=== PATIENT | female | born 1970 | race Caucasian/White ===

== ENCOUNTER 2017-10-13 09:02 | Outpatient (CLI) | payer BC ==
[2017-10-13] MEDS ORDERED: Iopamidol 370 76% 100 ML VIAL ONE (16:46)
== END 2017-10-13 09:03 | disposition home or self-care (01) ==
LOC: BICCT 09:02
PROVIDERS: ATTEND Internal Medicine Hematology & Oncology
DX: C78.7 Secondary malignant neoplasm of liver and intrahepatic bile duct (principal); C56.1 Malignant neoplasm of right ovary; K76.89 Other specified diseases of liver
CPT/HCPCS: 74177

== ENCOUNTER 2018-01-19 07:37 | Outpatient (CLI) | payer BC ==
[2018-01-19] MEDS ORDERED: ISOVUE-370 76%-LOCM 1 ML ONE (12:35)
== END 2018-01-19 07:38 | disposition home or self-care (01) ==
LOC: BICCT 07:37
PROVIDERS: ATTEND Internal Medicine Hematology & Oncology
DX: C56.1 Malignant neoplasm of right ovary (principal); C78.7 Secondary malignant neoplasm of liver and intrahepatic bile duct; K76.89 Other specified diseases of liver; K43.9 Ventral hernia without obstruction or gangrene; R19.00 Intra-abdominal and pelvic swelling, mass and lump, unspecified site
CPT/HCPCS: 74177

== ENCOUNTER 2018-04-20 09:03 | Outpatient (CLI) | payer BC ==
[2018-04-20] MEDS ORDERED: ISOVUE-370 76%-LOCM 1 ML ONE (12:21)
--- NOTE | 2018-04-20 13:12 | CT ---
CT ABDOMEN WITH CONTRAST CT PELVIS WITH CONTRAST: COMPARISON: 01/19/18 and 10/13/17. HISTORY: Malignant neoplasm of the ovary. 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 The patient is currently on chemotherapy. FINDINGS: ABDOMEN CT: No masses or consolidation of the lung bases. Heart size is normal. No pericardial effusion. The d escending thoracic aorta and abdominal aorta have a normal caliber. No periaortic fat stranding. No gastrohepatic, retrocrural, or periportal lymphadenopathy. Intra- and extrahepatic portal vein is patent. Unremarkable gallbladder. Spleen, pancreas, and adrenal glands have appropriate enhancement. There is an ill-defined hypodense lesion in the posterior segment of the right hepatic lobe measuring 2.1 x 1.1 cm. Intrahepatic metastases is favored. Additional hepatic masses are not appreciated. Previously, this mass measured approximately 1.9 x 0.7 cm. No mesenteric mass, lymphadenopathy, free air, or free fluid. Redemonstration of ventral abdominal hernia containing a segment of transverse colon through the defe ct. No associated obstruction. Stable surgical clips in the left abdominal mesentery. Stable nodularity. Gastroc mucosa, duodenum, and multiple normal-caliber small bowel loops are noted. Ileocecal junctio n is normal. Unremarkable colon. Symmetric enhancement of the kidneys. No obstructive uropathy. PELVIC CT: Decompressed urinary bladder. Surgically absent uterus. No pelvic mass, lymphadenopathy, free air, or free fluid. No lytic or blastic lesions in the osseous structures. IMPRESSION: 1. Redemonstration of an indeterminate lesion in the right hepatic lobe. When compared to prior exa ms, no significant appreciable change. In September of 2017, this lesion measured 2.0 x 1.8 cm. 2. Stable nodularity in the left abdominal mesentery. 3. Redemonstration of ventral abdominal wall hernia containing transverse colon without associated b owel obstruction. POS: [facility]
== END 2018-04-20 09:04 | disposition home or self-care (01) ==
LOC: BICCT 09:03
PROVIDERS: ATTEND Internal Medicine Hematology & Oncology
DX: C56.1 Malignant neoplasm of right ovary (principal); C78.7 Secondary malignant neoplasm of liver and intrahepatic bile duct; K76.9 Liver disease, unspecified; K43.9 Ventral hernia without obstruction or gangrene; K66.8 Other specified disorders of peritoneum
CPT/HCPCS: 74177

== ENCOUNTER 2018-06-11 09:10 | Outpatient (CLI) | payer BC | END 2018-06-11 09:11 | disposition home or self-care (01) | LOC: BICMAMMO 09:10 | PROVIDERS: ATTEND Internal Medicine Hematology & Oncology | DX: Z12.31 Encounter for screening mammogram for malignant neoplasm of breast (principal); Z80.3 Family history of malignant neoplasm of breast | CPT/HCPCS: 77063; 77067 ==

== ENCOUNTER 2018-07-23 08:27 | Outpatient (CLI) | payer BC ==
--- NOTE | 2018-07-23 11:07 | CT ---
CT CHEST AND ABDOMEN AND PELVIS WITH IV CONTRAST: DATE: 07/23/2018. PROVIDED CLINICAL HISTORY: History of ovarian cancer. FINDINGS: Comparison is made with the examination noted 04/20/2018. The heart, pericardium, and great vessels demonstrate a normal CT appearance. The airway appears pat ent and of normal caliber. No evidence for thoracic lymph node enlargement. The lungs are free of s ignificant opacity. No pleural fluid or pleural thickening is evident. Peritoneal-based soft tissue nodularity appears not significantly changed with respect to the prior s tudy. Interval decrease in size in right hepatic lobe hypodensity now measuring about 1.4 cm in grea test transverse dimension as compared to 2.1 cm on the prior study. The solid abdominal organs demon strate an otherwise stable CT appearance. There is no bowel dilatation, inflammatory fat stranding, free fluid, or lymph node enlargement appar ent. Colon containing ventral abdominal hernia is again demonstrated, with the amount of colon herni ated appearing increased with respect to the prior study. There are several new small bowel-containi ng ventral abdominal hernias involving the more inferior aspects of the anterior abdominal wall. The regional major vascular structures appear unremarkable. The osseous structures demonstrate no co ncerning lytic or blastic lesions. IMPRESSION: 1. Unremarkable CT of the chest. 2. Interval decrease in size of right hepatic lobe hypodensity. 3. Stable peritoneal-based soft tissue nodularity. 4. Ventral abdominal hernias as above. POS: [facility]
== END 2018-07-23 08:28 | disposition home or self-care (01) ==
LOC: BICCT 08:27
PROVIDERS: ATTEND Internal Medicine Hematology & Oncology
DX: C78.7 Secondary malignant neoplasm of liver and intrahepatic bile duct (principal); C56.1 Malignant neoplasm of right ovary; K43.9 Ventral hernia without obstruction or gangrene
CPT/HCPCS: 71260; 74177

== ENCOUNTER 2018-10-23 08:00 | Outpatient (CLI) | payer BC ==
--- NOTE | 2018-10-23 09:24 | CT ---
CT ABDOMEN AND PELVIS WITH ORAL AND IV CONTRAST: Date: 10/23/18 HISTORY: Ovarian cancer. Malignant neoplasm of right ovary, secondary malignant neoplasm of liver and intrahep atic bile duct. Patient is on chemotherapy. COMPARISON: 07/23/18 and 04/20/18. FINDINGS: Lung bases are clear. Soft tissue nodularity in the peritoneum/omentum is stable. No free air, free f luid, or lymphadenopathy is noted in the abdomen or pelvis. The heterogeneous lesion in the right lobe of the liver noted on the previous exam currently measures 18.0 mm (previously 14.0 mm). No new liver lesions are seen. The spleen, pancreas, adrenal glands, a nd kidneys are normal. The small bowel loops are not abnormally dilated. There is a stable colon containing ventral abdomina l hernia. Multiple small ventral hernias containing unobstructed loops of small bowel are stable. The patient is post hysterectomy. No calcified gallstones are seen. There is no evidence of aneurysma l dilatation of the abdominal aorta. There are degenerative changes of the spine. No osteolytic or os teoblastic lesions are seen. IMPRESSION: 1. Mild interval increase in size of the right liver lobe lesion since 07/23/18. 2. Stable peritoneal based soft tissue nodularity. 3. Stable ventral abdominal hernias. POS: [facility]
[2018-10-23] MEDS ORDERED: ISOVUE-370 76%-LOCM 1 ML ONE (15:24)
== END 2018-10-23 08:01 | disposition home or self-care (01) ==
LOC: BICCT 08:00
PROVIDERS: ATTEND Internal Medicine Hematology & Oncology
DX: C56.1 Malignant neoplasm of right ovary (principal); C78.7 Secondary malignant neoplasm of liver and intrahepatic bile duct; D70.8 Other neutropenia; K43.9 Ventral hernia without obstruction or gangrene; K76.9 Liver disease, unspecified
CPT/HCPCS: 74177; Q9966

== ENCOUNTER 2019-03-26 07:29 | Outpatient (CLI) | payer BC ==
--- NOTE | 2019-03-26 08:49 | CT ---
CT OF CHEST AND ABDOMEN AND PELVIS: DATE: 03/26/2019. COMPARISON: CT of abdomen and pelvis 10/23/2018, CT of the chest, abdomen, and pelvis 07/23/2018, and CT of the ab domen and pelvis 04/20/2018. HISTORY: Right ovarian malignancy, hepatic metastatic disease, rising CA-125 levels. TECHNIQUE: Axial CT imaging at 5 mm intervals from the thoracic inlet through the pubic symphysis with intraveno us and oral contrast. Coronal reformatted imaging obtained. FINDINGS: No lymphadenopathy is noted within the axillary, hilar, or mediastinal regions. No pleural, pericardi al, or mediastinal fluid. Vascular structures of the chest appear patent. No pneumothorax noted. No discrete pulmonary parenchymal mass lesion or nodule noted on either side. No endobronchial lesion is seen on either side. Review of the osseous structures of the chest demonstrate no acute findings. No free intraperitoneal air or fluid. Soft tissue nodularity involving the peritoneum on the surface of the right lobe of the liver within the anterior right upper quadrant is stable when compared to multiple prior examinations. There is a lesion within the right lobe of the liver measuring approximately 2.1 x 1.5 cm, slightly increased in size when compared to 10/23/2018 at which time the lesion measured 1.3 x 1.8 cm. This lesion measured 1.3 x 1.4 cm on 07/23/2018 and measured 2.1 x 1.2 cm on 04/20/2018. No additional liver lesio n is seen. Gallbladder and spleen appear unremarkable. Pancreas, adrenal glands, and kidneys demonstrate no acute findings. Uterus is surgically absent. There is an area of soft tissue nodularity in the right hemipelvis adjacent to the sigmoid colon on i mage 106 measuring 1 cm in AP dimension. This has increased from the most recent prior study at which time it measured 6-7 mm. This may represent a small metastatic focus. In addition, on image 108 , within the left hemipelvis there is a soft tissue nodule adjacent to the colon measuring 1.4 cm, increased from 7 mm on the most recent prior exam. There is a ventral hernia containing nonobstructed bowel. Defect in anterior abdominal wall measures 4.4 cm in transverse dimension and hernia sac measures at least 7-8 cm in transverse dimension. Just below this there is a second small hernia containing a nonobstructed loop of small bowel. There is no evidence for bowel obstruction. The appendix is abnormal on this examination. The appendix is dilated, measuring 1.1 cm in transverse dimension. There is also mucosal thickening and enhancement of the appendix. This may represent acute appendicitis in the proper clinical setting. There are subtle areas of soft tissue nodularity involving the mesenteric fat in the left upper quadr ant, which includes a soft tissue nodule measuring up to 1.1 cm in craniocaudal dimension on coronal image 21,, slightly enlarged when compared to the 10/23/2018 examination at which time this no dule measured 9-10 mm. Angulated soft tissue nodularity noted in the mid right abdomen anterior to the ascending colon, joana lar when compared to multiple prior exams. No lymphadenopathy is appreciated within the abdomen or pelvis. Review of the osseous structures of the abdomen/pelvis demonstrate no worrisome lytic or blastic lesi ons. There is multilevel lower lumbar spine facet hypertrophy. IMPRESSION: 1. Mild interval enlargement in metastatic lesion within the right lobe of the liver. 2. Subtle increased conspicuity of soft tissue nodularity within the left upper quadrant and pelvis, which may signify early slight progression of metastatic disease 3. New abnormal appearance of the appendix. This may signify acute appendicitis. Results were called to Dr. Das at 9:00 AM 03/26/2019. CODE CR Transcribed Date/Time: 03/26/2019 9:23 AM
[2019-03-26] MEDS ORDERED: ISOVUE-370 76%-LOCM 1 ML ONE (12:31)
== END 2019-03-26 07:30 | disposition home or self-care (01) ==
LOC: BICCT 07:29
PROVIDERS: ATTEND Internal Medicine Hematology & Oncology
DX: C78.7 Secondary malignant neoplasm of liver and intrahepatic bile duct (principal); C56.1 Malignant neoplasm of right ovary; R16.0 Hepatomegaly, not elsewhere classified
CPT/HCPCS: 71260; 74177

== ENCOUNTER 2019-03-31 15:23 | Outpatient (CLI) | payer BC ==
[2019-03-31 16:30] LABS: #Eosinphils 0.1 thou/uL (0.0-0.7); #Lymphocytes 2.6 thou/uL (1.20-3.40); #Monocytes 0.8 thou/uL (0.11-0.59); %Basophils 0.5 % (0.0-1.0); %Eosinophils 1.5 % (0.0-10.0); %Lymphocytes 26.8 % (21.0-51.0); %Neutrophils 63.2 % (42.0-75.0); Hemoglobin 15.9 g/dL (12.0-16.0); Mean Corpuscular HGB CONC 34.1 g/dL (32.0-36.0); Mean Corpuscular Hemoglobin 33.5 pg (27.0-31.0); Mean Corpuscular Volume 98.3 fL (78.0-98.0); Mean Platelet Volume 7.2 fL (7.4-10.4); Platelet Count 264 thou/uL (130-400); RBC Distribution Width 14.4 % (11.5-14.5); Red Blood Cell (RBC) Count 4.76 mill/uL (4.20-5.40); White Blood Cell (WBC) Count 9.5 thou/uL (4.8-10.8)
[2019-03-31 16:55] LABS: ALT (SGPT) 14 U/L (8-55); AST (SGOT) 17 U/L (5-34); Albumin 3.8 g/dL (3.5-5.0); Alkaline Phosphatase 96 U/L (40-150); Anion Gap 15 mmol/L (10-20); BUN (Urea Nitrogen) 8 mg/dL (7.0-18.7); Bilirubin, Total 0.7 mg/dL (0.2-1.2); Calc. Creatinine Clearance 0 mL/min (70-130); Calcium 9.8 mg/dL (7.8-10.44); Carbon Dioxide 28 mmol/L (22-29); Chloride 99 mmol/L (98-107); Estimated GFR-MDRD 88; Globulin 2.9 g/dL (2.4-3.5); Glucose 93 mg/dL (70-105); Potassium 3.9 mmol/L (3.5-5.1); Protein, Total 6.7 g/dL (6.0-8.3); Sodium 138 mmol/L (136-145)
== END 2019-03-31 15:24 | disposition home or self-care (01) ==
LOC: LABBT 15:23
PROVIDERS: ATTEND Surgery
DX: K36 Other appendicitis (principal)
CPT/HCPCS: 80053; 85025

== ENCOUNTER 2019-04-05 05:47 | Day surgery (SDC) | payer BC ==
[2019-03-31 15:43] VITALS: BMI 34.3
[2019-04-05] MEDS ORDERED: cefOXitin 2 GM VIAL ONE (06:13)
[2019-04-05] MEDS ORDERED: Sodium Chloride 0.9% 100 ML ONE (06:13)
[2019-04-05] MEDS ORDERED: Bupivacaine/Epinephrine 0.25% 30 ML VIAL ONE (06:45)
[2019-04-05] MEDS ORDERED: Midazolam HCl 2 mg/2 ml Vial ONE (07:06)
[2019-04-05] MEDS ORDERED: Fentanyl 250 MCG/5 ML VIAL ONE (07:08)
[2019-04-05] MEDS ORDERED: SUGAMMADEX SODIUM 200 MG/2 ML VIAL ONE (08:28)
[2019-04-05] MEDS ORDERED: Promethazine HCl 25 MG/ML VIAL ONE (08:38)
[2019-04-05] MEDS ORDERED: Fentanyl 100 MCG/2 ML VIAL ONE (09:00)
--- NOTE | 2019-04-05 10:53 | OP ---
DATE OF PROCEDURE: 04/05/2019 PREOPERATIVE DIAGNOSIS: Chronic appendicitis with history of ovarian cancer. PROCEDURES PERFORMED: Laparoscopic appendectomy and excision of peritoneal nodule. INDICATIONS: This is a 48-year-old female, who is undergoing chemotherapy for disseminated ovarian cancer, who on followup CT was found to have an enlarged dilated appendiceal tip that was suspicious. She had some mild right lower quadrant tenderness. FINDINGS: There was some peritoneal nodules, but they were scattered and rare. The appendix did not appear to be inflamed, but did have a dilated tip in a narrow base. DESCRIPTION OF PROCEDURE: After informed consent was obtained, the patient was taken to the operating room and given general endotracheal anesthesia, placed in the supine position. Abdomen was prepped and draped in usual fashion. Local anesthesia was infiltrated subcutaneously and deep. A 5-mm incision was performed in the right upper quadrant to avoid adhesions. A Veress needle was inserted. Drop test performed. Pneumoperitoneum was created to a volume of 2 L of carbon dioxide. Utilizing a bladeless 5-mm trocar and 0-degree laparoscope, direct visual entry into the abdominal cavity was performed. Pneumoperitoneum was created to a pressure of 15 mmHg. Then, a 12-mm port was placed subumbilical and another 5-mm port placed suprapubic. The appendix was found. The mesoappendix divided, utilizing the LigaSure. The base of the appendix was divided with a linear 45 mm white load stapler. A peritoneal nodule was found and this was excised utilizing the LigaSure and placed in the endosac with the appendix, then retrieved and sent separately. Hemostasis was assured. Trocars and retractors were removed after the fascia was closed with 0 Vicryl suture and the GraNee needle in the midline. Then, the skin closed with interrupted 4-0 Rapide. Dermabond applied. The patient tolerated the procedure well, transferred to Recovery in good condition. Sponge and needle count verified correct x2. Job ID: [id number]
[2019-04-05] MEDS ORDERED: Glycopyrrolate 0.2 MG/ML 5 ML SYRINGE ONE (14:46)
[2019-04-05] MEDS ORDERED: Dexamethasone 20 MG/5 ML VIAL ONE (14:46)
[2019-04-05] MEDS ORDERED: Ondansetron PF 4 MG/2 ML Vial ONE (14:46)
[2019-04-05] MEDS ORDERED: PROPOFOL 200 MG/20 ML VIAL ONE (14:46)
[2019-04-05] MEDS ORDERED: Rocuronium Bromide 10 MG/ML (10ML VIAL) ONE (14:46)
== END 2019-04-05 10:38 | disposition home or self-care (01) ==
LOC: SDC 05:47
PROVIDERS: ATTEND Surgery
PROC: 0DTJ4ZZ Resection of Appendix, Percutaneous Endoscopic Approach (ICD-10-PCS; principal; 2019-04-05)
DX: C78.5 Secondary malignant neoplasm of large intestine and rectum (principal); C56.9 Malignant neoplasm of unspecified ovary; K66.8 Other specified disorders of peritoneum; F17.210 Nicotine dependence, cigarettes, uncomplicated; E66.01 Morbid (severe) obesity due to excess calories; K21.9 Gastro-esophageal reflux disease without esophagitis; J45.909 Unspecified asthma, uncomplicated; Z68.34 Body mass index [BMI] 34.0-34.9, adult; Z79.899 Other long term (current) drug therapy; Z88.1 Allergy status to other antibiotic agents
CPT/HCPCS: 88304; 88305; 88341; 88342; J0694; J1100; J2250; J2405; J2550; J2704; J3010; J3490

== ENCOUNTER 2019-08-05 08:17 | Outpatient (CLI) | payer MEDICARE ==
--- NOTE | 2019-08-05 09:42 | CT ---
CT OF THE CHEST, ABDOMEN AND PELVIS WITH IV CONTRAST INDICATION: History of ovarian malignancy with secondary malignancy of the liver and intrahepatic abida e ducts COMPARISON: CT of the chest, abdomen and pelvis dated March 26, 2019, CTA of the abdomen and pelvis dated October 23, 2018, CTA of the chest, abdomen and pelvis dated July 23, [address] the abdomen and pelvis dated April 20, 2018. FINDINGS: CHEST: Lungs: There are areas of subsegmental volume loss involving the lingula and right lower lobe. No simon picious pulmonary nodule is identified. Pleural space: No effusion. Mediastinum: No pathologically enlarged lymph nodes are evident. Axilla: No pathologically enlarged lymph nodes. ABDOMEN: Lung bases: Clear Liver: The hypodense lesion involving segment 6 of the right hepatic lobe on image 61 of series 2 is relatively stable measuring 1.9 x 2.1 cm were previously the lesion measured 2.0 x 1.9 cm. Gallbladder: Contracted Pancreas: Normal. Adrenal glands: Normal. Spleen: Normal. Kidneys and ureters: Normal. No hydronephrosis. Vasculature: Normal. Lymph nodes:No lymphadenopathy. Free fluid in abdomen:No free fluid is evident. PELVIS: Small and large bowel: There is stable anterior abdominal wall incisional hernias containing loops of small bowel and colon. Appendix:Surgically absent Bladder: Normal. Rectal and perirectal soft tissues:Normal. Reproductive structures: Surgically absent Free fluid in pelvis: The soft tissue nodularity involving the right aspect uterine resection site is increased in prominence. There is a curvilinear soft tissue mass now present right of midline measuring approximately 6.1 x 1.9 cm on image 105 of series 2 and image 32 of series 5. There is a cu rvilinear enlarging soft tissue nodularity, left of midline, seen on image 108 of series 2 measuring 3.6 cm that has increased in size from the prior exam. There is worsening mesenteric nodula rity seen involving the right and left upper quadrants of the abdomen. There is caking underlying the undersurface of both hemidiaphragms is increased in prominence. Index peritoneal mesenteric nodul e within the left upper quadrant of the abdomen now measures 2.1 cm were previously it measured approximately 1.1 cm. There is accentuated mesenteric nodule within the right upper quadrant of the a bdomen on image 66 of series 2 measuring 3.3 cm were previously it measured approximately 2.5 cm. There is worsening nodularity seen within the right paracolonic gutter. Lymphadenopathy pelvis: No lymphadenopathy is evident. Osseous structures: No acute osseous abnormality. No destructive osteolytic or osteoblastic lesion i s identified. There is scattered degenerative and osteoarthritic changes. Soft tissues:Normal. IMPRESSION: 1. Worsening peritoneal carcinomatosis involving the abdomen and pelvis. 2. Stable hypodense lesion involving the right hepatic lobe. 3. Interval appendectomy. 4. Stable anterior abdominal incisional hernia contains loops of small bowel and colon.
[2019-08-05] MEDS ORDERED: Iopamidol-370 76% 500 ML 1 ML ONE (13:32)
== END 2019-08-05 08:18 | disposition home or self-care (01) ==
LOC: BICCT 08:17
PROVIDERS: ATTEND Internal Medicine Hematology & Oncology
DX: C56.1 Malignant neoplasm of right ovary (principal); C78.7 Secondary malignant neoplasm of liver and intrahepatic bile duct; C78.6 Secondary malignant neoplasm of retroperitoneum and peritoneum; K76.9 Liver disease, unspecified; K43.2 Incisional hernia without obstruction or gangrene; D70.8 Other neutropenia; Z90.49 Acquired absence of other specified parts of digestive tract
CPT/HCPCS: 36415; 71260; 74177; 80053; 82248; 83615; 84100; 84550; 85025; 86304; Q9967

== ENCOUNTER → 2019-08-19 | Day surgery (SDC) | payer MEDICARE ==
[~2019-08-19] MED LIST: Iopamidol 300 61% 50 ML VIAL FS ONE
--- NOTE | 2019-08-19 10:27 | RAD ---
Fluoroscopic vascular port check HISTORY: Left subclavian Mediport nonfunctioning. FINDINGS: Sterile access obtained by nursing personnel to the left subclavian Mediport. Isovue-300 co ntrast material carefully injected. With significant pressure required, a small amount of contrast was seen to extend through the catheter tip and immediately adjacent to the catheter tip along its le ngth, including the extrathoracic portion. Injected contrast flow was never brisk enough to confirm venous flow away from the catheter. Review of CT images from 08/05/2019 shows a faint hyperdense fibrous sheath encasing the distal portion of the vascular catheter, extending extrathoracic to the left infraclavicular level. Catheter was flushed with small amount of sterile saline. Needle removed. Patient tolerated the proce dure well and was dismissed in good condition. IMPRESSION: Large fibrous sheath encasing most or all of the left subclavian Mediport catheter. Minim al contrast was able to be injected, and brisk venous flow from the injected contrast was not seen.
== END ==
LOC: SPEC 08:20
PROVIDERS: ATTEND Internal Medicine Hematology & Oncology
PROC: B3121ZZ Fluoroscopy of Left Subclavian Artery using Low Osmolar Contrast (ICD-10-PCS; principal; 2019-08-19)
DX: T82.598A Other mechanical complication of other cardiac and vascular devices and implants, initial encounter (principal); C56.1 Malignant neoplasm of right ovary; C78.7 Secondary malignant neoplasm of liver and intrahepatic bile duct; D70.8 Other neutropenia; Z88.1 Allergy status to other antibiotic agents
CPT/HCPCS: 36598; J1642; Q9967

== ENCOUNTER 2019-09-06 08:21 | Inpatient (IN) | payer MEDICARE ==
[2019-09-06 09:09] LABS: ALT (SGPT) 23 U/L (8-55); AST (SGOT) 20 U/L (5-34); Albumin 3.8 g/dL (3.5-5.0); Alkaline Phosphatase 98 U/L (40-110); Anion Gap 16 mmol/L (10-20); BUN (Urea Nitrogen) 13 mg/dL (7.0-18.7); Bilirubin, Total 0.7 mg/dL (0.2-1.2); Calc. Creatinine Clearance 0 mL/min (70-130); Calcium 9.5 mg/dL (7.8-10.44); Carbon Dioxide 24 mmol/L (22-29); Chloride 99 mmol/L (98-107); Estimated GFR-MDRD 87; Globulin 2.9 g/dL (2.4-3.5); Glucose 128 mg/dL (70-105); Lipase 5 U/L (8-78); Protein, Total 6.7 g/dL (6.0-8.3); Sodium 135 mmol/L (136-145)
[2019-09-06] MEDS ORDERED: Ondansetron PF 4 MG/2 ML Vial ONE (09:09)
[2019-09-06] MEDS ORDERED: Morphine 4 MG/ML VIAL ONE (09:09)
[2019-09-06 09:19] LABS: #Basophils 0.1 thou/uL (0.0-0.2); #Eosinphils 0.1 thou/uL (0.0-0.7); #Lymphocytes 2.2 thou/uL (1.20-3.40); #Monocytes 1.9 thou/uL (0.11-0.59); #Neutrophils 10.8 thou/uL (1.40-6.50); %Basophils 0.4 % (0.0-1.0); %Eosinophils 0.8 % (0.0-10.0); %Lymphocytes 14.5 % (21.0-51.0); %Monocytes 12.6 % (0.0-10.0); %Neutrophils 71.8 % (42.0-75.0); Hemoglobin 15.9 g/dL (12.0-16.0); Mean Corpuscular Hemoglobin 33.7 pg (27.0-31.0); Mean Platelet Volume 7.7 fL (7.4-10.4); Platelet Count 519 thou/uL (130-400); RBC Distribution Width 14.7 % (11.5-14.5); Red Blood Cell (RBC) Count 4.72 mill/uL (4.20-5.40); White Blood Cell (WBC) Count 15.1 thou/uL (4.8-10.8)
[2019-09-06 09:38] LABS: Bilirubin Negative (Negative); Blood, Urine Negative (Negative); Clarity Clear (Clear); Glucose, Urine (Dipstick) Normal (Negative); Leukocyte Negative Leu/uL (Negative); Nitrite Negative (Negative); Protein, Urine (Dipstick) 50 mg/dL (Neg-Trace); RBC/HPF 0-3 HPF (0-3); Squamous Epithelial 0-3 HPF (0-3); WBC/HPF 0-3 HPF (0-3)
[2019-09-06 09:48] LABS: Bacteria/HPF 1+ HPF (None Seen)
--- NOTE | 2019-09-06 10:49 | CT ---
CT Abdomen Pelvis W Con HISTORY: Nausea, vomiting, diarrhea and abdominal pain bleeding cancer with liver metastases COMPARISON: 08/05/2019 FINDINGS: There are mild dependent changes at the right lung base. No calcified gallstones are seen. 2 cm hypodense lesion in segment 6 of the right hepatic lobe is stable. The spleen, pancreas, adrenal glands and kidneys are normal. There is a small amount of free fluid in the abdomen and pelvis which is new since the last exam. Per itoneal nodules are slightly smaller compared to the previous study measuring about 15 mm in the left upper quadrant and the right pelvis. Ventral hernias containing bowel are again seen.. There is a wall thickening, enhancement and mild dilatation of the distal small bowel loops, new since the last exam. There are degenerative changes in the spine no osteolytic or osteoblastic lesions are seen . IMPRESSION: Findings are suggestive of enteritis and partial small bowel obstruction.
[2019-09-06] MEDS ORDERED: Acetaminophen 325 MG TAB PO PRN (12:12)
--- NOTE | 2019-09-06 12:25 | PDOC.HHP ---
Hospitalist HPI - History of Present Illness vomiting History of Present Illness: Ms. Mosley is a 49-year-old lady with past medical history of ovarian cancer on chemotherapy, hypertension, hypothyroidism who presents to the emergency room with nausea, vomiting, loose stools since Friday. She states prior to this she was fine. She ate some leftover sausage and sauerkraut on Friday night and went to bed. When she awoke on Friday she started to feel queasy and started vomiting around noon time. The vomitus is described as clear, nonbilious, nonbloody. She states that since Friday she has had multiple episodes and is unable to quantify the number of time she has vomited. This is accompanied by a crampy abdominal pain, which radiates across the umbilicus, the severity was about a 7 out of 10, intermittent. Additionally today and last night started having some greenish loose stools without any mucus or blood noted. She denies any fever or chills since symptom onset. She was scheduled to undergo chemotherapy this week, but felt quite weak today and decided to come to the emergency room. Hospitalist ROS - Review of Systems Constitutional: denies: fever, chills, sweats, weakness, malaise, other Eyes: denies: pain, vision change, conjunctivae inflammation, eyelid inflammation, redness, other ENT: denies: ear pain, ear discharge, nose pain, nose discharge, nose congestion , mouth pain, mouth swelling, throat pain, throat swelling, other Respiratory: denies: cough, dry, shortness of breath, hemoptysis, SOB with excertion, pleuritic pain, sputum, wheezing, other Cardiovascular: denies: chest pain, palpitations, orthopnea, paroxysmal noc. dyspnea, edema, light headedness, other Gastrointestinal: reports: nausea, abdominal pain, diarrhea Genitourinary: denies: dysuria, frequency, incontinence, hematuria, retention, other Musculoskeletal: denies: neck pain, shoulder pain, arm pain, back pain, hand pain, leg pain, foot pain, other Skin: denies: rash, lesions, lilian, bruising, other Neurological: denies: weakness, numbness, incoordination, change in speech, confusion, seizures, other - Medication Medications: lisinopril FriSep 06, 2019 09:26 RomeroSIS giraldo Jessica TABLET : Strength - 10 mg : ORAL Patient Dose: 1 tab(s) Oral once a day. [place] FriSep 06, 2019 09:26 SIS Jasso Jessica TABLET : Strength - 7.5 mg-325 mg : ORAL Patient Dose: 1 tab(s) Oral. Zofran ODT FriSep 06, 2019 09:26 SIS Jasso Jessica TABLET,DISINTEGRATING : Strength - 4 mg : ORAL Patient Dose: 1 tab(s) Oral As Needed. pregabalin (bulk) FriSep 06, 2019 09:26 SIS Jasso Jessica powder : Strength - 100 % : MISCELLANEOUS Patient Dose: 75 mg Oral once a day. prochlorperazine FriSep 06, 2019 09:27 SIS Jasso Jessica suppository : Strength - 5 mg : RECTAL Patient Dose: 10 mg Oral As Needed. valACYclovir FriSep 06, 2019 09:27 SIS Jasso Jessica tablet : Strength - 1,000 mg : ORAL Patient Dose: 1 g Oral once a day. dicyclomine oral FriSep 06, 2019 09:27 SIS Jasso Jessica capsule : Strength - 10 mg : ORAL Patient Dose: 10 mg Oral 2 times a day. ALPRAZolam FriSep 06, 2019 09:27 SIS Jasso Jessica tablet : Strength - 0.5 mg : ORAL Patient Dose: Unknown. dexamethasone FriSep 06, 2019 09:28 SIS Jasso Jessica tablet : Strength - 4 mg : ORAL Patient Dose: Unknown.PRIOR TO CHEMO. hydrOXYzine HCl oral FriSep 06, 2019 09:28 SIS Jasso Jessica tablet : Strength - 25 mg : ORAL Patient Dose: As Needed. benzonatate FriSep 06, 2019 09:29 SIS Jasso Jessica capsule : Strength - 100 mg : ORAL Patient Dose: As Needed. rosuvastatin FriSep 06, 2019 09:29 SIS Jasso Jessica tablet : Strength - 5 mg : ORAL Patient Dose: 5 mg Oral once a day. [place] Thyroid FriSep 06, 2019 09:29 SIS Jasso Jessica tablet : Strength - 30 mg : ORAL Patient Dose: 45 mg Oral once a day. DULoxetine FriSep 06, 2019 09:30 SIS Jasso, Taty capsule,delayed release(/EC) : Strength - 60 mg : ORAL Patient Dose: 60 mg Oral once a day. Hospitalist History - Past Medical History Source: patient Cardiac: reports: HTN Pulmonary: reports: no pertinent history AUT[employer] DAMAGE [employer]: reports: no pertinent history Gastrointestinal: reports: no pertinent history Heme/Onc: reports: Cancer (ovarian) Hepatobiliary: reports: no pertinent history Psych: reports: no pertinent history Musculoskeletal: reports: no pertinent history Rheumatologic: reports: no pertinent history Infectious Disease: reports: no pertinent history ENT: reports: no pertinent history Renal/: reports: no pertinent history Endocrine: reports: Hypothyroidism - Past Surgical History Past Surgical History: reports: Hysterectomy, Tonsillectomy - Family History Family History: reports: cancer (breast in mother) - Social History Smoking Status: Current some day smoker Alcohol: reports: Occassional Drugs: reports: none Living Situation: With Family Activity level: independent ambulation - Exam General Appearance: NAD, awake alert Eye: PERRL, anicteric sclera ENT: normocephalic atraumatic, no oropharyngeal lesions, moist mucosa Neck: supple, symmetric, no JVD, no thyromegaly, no lymphadenopathy, no carotid bruit Heart: RRR, no murmur, no gallops, no rubs, normal peripheral pulses Respiratory: CTAB, no wheezes, no rales, no ronchi, normal chest expansion, no tachypnea, normal percussion Gastrointestinal: soft, non-tender, non-distended, normal bowel sounds, no palpable masses, no hepatomegaly, no splenomegaly, no bruit Extremities: no cyanosis, no clubbing, no edema Skin: normal turgor, no lesions, no rashes Neurological: cranial nerve grossly intact, normal sensation to touch, no weakness, no focal deficits, no new deficit Musculoskeletal: normal tone, normal strength, no muscle wasting Psychiatric: normal affect, normal behavior, A&O x 3 Hospitalist Results - Labs Result Diagrams: 09/06/19 08:39 09/06/19 08:39 Lab results: WBC 15.1 thou/uL (4.8-10.8) H 09/06/19 08:39 Hgb 15.9 g/dL (12.0-16.0) 09/06/19 08:39 Hct 46.7 % (36.0-47.0) 09/06/19 08:39 MCV 99.0 fL (78.0-98.0) H 09/06/19 08:39 Plt Count 519 thou/uL (130-400) H 09/06/19 08:39 Neutrophils % 71.8 % (42.0-75.0) 09/06/19 08:39 Sodium 135 mmol/L (136-145) L 09/06/19 08:39 Potassium 4.0 mmol/L (3.5-5.1) 09/06/19 08:39 Chloride 99 mmol/L (98-107) 09/06/19 08:39 Carbon Dioxide 24 mmol/L (22-29) 09/06/19 08:39 BUN 13 mg/dL (7.0-18.7) 09/06/19 08:39 Creatinine 0.71 mg/dL (0.6-1.1) 09/06/19 08:39 Glucose 128 mg/dL (70-105) H 09/06/19 08:39 Calcium 9.5 mg/dL (7.8-10.44) 09/06/19 08:39 Total Bilirubin 0.7 mg/dL (0.2-1.2) 09/06/19 08:39 AST 20 U/L (5-34) 09/06/19 08:39 ALT 23 U/L (8-55) 09/06/19 08:39 Alkaline Phosphatase 98 U/L (40-110) 09/06/19 08:39 Serum Total Protein 6.7 g/dL (6.0-8.3) 09/06/19 08:39 Albumin 3.8 g/dL (3.5-5.0) 09/06/19 08:39 Lipase 5 U/L (8-78) L 09/06/19 08:39 Urine Ketones Negative mg/dL (Negative) 09/06/19 09:21 Urine Blood Negative (Negative) 09/06/19 09:21 Urine Nitrite Negative (Negative) 09/06/19 09:21 Ur Leukocyte Esterase Negative Matt/uL (Negative) 09/06/19 09:21 Urine RBC 0-3 HPF (0-3) 09/06/19 09:21 Urine WBC 0-3 HPF (0-3) 09/06/19 09:21 Ur Squamous Epith Cells 0-3 HPF (0-3) 09/06/19 09:21 Urine Bacteria 1+ HPF (None Seen) A 09/06/19 09:21 VITAL SIGNS [facility] Sep 06, 2019 08:22 SIS Lockett Lacee BP: 147/107, Pulse: 93, Resp: 20, Temp: 98.7 (Oral), Pain: 8, O2 sat: 97 on ( Room Air), Time: 09/06/2019 08:22. - EKG Interpretation EK lead EKG shows normal sinus rhythm, Rate (beats per minute): 70, Conduction normal, ST segments normal, T waves normal, [place] normal. - Radiology Interpretation CT scan - abdomen Status: report reviewed by ne Hospitalist H&P A/P - Problem (1) Enteritis Code(s): K52.9 - NONINFECTIVE GASTROENTERITIS AND COLITIS, UNSPECIFIED Status : Acute (2) Partial small bowel obstruction Status: Acute (3) Ovarian cancer Status: Acute (4) HTN (hypertension) Code(s): I10 - ESSENTIAL (PRIMARY) HYPERTENSION Status: Acute (5) Leukocytosis Code(s): D72.829 - ELEVATED WHITE BLOOD CELL COUNT, UNSPECIFIED Status: Acute (6) Hypothyroidism Code(s): E03.9 - HYPOTHYROIDISM, UNSPECIFIED Status: Acute (7) Liver lesion, right lobe Code(s): K76.9 - LIVER DISEASE, UNSPECIFIED Status: Chronic Assessment and Plan: Chronic, stable, pt aware, has had for [address] Das is her heme onc - Plan Plan: For observation in medical unit. Leukocytosis likely reactive to enteritis, partial SBO as viewed on CT, will continue to monitor Clear liquid diet, Zofran IV as needed, morphine IV as needed NS at 125 mL/h Conservative approach for now, no obvious sign of bacterial infection, hold off antibiotics Continue med from home once reconciled for chronic conditions DVT prophylaxis: SCDs CODE STATUS: Full code ACP: Surrogate decision maker is the father Disposition: Continue to treat gastroenteritis.
[2019-09-06 13:21] VITALS: BMI 34.2
[2019-09-06] MEDS: Morphine 2 MG/ML SYRINGE SLOW IVP PRN ×3 (13:38→23:25)
[2019-09-06] MEDS: Calcium Carbonate 500 MG ChewTAB PO PRN ×2 (13:39→19:18)
[2019-09-06] MEDS: Sodium Chloride 0.9% 1,000 ML IV SCH ×2 (13:43→21:34)
[2019-09-06] MEDS ORDERED: Iopamidol 370 76% 100 ML VIAL ONE ×2 (15:47→15:48)
[2019-09-06] MEDS ORDERED: Pantoprazole 40 MG VIAL IVP SCH (17:00)
[2019-09-06] MEDS: Ondansetron PF 4 MG/2 ML Vial IVP PRN (21:33)
[2019-09-07] MEDS: Morphine 2 MG/ML SYRINGE SLOW IVP PRN ×5 (04:01→23:36)
[2019-09-07] MEDS: Sodium Chloride 0.9% 1,000 ML IV SCH ×3 (05:40→20:33)
[2019-09-07 05:46] LABS: #Basophils 0.1 thou/uL (0.0-0.2); #Eosinphils 0.2 thou/uL (0.0-0.7); #Lymphocytes 2.1 thou/uL (1.20-3.40); #Monocytes 1.6 thou/uL (0.11-0.59); #Neutrophils 7.7 thou/uL (1.40-6.50); %Basophils 0.6 % (0.0-1.0); %Eosinophils 1.7 % (0.0-10.0); %Lymphocytes 18.3 % (21.0-51.0); %Monocytes 13.3 % (0.0-10.0); %Neutrophils 66.1 % (42.0-75.0); Hemoglobin 14.6 g/dL (12.0-16.0); Mean Corpuscular HGB CONC 34.1 g/dL (32.0-36.0); Mean Corpuscular Hemoglobin 34.6 pg (27.0-31.0); Mean Platelet Volume 7.6 fL (7.4-10.4); Platelet Count 431 thou/uL (130-400); RBC Distribution Width 14.7 % (11.5-14.5); Red Blood Cell (RBC) Count 4.21 mill/uL (4.20-5.40); White Blood Cell (WBC) Count 11.7 thou/uL (4.8-10.8)
[2019-09-07 05:48] LABS: Anion Gap 12 mmol/L (10-20); BUN (Urea Nitrogen) 11 mg/dL (7.0-18.7); Calc. Creatinine Clearance 167 mL/min (70-130); Calcium 8.1 mg/dL (7.8-10.44); Carbon Dioxide 24 mmol/L (22-29); Chloride 102 mmol/L (98-107); Estimated GFR-MDRD Greater than 90; Glucose 103 mg/dL (70-105); Potassium 3.4 mmol/L (3.5-5.1); Sodium 135 mmol/L (136-145)
[2019-09-07] MEDS ORDERED: ALPRAZolam 0.25 MG TAB PO PRN (07:29)
[2019-09-07] MEDS ORDERED: Ibuprofen 200 MG TAB PO PRN (07:29)
[2019-09-07] MEDS ORDERED: Non-Formulary Item 1 EACH (Albuterol Sulfate Hfa (Or) 1 PUFF) FS PRN (07:29)
--- NOTE | 2019-09-07 07:34 | PDOC.HOSPP ---
- Subjective Encounter Date: 09/07/19 Encounter Time: 10:00 Subjective: Patient still with significant abdominal pain, bloating, nausea. Hasn't vomited again this AM. About 5-6 diarrheal bowel movement this AM. Abd pain worsening, not well controlled by the Morphine anymore. - Objective Vital Signs & Weight: Vital Signs (12 hours) Temp Pulse Resp BP BP Pulse Ox 09/07/19 04:01 98.3 F 87 20 137/76 94 L 09/06/19 23:53 98.4 F 80 18 140/77 99 09/06/19 19:51 98.1 F 78 16 141/76 H 98 Weight Weight 219 lb I&O: 09/06/19 09/07/19 09/08/19 06:59 06:59 06:59 Intake Total 2445 Output Total 280 Balance 2165 Result Diagrams: 09/07/19 04:34 09/07/19 04:34 Hospitalist ROS - Review of Systems Constitutional: denies: fever, chills Respiratory: denies: cough, shortness of breath Cardiovascular: denies: chest pain, palpitations Gastrointestinal: reports: nausea, vomiting, abdominal pain, diarrhea - Medication Medications: Active Medications Generic Name Dose Route Start Last Admin Trade Name Freq PRN Reason Stop Dose Admin Calcium Carbonate 1,000 mg 09/06/19 12:12 09/06/19 19:18 Tums PO 1,000 mg Q4H PRN Administration Heartburn or Indigestion Sodium Chloride 1,000 mls @ 125 mls/hr 09/06/19 12:15 09/07/19 05:40 Normal Saline 0.9% IV 1,000 mls .Q8H ARIADNE Administration Morphine Sulfate 2 mg 09/06/19 12:12 09/07/19 04:01 Morphine SLOW IVP 2 mg Q4H PRN Administration Moderate to Severe Pain (6-10) Ondansetron HCl 4 mg 09/06/19 12:12 09/06/19 21:33 Zofran IVP 4 mg Q6H PRN Administration Nausea/Vomiting - Exam General Appearance: NAD, awake alert ENT: moist mucosa Heart: RRR, no murmur, no gallops, no rubs Respiratory: CTAB, no wheezes, no rales, no ronchi Gastrointestinal: soft, distended Gastrointestinal - other findings: decreased bowel sounds, diffusely tender but without guarding Psychiatric: normal affect, normal behavior, A&O x 3 Hosp A/P (1) Enteritis Code(s): K52.9 - NONINFECTIVE GASTROENTERITIS AND COLITIS, UNSPECIFIED Status : Acute (2) Partial small bowel obstruction Status: Acute (3) Leukocytosis Code(s): D72.829 - ELEVATED WHITE BLOOD CELL COUNT, UNSPECIFIED Status: Acute Plan: improving (4) Ovarian cancer Status: Chronic (5) Liver lesion, right lobe Code(s): K76.9 - LIVER DISEASE, UNSPECIFIED Status: Chronic (6) HTN (hypertension) Code(s): I10 - ESSENTIAL (PRIMARY) HYPERTENSION Status: Acute (7) Hypothyroidism Code(s): E03.9 - HYPOTHYROIDISM, UNSPECIFIED Status: Acute - Plan Giving IV fluids, oral fluids worsening abdominal pain so will put on bowel rest. NG tube if pain not improving. Will consult GI- Dr. Arias. Heme/Onc holding on chemo until next week after this resolves.
--- NOTE | 2019-09-07 07:46 | CON ---
DATE OF CONSULTATION: REASON FOR CONSULTATION: Ovarian cancer. HISTORY OF PRESENT ILLNESS: Ms. Mosley is a pleasant 49-year-old female with adenocarcinoma, likely ovarian primary, who started 4th line treatment with Alimta on 08/18. She had mild intermittent nausea after chemo, but it resolved. This weekend, she began to have intractable nausea and vomiting with abdominal pain. She presented to the ER this morning for evaluation. She underwent a CT scan of her abdomen and pelvis. Findings were suggestive of enteritis and a partial small- bowel obstruction. She denies any fever or chills or foul-smelling diarrhea. She was admitted for partial small-bowel obstruction. She is getting IV fluids and is on a clear liquid diet. She was seen at bedside and her pain is controlled with morphine. She does have a burning and full sensation in her stomach. She does take Prilosec daily and has not taken it for several days secondary to nausea. PAST MEDICAL HISTORY: 1. Stage IV ovarian adenocarcinoma. 2. Liver lesion, consistent with hemangioma. 3. Hemorrhoids. 4. Hypothyroidism. 5. Asthma. 6. Hypertension. PAST SURGICAL HISTORY: 1. Appendectomy. 2. Tonsillectomy. 3. Laparoscopic biopsy. ALLERGIES: TO CIPRO AND DOXYCYCLINE. HOME MEDICATIONS: 1. Albuterol. 2. Alprazolam. 3. [place] Thyroid 30 mg daily. 4. Breo Ellipta. 5. Crestor. 6. Duloxetine. 7. Flonase. 8. Hydrocodone 7.5. 9. Lisinopril 10. 10. Lyrica 75. 11. Zofran p.r.n. FAMILY HISTORY: Mother has breast cancer. SOCIAL HISTORY: Single, one child, lives with her parents. No alcohol, tobacco , or illicit drug use. REVIEW OF SYSTEMS: Ten-point review of systems is negative except for noted in HPI. PHYSICAL EXAMINATION: VITAL SIGNS: Temperature is 98.3, pulse is 79, respiratory rate 20, BP is 129/ 73, and she is 98% on room air. GENERAL: A well-developed, well-nourished female, in no acute distress. HEENT: Normocephalic and atraumatic. Pupils are equal and reactive to light. NECK: Supple. CV: Regular rate and rhythm. LUNGS: Clear. ABDOMEN: Mildly tender in the epigastric area. EXTREMITIES: No clubbing or cyanosis. SKIN: No rash. HEMATOLOGIC: No petechiae or purpura. NEUROLOGIC: Nonfocal. PERTINENT LABORATORY DATA AND X-RAYS: WBCs are 15.1, hemoglobin 15.9, hematocrit 46.7, and platelet count 515,000. She has 72% neutrophils and 15% lymphocytes. Sodium is 135, potassium 4.0, chloride 99, CO2 is 24, BUN is 13, creatinine 0.71 , and calcium 9.5. Bilirubin 0.7, AST is 20, ALT is 23, alkaline phosphatase is 98, serum total protein 6.7, albumin 3.8, globulin 2.5, and lipase is 5. Urine shows 1+ bacteria, but negative nitrites and leukocyte esterase. Radiology per HPI. ASSESSMENT: 1. Ovarian cancer, on Alimta chemotherapy. 2. Acute nausea, vomiting, and abdominal pain, possible enteritis and/or partial small bowel obstruction. DISCUSSION: The patient's pain has been controlled with morphine. She has significant heartburn and takes Prilosec daily. Will add Protonix to her medication list today. She is due for chemo tomorrow. We will postpone for the next week. Hopefully, she will feel better in 24 hours and be able to go home. Thank you for the consult. Job ID: [id number] [facility] CENTERKaur
[2019-09-07] MEDS ORDERED: PROVENTIL INHALER 6.7 G (200 INHALATIONS) INH PRN (07:47)
[2019-09-07] MEDS: Dicyclomine 10 MG CAP PO SCH ×2 (08:10→20:33)
[2019-09-07] MEDS: Lisinopril 10 MG TAB PO SCH (08:10)
[2019-09-07] MEDS: Pregabalin 75 MG CAP PO SCH (08:10)
[2019-09-07] MEDS: DULoxetine 60 MG CAP PO SCH (08:11)
[2019-09-07] MEDS: Pantoprazole 40 MG VIAL IVP SCH (08:13)
[2019-09-07] MEDS ORDERED: DOCUSATE PO SCH (09:00)
[2019-09-07] MEDS ORDERED: IRON FUM PO SCH (09:00)
[2019-09-07] MEDS ORDERED: Thyroid 30 MG TAB PO SCH (09:00)
[2019-09-07] MEDS ORDERED: FOLIC PO SCH (09:00)
[2019-09-07] MEDS ORDERED: Non-Formulary Item 1 EACH (Folic Acid [Folic Acid] 0.4 MG) PO SCH (09:00)
[2019-09-07] MEDS ORDERED: VALACYCLOVIR HCL PO SCH (09:00)
[2019-09-07] MEDS ORDERED: [UNRECOGNIZED DRUG - OTHER] PO SCH (09:00)
[2019-09-07] MEDS: Folic Acid 1 MG TAB PO SCH (09:30)
[2019-09-07] MEDS: Prenatal Vitamin 1 TAB PO SCH (09:30)
[2019-09-07] MEDS: Rosuvastatin 5 MG TAB PO SCH (09:30)
[2019-09-07] MEDS: valACYclovir 500 MG TAB PO SCH (10:11)
[2019-09-07] MEDS: Thyroid 30 MG TAB PO SCH (10:12)
[2019-09-07] MEDS: Ondansetron PF 4 MG/2 ML Vial IVP PRN (10:12)
--- NOTE | 2019-09-07 15:36 | PDOC.MOPN ---
Interval History: slightly better today. No nausea but increased abd pain. 4 liquid stools. - Vital Signs Vital Signs: Vital Signs (12 hours) Temp Pulse Resp BP BP Pulse Ox 09/07/19 11:50 97.6 F 79 16 143/80 H 97 09/07/19 08:00 98 F 88 16 177/96 H 97 09/07/19 04:01 98.3 F 87 20 137/76 94 L Weight Weight 219 lb - Physical Exam General: Alert, Oriented x3, No acute distress HEENT: Atraumatic, PERRLA, EOMI, Mucous membr. moist/pink Lungs: Clear to auscultation, Normal air movement Cardiovascular: Regular rate, Normal S1, Normal S2, No murmurs, Gallops, Rubs Abdomen: Other (tender lower) Extremities: No clubbing, No cyanosis, No edema, Normal pulses, No tenderness/ swelling Skin: No rashes, No breakdown, No significant lesion Neurological: Normal gait, Normal speech, Strength at 5/5 X4 ext, Normal tone, Sensation intact, Cranial nerves 3-12 NL, Reflexes 2+ Psych/Mental Status: Mental status NL, Mood NL - Labs Result Diagrams: 09/07/19 04:34 09/07/19 04:34 Lab results: Laboratory Results - last 24 hr 09/07/19 04:34: WBC 11.7 H, RBC 4.21, Hgb 14.6, Hct 42.7, MCV 101.0 H, MCH 34.6 H, MCHC 34.1, RDW 14.7 H, Plt Count 431 H, MPV 7.6, Neutrophils % 66.1, Lymphocytes % 18.3 L, Monocytes % 13.3 H, Eosinophils % 1.7, Basophils % 0.6, Neutrophils # 7.7 H, Lymphocytes # 2.1, Monocytes # 1.6 H, Eosinophils # 0.2, Basophils # 0.1 09/07/19 04:34: Sodium 135 L, Potassium 3.4 L, Chloride 102, Carbon Dioxide 24, Anion Gap 12, BUN 11, Creatinine 0.64, Estimated GFR (MDRD) Greater than 90, Glucose 103, Calcium 8.1 Status: lab reviewed by me A/P - Problem (1) Enteritis Current Visit: Yes Code(s): K52.9 - NONINFECTIVE GASTROENTERITIS AND COLITIS, UNSPECIFIED Status: Acute (2) Partial small bowel obstruction Current Visit: Yes Status: Acute (3) Ovarian cancer Current Visit: Yes Status: Chronic - Plan Plan: Slightly better today GI has been consulted If surgery needed, please call our office first.
[2019-09-08] MEDS: Sodium Chloride 0.9% 1,000 ML IV SCH ×3 (04:36→20:31)
[2019-09-08 05:44] LABS: #Eosinphils 0.2 thou/uL (0.0-0.7); #Lymphocytes 1.9 thou/uL (1.20-3.40); #Monocytes 1.4 thou/uL (0.11-0.59); #Neutrophils 5.9 thou/uL (1.40-6.50); %Basophils 0.5 % (0.0-1.0); %Eosinophils 1.9 % (0.0-10.0); %Lymphocytes 20.4 % (21.0-51.0); %Monocytes 14.8 % (0.0-10.0); %Neutrophils 62.5 % (42.0-75.0); Hemoglobin 12.5 g/dL (12.0-16.0); Mean Corpuscular HGB CONC 34.1 g/dL (32.0-36.0); Mean Corpuscular Hemoglobin 34.3 pg (27.0-31.0); Mean Platelet Volume 7.4 fL (7.4-10.4); Platelet Count 346 thou/uL (130-400); RBC Distribution Width 14.5 % (11.5-14.5); Red Blood Cell (RBC) Count 3.65 mill/uL (4.20-5.40); White Blood Cell (WBC) Count 9.4 thou/uL (4.8-10.8)
[2019-09-08 06:04] LABS: Anion Gap 10 mmol/L (10-20); BUN (Urea Nitrogen) 6 mg/dL (7.0-18.7); Calc. Creatinine Clearance 184 mL/min (70-130); Carbon Dioxide 26 mmol/L (22-29); Chloride 105 mmol/L (98-107); Estimated GFR-MDRD Greater than 90; Glucose 90 mg/dL (70-105); Magnesium 1.2 mg/dL (1.6-2.6); Phosphorus 3.2 mg/dL (2.3-4.7); Potassium 4.1 mmol/L (3.5-5.1); Sodium 137 mmol/L (136-145)
--- NOTE | 2019-09-08 07:37 | CON ---
DATE OF CONSULTATION: REASON FOR CONSULT: "Gastroenteritis and partial-bowel obstruction." HISTORY OF PRESENT ILLNESS: Ms. Msoley is a 49-year-old female who has ovarian carcinoma, metastatic, stage IV, diagnosed in 2017. She was initially treated with carboplatin and Taxol and then had a debulking surgery. She was going to get an experimental treatment, had advancing disease, and then was put on Doxil and Avastin for 17 months. She stopped treatment, was going to take a break for a short period of time, that ended up being about seven months, then when she was reevaluated in July of this year, had advancing disease with worsening carcinomatosis. She has had one treatment with Alimta at the end of July. She was going to have another treatment today, but over the weekend, she began to have flu-like symptoms with nausea, vomiting, and diarrhea and severe mid abdominal pain. As she was not improving, she came to the hospital yesterday. Here, she had a CT scan with thickening of the small bowel loops prior to going to the area of multiple hernias in the abdominal wall. Said that she had enteritis and a partial small-bowel obstruction on radiology. She denies any overt fever. She denies any sick contacts at home. She denies any recent antibiotics. Here, she is no longer having vomiting, but she is still having some diarrhea. Apparently, no stool studies have been performed or ordered. She had a white count of 15,000 yesterday, has dropped to 11,000 today. Platelets were 519,000 yesterday, 431 today. Her last CA-125 was 972 on August 05, it had been 342 in 03/2019. The patient does not feel that her hernias are nonreducible, but this is where the most of her pain is. She is feeling a little bit better than when she initially presented. PAST MEDICAL HISTORY: Ovarian cancer with carcinomatosis, hypothyroidism, and hypertension. PAST SURGICAL HISTORY: Hysterectomy, debulking for ovarian cancer, appendectomy, at which time her ovarian cancer was identified, previous oophorectomy. ALLERGIES: CIPRO AND DOXYCYCLINE. MEDICATIONS: At home: 1. Lisinopril. 2. [place]. 3. Zofran. 4. Pregabalin. 5. Prochlorperazine. 6. Valacyclovir. 7. Dicyclomine. 8. Alprazolam. 9. Dexamethasone. 10. Hydroxyzine. 11. Benzonatate. 12. Rosuvastatin. 13. Duloxetine. 14. Chemotherapy. PRESENT MEDICATIONS: 1. Proventil p.r.n. 2. Xanax p.r.n. 3. Tums p.r.n. 4. Cymbalta. 5. Folvite. 6. Motrin. 7. Morphine p.r.n. 8. Protonix p.r.n. 9. Lyrica p.r.n. 10. p.r.n. 11. Rosuvastatin p.r.n. 12. Normal saline at 125 an hour. 13. Valtrex p.r.n. 14. Synthroid p.r.n. PHYSICAL EXAMINATION: VITAL SIGNS: Temperature today 98.5, pulse 80, respirations 16, and blood pressure 115/69. GENERAL: She is resting in bed. HEENT: Oropharynx, no lesions or ulcers. Conjunctivae and sclerae clear. NECK: Supple without adenopathy. LUNGS: Clear. HEART: Regular rate and rhythm without clicks or murmurs. ABDOMEN: Soft. There are hernias noted. These are tender. There seems to be two of these. I can reduce both, I think. There is no acute guarding or rebound. The rest of the abdomen is mildly tender but not as tender as the hernia sites. Bowel sounds are quiescent. EXTREMITIES: No clubbing, cyanosis, or edema. LABORATORY DATA: Sodium 135, potassium 3.4, BUN and creatinine 11 and 0.6. Yesterday, her sodium was 135, BUN and creatinine were 13 and 0.7, glucose was 128. Liver function tests are normal. Lipase was 5. Urine on admission showed some urine protein of 50, no ketones. White count 15 yesterday, 11.7 today; platelet count 431; and hemoglobin 14.6. ASSESSMENT: Acute nausea, vomiting, and diarrhea. It is unclear if this is related to her carcinomatosis and cancer, her chemotherapy, or a viral infection. Viral infection is possible for this patient, but she has a lot of other things that can cause the same symptoms. She does not appear to be having incarcerated hernias, but she is most tender over those areas. RECOMMENDATIONS: 1. Recheck labs in the morning. 2. Would check stool studies for viral and bacterial infection. 3. We would consider involving Surgery in her case to evaluate her for the hernias and the possibility of obstruction related to these. We will follow along with you. Job ID: [id number]
[2019-09-08] MEDS: Pantoprazole 40 MG VIAL IVP SCH (09:33)
[2019-09-08] MEDS: Morphine 2 MG/ML SYRINGE SLOW IVP PRN ×2 (09:35→13:48)
[2019-09-08] MEDS: Pregabalin 75 MG CAP PO SCH ×2 (09:42→11:47)
[2019-09-08] MEDS: Prenatal Vitamin 1 TAB PO SCH ×2 (09:42→11:49)
[2019-09-08] MEDS: valACYclovir 500 MG TAB PO SCH ×2 (09:44→11:48)
[2019-09-08] MEDS: Thyroid 30 MG TAB PO SCH ×2 (09:44→11:45)
[2019-09-08] MEDS: Ondansetron PF 4 MG/2 ML Vial IVP PRN (09:46)
--- NOTE | 2019-09-08 10:03 | PDOC.MOPN ---
Interval History: tearful, having abdominal pain and nausea - Vital Signs Vital Signs: Vital Signs (12 hours) Temp Pulse Resp BP Pulse Ox 09/08/19 07:35 98.0 F 76 16 138/86 97 09/08/19 04:00 97.7 F 86 16 125/77 16 L 09/08/19 00:00 97.9 F 78 137/86 97 Weight Admit Weight 219 lb Weight 219 lb - Physical Exam General: Alert, Oriented x3, Moderate distress HEENT: Atraumatic, PERRLA, EOMI, Mucous membr. moist/pink Lungs: Clear to auscultation, Normal air movement Cardiovascular: Regular rate, Normal S1, Normal S2, No murmurs, Gallops, Rubs Abdomen: Other Extremities: No clubbing, No cyanosis, No edema, Normal pulses, No tenderness/ swelling Skin: No rashes, No breakdown, No significant lesion Neurological: Normal gait, Normal speech, Strength at 5/5 X4 ext, Normal tone, Sensation intact, Cranial nerves 3-12 NL, Reflexes 2+ - Labs Result Diagrams: 09/08/19 05:22 09/08/19 05:22 Lab results: Laboratory Results - last 24 hr 09/08/19 05:22: WBC 9.4, RBC 3.65 L, Hgb 12.5, Hct 36.8, MCV 101.0 H, MCH 34.3 H , MCHC 34.1, RDW 14.5, Plt Count 346, MPV 7.4, Neutrophils % 62.5, Lymphocytes % 20.4 L, Monocytes % 14.8 H, Eosinophils % 1.9, Basophils % 0.5, Neutrophils # 5.9, Lymphocytes # 1.9, Monocytes # 1.4 H, Eosinophils # 0.2, Basophils # 0.0 09/08/19 05:22: Sodium 137, Potassium 4.1, Chloride 105, Carbon Dioxide 26, Anion Gap 10, BUN 6 L, Creatinine 0.58 L, Estimated GFR (MDRD) Greater than 90 , Glucose 90, Calcium 8.0, Phosphorus 3.2, Magnesium 1.2 L Status: lab reviewed by me A/P - Problem (1) Enteritis Current Visit: Yes Code(s): K52.9 - NONINFECTIVE GASTROENTERITIS AND COLITIS, UNSPECIFIED Status: Acute (2) Partial small bowel obstruction Current Visit: Yes Status: Acute (3) Ovarian cancer Current Visit: Yes Status: Chronic - Plan Plan: Dr. Camarena consulted Morphine and Zofran for symptoms
--- NOTE | 2019-09-08 10:03 | PDOC.HOSPP ---
- Subjective Encounter Date: 09/08/19 Encounter Time: 16:00 Subjective: Patient had severe worsening of pain and nausea this AM. Surgery consulted. The symptoms have eased off a little this afternoon and she has been tolerating a little bit of oral fluids. No vomiting. Some liquid bowel movements. - Objective Vital Signs & Weight: Vital Signs (12 hours) Temp Pulse Resp BP Pulse Ox 09/08/19 07:35 98.0 F 76 16 138/86 97 09/08/19 04:00 97.7 F 86 16 125/77 16 L 09/08/19 00:00 97.9 F 78 137/86 97 Weight Admit Weight 219 lb Weight 219 lb I&O: 09/07/19 09/08/19 09/09/19 06:59 06:59 06:59 Intake Total 2445 1385 Output Total 280 Balance 2165 1385 Result Diagrams: 09/08/19 05:22 09/08/19 05:22 Hospitalist ROS - Review of Systems Constitutional: denies: fever, chills Respiratory: denies: cough, shortness of breath Cardiovascular: denies: chest pain, palpitations Gastrointestinal: reports: nausea, abdominal pain, diarrhea. denies: vomiting Genitourinary: denies: dysuria, hematuria - Medication Medications: Active Medications Generic Name Dose Route Start Last Admin Trade Name Freq PRN Reason Stop Dose Admin Calcium Carbonate 1,000 mg 09/06/19 12:12 09/06/19 19:18 Tums PO 1,000 mg Q4H PRN Administration Heartburn or Indigestion Dicyclomine HCl 10 mg 09/07/19 09:00 09/07/19 20:33 Bentyl PO 10 mg BID ARIADNE Administration Duloxetine HCl 60 mg 09/07/19 09:00 09/07/19 08:11 Cymbalta PO 60 mg DAILY ARIADNE Administration Folic Acid 0.5 mg 09/07/19 09:00 09/07/19 09:30 Folvite PO 0.5 mg DAILY ARIADNE Administration Sodium Chloride 1,000 mls @ 125 mls/hr 09/06/19 12:15 09/08/19 04:36 Normal Saline 0.9% IV 1,000 mls .Q8H ARIADNE Administration Lisinopril 10 mg 09/07/19 09:00 09/07/19 08:10 Zestril PO 10 mg DAILY ARIANDE Administration Morphine Sulfate 2 mg 09/06/19 12:12 09/08/19 09:35 Morphine SLOW IVP 2 mg Q4H PRN Administration Moderate to Severe Pain (6-10) Ondansetron HCl 4 mg 09/06/19 12:12 09/08/19 09:46 Zofran IVP 4 mg Q6H PRN Administration Nausea/Vomiting Pantoprazole Sodium 40 mg 09/07/19 09:00 09/08/19 09:33 Protonix IVP 40 mg DAILY ARIADNE Administration Pregabalin 75 mg 09/07/19 09:00 09/08/19 09:42 Lyrica PO Not Given DAILY [facility] Multivit/Folic Acid/Iron 1 tab 09/07/19 09:00 09/08/19 09:42 Vitamin PO Not Given DAILY [facility] Rosuvastatin Calcium 5 mg 09/07/19 09:00 09/07/19 09:30 Crestor PO 5 mg DAILY ARIADNE Administration Sodium Chloride 10 ml 09/07/19 09:00 09/08/19 09:44 Flush - Normal Saline IVF 10 ml Q12HR ARIADNE Administration Thyroid 45 mg 09/07/19 09:00 09/08/19 09:44 [place] Thyroid PO Not Given DAILY [facility] Valacyclovir HCl 1,000 mg 09/07/19 09:00 09/08/19 09:44 Valtrex PO Not Given DAILY [facility] - Exam General Appearance: NAD, awake alert ENT: moist mucosa Heart: RRR, no murmur, no gallops, no rubs Respiratory: CTAB, no wheezes, no rales, no ronchi Gastrointestinal: soft, non-distended, normal bowel sounds, no guarding, no rigidity, tender to palpation Psychiatric: normal affect, normal behavior, A&O x 3 Hosp A/P (1) Enteritis Code(s): K52.9 - NONINFECTIVE GASTROENTERITIS AND COLITIS, UNSPECIFIED Status : Acute (2) Partial small bowel obstruction Status: Acute (3) Leukocytosis Code(s): D72.829 - ELEVATED WHITE BLOOD CELL COUNT, UNSPECIFIED Status: Acute (4) Ovarian cancer Status: Chronic (5) Liver lesion, right lobe Code(s): K76.9 - LIVER DISEASE, UNSPECIFIED Status: Chronic (6) HTN (hypertension) Code(s): I10 - ESSENTIAL (PRIMARY) HYPERTENSION Status: Acute (7) Hypothyroidism Code(s): E03.9 - HYPOTHYROIDISM, UNSPECIFIED Status: Acute - Plan Continued abdominal pain, nausea, vomiting. Appreciate Dr. Hugo rodríguez. General Surgery consulted. Discussing case with GI and Heme/Onc. Patient may need evaluation by a specialist if she requires surgery. Hopefully this is due to an infectious GE that will calm down over the next few days. Heme/Onc holding on chemo until next week after this resolves.
[2019-09-08] MEDS: Rosuvastatin 5 MG TAB PO SCH (11:42)
[2019-09-08] MEDS: Dicyclomine 10 MG CAP PO SCH ×2 (11:42→20:31)
[2019-09-08] MEDS: Folic Acid 1 MG TAB PO SCH (11:42)
[2019-09-08] MEDS: DULoxetine 60 MG CAP PO SCH (11:47)
[2019-09-08] MEDS: Lisinopril 10 MG TAB PO SCH (11:48)
--- NOTE | 2019-09-08 15:38 | PRG ---
DATE OF SERVICE: 09/08/2019 SUBJECTIVE: Ms. Mosley feels about the same. Still some cramping pain around the mid abdominal hernia, though she has had no vomiting. She is tolerating a little water. She had diarrhea several times, watery. MEDICATIONS: 1. Tylenol. 2. Proventil. 3. Xanax. 4. Tums. 5. Bentyl. 6. Cymbalta. 7. Folvite. 8. Zestril. 9. Morphine. 10. Zofran. 11. vitamin. 12. . OBJECTIVE: VITAL SIGNS: Temperature is 98.7, afebrile, pulse 75, and blood pressure is 155/92. ABDOMEN: Soft. There is an umbilical hernia and lower abdominal hernia. There is a little bit of tenderness to palpation. Most of this, I can reduce. Bowel sounds are present, but quiet. There is no rebound. There is no guarding. LABORATORY DATA: White count is 9.4, down from 15.1 on the 10th, hemoglobin 12.5, platelet count 346. Sodium 137, potassium 4.1, BUN and creatinine are 6 and 0.5, calcium is 8, phosphorus 3.2, magnesium is 1.2. Stool ova and parasite rapid screen negative. Culture pending. Campylobacter negative. ASSESSMENT: 1. Acute onset of nausea, vomiting, diarrhea. It is unclear if this is infectious gastritis or if this is somewhat related to her malignancy. She has known carcinomatosis. 2. Abdominal hernias. There are definitely hernias present. I agree with Dr. Camarena. I have discussed the case with, but there is some thickening of the bowel loops. Both loops proximal to and distal to the loops of bowel that are in the hernias. There does not seem to be any overt necrosis or ischemia, and for the most part, the bowels will be able to be reduced from the hernia. Also, there has been notation that there was thickening of these loops in the ileum area when the patient had surgery for appendicitis, which really at that time should be metastatic ovarian malignancy. Above changes likely have been chronic and are probably related to carcinomatosis. RECOMMENDATIONS: 1. Dr. Das is going to talk with the patient's RN RADIATION-ONC surgeon in the [facility]. 2. If the patient improves, this may have just been routine gastritis or drug effect from her chemo when she can go back on the chemo. If the patient does not improve or worsens, she may have to have a surgery with that happens here or with her gynecologic oncologist is being determined by her oncologist and surgeon at this time. Job ID: [id number]
--- NOTE | 2019-09-08 21:18 | CON ---
DATE OF CONSULTATION: 09/08/2019 REASON FOR CONSULTATION: Partial small bowel obstruction, nausea, vomiting, abdominal pain, and need for MediPort. HISTORY OF PRESENT ILLNESS: Ms. Mosley is a 49-year-old woman with stage IV ovarian cancer, who is on 4th line chemotherapy. She presented to the emergency room with a history of abdominal pain since Friday with vomiting since Friday. She has had loose stools throughout the course of her illness and crampy abdominal pain, which is diffuse. She has no fevers or chills and does not report any unusual ingestions or ill contacts. She has not had any blood in her stool or in her emesis. Her symptoms are somewhat better since going on bowel rest in the hospital, but have not resolved. She was feeling better this morning, but then when the pain started to come back, there was a delay in obtaining her pain medication and when I saw her around lunchtime she was quite uncomfortable. She states that she has had not been nauseated at all until the pain got bad, but when I saw her, she was a little nauseated. She states that she has had 4 liquid bowel movements today and has been passing gas, but does not feel that she evacuates completely. PAST MEDICAL HISTORY: Metastatic ovarian cancer, hypertension, and hypothyroidism. PAST SURGICAL HISTORY: REGINE/BSO and debulking operation for her ovarian cancer. She has also undergone MediPort placement and had an appendectomy back in March for an abnormal appearing appendix, which on pathology returned as metastatic carcinoma. Her Medi-Port is no longer functioning. FAMILY HISTORY: Triple-negative breast cancer in her mother. SOCIAL HISTORY: The patient does smoke. Does not drink to excess or use any drugs. She lives with her mother who is also on palliative chemotherapy. REVIEW OF SYSTEMS: Ten system review of systems is negative except per HPI. OUTPATIENT MEDICATIONS: Include: 1. Omeprazole. 2. Albuterol inhaler. 3. Alprazolam. 4. Calcium carbonate. 5. Bentyl. 6. Duloxetine. 7. Folate. 8. Ibuprofen. 9. Lisinopril. 10. Ondansetron. 11. vitamin. 12. Lyrica. 13. Crestor. 14. [place] Thyroid. 15. Valacyclovir. INPATIENT MEDICATIONS: Include her home medications as well as p.r.n. morphine and Zofran. She is now on IV Protonix. ALLERGIES: SHE REPORTS ALLERGIES TO CIPROFLOXACIN AND DOXYCYCLINE. PHYSICAL EXAMINATION: VITAL SIGNS: The patient is afebrile. Heart rate in the 70s, blood pressure normal to moderately elevated and normal room air sats. GENERAL: Reveals a pleasant woman, in no acute distress, who is uncomfortable with the abdominal exam only. She is not flushed or toxic, jaundiced or icteric. HEENT: Unremarkable. NECK: Supple without adenopathy or thyroid nodules. HEART: Regular in its rate and rhythm without murmurs, rubs, or gallops. LUNGS: Clear to auscultation anteriorly, although she has some scattered crackles in the bases. ABDOMEN: Soft and diffusely tender to palpation. She has palpable hernias. It is difficult to determine whether these are reducible due to her pain with examination and her abdominal obesity, but there are no hard incarcerated hernias palpated. She does not exhibit rigidity, rebound or guarding. EXTREMITIES: Warm, well perfused without edema. NEUROLOGIC: No focal deficits. PSYCHIATRIC: Alert, oriented and appropriate. IMAGING: CT images from this admission are reviewed and I agree with the written report. The patient does have a caliber change between the small bowel entering the lower hernia and the bowel exiting it. However, the bowel wall is thickened both proximal and distal to this hernia. On review of the old CT images, this hernia has been present and has contained a loop of small intestine since last year at least and has never been obstructing before. However, she had some imaging in July , which showed abnormal thickening of the small bowel distal to this hernia and at that point, the bowel proximal to the hernia was starting to dilate, although there was no thickening of the bowel at that time. The patient actually has 2 abdominal wall hernias. The upper one contains colon and the lower one contains a loop of small intestine. LABORATORY DATA: White count was initially slightly elevated, but has come down to normal. Hematocrit is 36 and platelets are 346. Electrolytes are unremarkable. LFTs are unremarkable. Urine is clear. ASSESSMENT: I was able to discuss the patient's case with Dr. Das at Cancer conference. I expressed concern that she had abnormal bowel thickening back in July and that this seems to have extended proximally and is involving more of the bowel now. This to me does not seem to be consistent with an infectious process and I am concerned that it is related to her malignancy. I questioned whether this could be a response to chemotherapy, but Dr. Das explained that the patient had been off chemotherapy for about 4 months and only got her first dose a little over a week ago, having not received any since about the time of her appendectomy. On further discussion with Dr. Das, I discussed my concern that this could be metastatic involvement of the bowel and she shares my concern. Certainly the hernia could be causing more of a partial obstruction since the bowel wall has become thickened, but the patient is not completely obstructed and I don't know how much the symptoms would improve with reduction of this and repair of the hernia at this time. I am also concerned about using mesh in the setting of carcinomatosis since mesh is designed for tissue ingrowth and this could create a protected environment for disease. I am hesitant to proceed with hernia repair in this setting since I am not sure how much it will help the patient. Certainly at a tertiary center, we would involve Gynecologic Oncology at least to examine the patient intraoperatively and it would be very reasonable to transfer her to a tertiary care center where that option is available. If this is metastatic involvement of the small intestine, it seems to be extending proximally along the bowel and the patient's prognosis is extremely poor unless she has a fairly rapid response to chemotherapy. Dr. Dsa is going to discuss the patient's case with her Gynecologic Oncologist who last saw the patient in April and consider transfer to a tertiary care facility. If the patient does not improve, then repair of the hernia for palliation could be considered, but I am not sure how much benefit the patient would receive from this. If she does go to the operating room for hernia repair then certainly another MediPort could be placed under the same anesthesia. Unfortunately, the patient's prognosis is very poor and palliation may be difficult with progression of disease in the small intestine. Job ID: [id number] [facility]
[2019-09-08] MEDS: Polyethylene Glycol OPTH DROP 15 ML BOT EA EYE PRN (23:26)
[2019-09-09] MEDS: Sodium Chloride 0.9% 1,000 ML IV SCH ×3 (04:31→20:35)
[2019-09-09] MEDS: Prenatal Vitamin 1 TAB PO SCH (08:35)
[2019-09-09] MEDS: valACYclovir 500 MG TAB PO SCH (08:36)
[2019-09-09] MEDS: Rosuvastatin 5 MG TAB PO SCH (08:36)
[2019-09-09] MEDS: Thyroid 30 MG TAB PO SCH (08:36)
[2019-09-09] MEDS: Pantoprazole 40 MG VIAL IVP SCH (08:36)
[2019-09-09] MEDS: Pregabalin 75 MG CAP PO SCH (08:37)
[2019-09-09] MEDS: Dicyclomine 10 MG CAP PO SCH ×2 (08:37→20:35)
[2019-09-09] MEDS: DULoxetine 60 MG CAP PO SCH (08:37)
[2019-09-09] MEDS: Folic Acid 1 MG TAB PO SCH (08:38)
[2019-09-09] MEDS: Lisinopril 10 MG TAB PO SCH (08:38)
[2019-09-09] MEDS: Polyethylene Glycol OPTH DROP 15 ML BOT EA EYE PRN ×2 (08:41→20:36)
[2019-09-09] MEDS: Ondansetron PF 4 MG/2 ML Vial IVP PRN (08:43)
--- NOTE | 2019-09-09 08:49 | PDOC.HOSPP ---
- Subjective Encounter Date: 09/09/19 Encounter Time: 13:00 Subjective: Patient a little better today. Tolerating some liquids by mouth without nausea or vomiting. Pain in abdomen improved and she is trying to avoid further morphine injections. Did have a couple more watery stools this AM. Transfer on hold for now due to clinical improvement. - Objective Vital Signs & Weight: Vital Signs (12 hours) Temp Pulse Resp BP BP Pulse Ox 09/09/19 08:38 142/89 H 09/09/19 07:40 98.6 F 83 16 142/89 H 97 09/09/19 00:00 98.4 F 83 16 120/80 95 Weight Admit Weight 219 lb Weight 219 lb I&O: 09/08/19 09/09/19 09/10/19 06:59 06:59 06:59 Intake Total 1385 3305 Balance 1385 3305 Result Diagrams: 09/08/19 05:22 09/08/19 05:22 Hospitalist ROS - Review of Systems Constitutional: denies: fever, chills Respiratory: denies: cough, shortness of breath Cardiovascular: denies: chest pain, palpitations, orthopnea Gastrointestinal: reports: abdominal pain, diarrhea. denies: nausea, vomiting Genitourinary: denies: dysuria, hematuria - Medication Medications: Active Medications Generic Name Dose Route Start Last Admin Trade Name Freq PRN Reason Stop Dose Admin Calcium Carbonate 1,000 mg 09/06/19 12:12 09/06/19 19:18 Tums PO 1,000 mg Q4H PRN Administration Heartburn or Indigestion Dicyclomine HCl 10 mg 09/07/19 09:00 09/09/19 08:37 Bentyl PO 10 mg BID ARIADNE Administration Duloxetine HCl 60 mg 09/07/19 09:00 09/09/19 08:37 Cymbalta PO 60 mg DAILY ARIADNE Administration Folic Acid 0.5 mg 09/07/19 09:00 09/09/19 08:38 Folvite PO 0.5 mg DAILY ARIADNE Administration Sodium Chloride 1,000 mls @ 125 mls/hr 09/06/19 12:15 09/09/19 04:31 Normal Saline 0.9% IV 1,000 mls .Q8H ARIADNE Administration Lisinopril 10 mg 09/07/19 09:00 09/09/19 08:38 Zestril PO 10 mg DAILY ARIADNE Administration Morphine Sulfate 2 mg 09/06/19 12:12 09/08/19 13:48 Morphine SLOW IVP 2 mg Q4H PRN Administration Moderate to Severe Pain (6-10) Ondansetron HCl 4 mg 09/06/19 12:12 09/09/19 08:43 Zofran IVP 4 mg Q6H PRN Administration Nausea/Vomiting Pantoprazole Sodium 40 mg 09/07/19 09:00 09/09/19 08:36 Protonix IVP 40 mg DAILY ARIADNE Administration Pregabalin 75 mg 09/07/19 09:00 09/09/19 08:37 Lyrica PO 75 mg DAILY ARIADNE Administration Multivit/Folic Acid/Iron 1 tab 09/07/19 09:00 09/09/19 08:35 Vitamin PO 1 tab DAILY ARIADNE Administration Propylene Glycol 2 drop 09/08/19 00:31 09/09/19 08:41 Systane Opth Drop 15ml Bot EA EYE 2 drop Q4H PRN Administration Dry Eyes Rosuvastatin Calcium 5 mg 09/07/19 09:00 09/09/19 08:36 Crestor PO 5 mg DAILY ARIADNE Administration Sodium Chloride 10 ml 09/07/19 09:00 09/09/19 08:39 Flush - Normal Saline IVF 10 ml Q12HR ARIADNE Administration Thyroid 45 mg 09/07/19 09:00 09/09/19 08:36 [place] Thyroid PO 45 mg DAILY ARIADNE Administration Valacyclovir HCl 1,000 mg 09/07/19 09:00 09/09/19 08:36 Valtrex PO 1,000 mg DAILY ARIADNE Administration - Exam General Appearance: NAD, awake alert ENT: moist mucosa Heart: RRR, no murmur, no gallops, no rubs Respiratory: CTAB, no wheezes, no rales, no ronchi Gastrointestinal: soft, non-distended, normal bowel sounds, no guarding, no rigidity Gastrointestinal - other findings: mild TTP Psychiatric: normal affect, normal behavior, A&O x 3 Hosp A/P (1) Enteritis Code(s): K52.9 - NONINFECTIVE GASTROENTERITIS AND COLITIS, UNSPECIFIED Status : Acute (2) Partial small bowel obstruction Status: Acute (3) Leukocytosis Code(s): D72.829 - ELEVATED WHITE BLOOD CELL COUNT, UNSPECIFIED Status: Resolved (4) Ovarian cancer Status: Chronic (5) Liver lesion, right lobe Code(s): K76.9 - LIVER DISEASE, UNSPECIFIED Status: Chronic (6) HTN (hypertension) Code(s): I10 - ESSENTIAL (PRIMARY) HYPERTENSION Status: Acute (7) Hypothyroidism Code(s): E03.9 - HYPOTHYROIDISM, UNSPECIFIED Status: Acute - Plan Spoke with Dr. Das. She is hoping that this will resolve by itself and not require surgery. If surgery is required she asks that we please notify her immediately and that she would recommend transfer to patient's [employer] Tutor/Onc surgeon instead of surgery here. Transfer was set up but is on hold due to clinical improvement. If continues to improve can likely go home tomorrow.
--- NOTE | 2019-09-09 09:07 | PDOC.MOPN ---
Interval History: pain better, more diarrhea today - Vital Signs Vital Signs: Vital Signs (12 hours) Temp Pulse Resp BP BP Pulse Ox 09/09/19 08:38 142/89 H 09/09/19 07:40 98.6 F 83 16 142/89 H 97 09/09/19 00:00 98.4 F 83 16 120/80 95 Weight Admit Weight 219 lb Weight 219 lb - Physical Exam General: Alert, Oriented x3, No acute distress HEENT: Atraumatic, PERRLA, EOMI, Mucous membr. moist/pink Lungs: Clear to auscultation, Normal air movement Cardiovascular: Regular rate, Normal S1, Normal S2, No murmurs, Gallops, Rubs Abdomen: Other (tender) Extremities: No clubbing, No cyanosis, No edema, Normal pulses, No tenderness/ swelling Skin: No rashes, No breakdown, No significant lesion Neurological: Normal gait, Normal speech, Strength at 5/5 X4 ext, Normal tone, Sensation intact, Cranial nerves 3-12 NL, Reflexes 2+ Psych/Mental Status: Mental status NL, Mood NL - Labs Result Diagrams: 09/08/19 05:22 09/08/19 05:22 Status: lab reviewed by me A/P - Problem (1) Enteritis Current Visit: Yes Code(s): K52.9 - NONINFECTIVE GASTROENTERITIS AND COLITIS, UNSPECIFIED Status: Acute (2) Partial small bowel obstruction Current Visit: Yes Status: Acute (3) Ovarian cancer Current Visit: Yes Status: Chronic - Plan Plan: discussed with Migue Mccoy and Hugo will attempt to transfer patient to Dr. Camacho, [employer] Onc Surgeon at [facility] in [facility] Continue pain medication and supportive care.
--- NOTE | 2019-09-09 11:36 | PDOC.GSPN ---
Surgery Progress Note: Subj - Subjective Narrative: Patient is actually feeling a little better today. Her pain is better although she is still having a lot of diarrhea. She is tolerating clear liquids without nausea or vomiting. I had a long discussion with her about the findings on her old CAT scans and her concerns and the patient is in agreement with transfer to a tertiary care facility. I have asked the nurse to get all of her old CTs copied onto a CD for her to take with her. I will continue to follow her while she is in our facility. Surgery Progress Note: Obj - Vital signs Vital signs: Vital Signs - Most Recent Temp Pulse Resp BP Pulse Ox 98.6 F 83 16 142/89 H 97 09/09/19 07:40 09/09/19 07:40 09/09/19 07:40 09/09/19 08:38 09/09/19 07:40 Surgery Progress Note: Results - Labs Result Diagrams: 09/08/19 05:22 09/08/19 05:22
--- NOTE | 2019-09-09 19:02 | PRG ---
DATE OF SERVICE: 09/09/2019 SUBJECTIVE: Ms. Mosley still has some abdominal discomfort. She is tolerating full liquids. She wonders if she can have a little bit more to eat. She is still having a lot of diarrhea. Her pain is better. OBJECTIVE: VITAL SIGNS: Temperature is 98, pulse 92, blood pressure 142/89. ABDOMEN: Soft. There are some hernias. These are noted on previous exams. They are somewhat reducible. They are tender. EXTREMITIES: Reveals no clubbing, cyanosis, or edema. LABORATORY DATA: Labs: None today. Microbiology: Stool culture, negative. Campylobacter, negative. Ova and parasite, negative. ASSESSMENT AND PLAN: 1. Diarrhea persists. We will check a Clostridium difficile toxin as this has not been checked. I will advance her to a low-residue lactose-free diet. 2. It seems that Oncology decided not to transfer her today. We will advance her diet and see if she does better. I think ultimately, her diarrhea may improve and that may have all been a gastroenteritis; however, I suspect that the CT scan changes are related to progression of her malignancy and carcinomatosis. Job ID: [id number]
[2019-09-10] MEDS ORDERED: Vancomycin HCl 25 MG/ML Oral PO SCH (00:45)
[2019-09-10] MEDS: Sodium Chloride 0.9% 1,000 ML IV SCH ×3 (05:21→22:26)
[2019-09-10] MEDS: Vancomycin HCl 25 MG/ML Oral PO SCH ×3 (06:02→17:56)
[2019-09-10 06:13] LABS: ALT (SGPT) 12 U/L (8-55); AST (SGOT) 13 U/L (5-34); Albumin 2.8 g/dL (3.5-5.0); Alkaline Phosphatase 71 U/L (40-110); Anion Gap 10 mmol/L (10-20); BUN (Urea Nitrogen) Less than 4 mg/dL (7.0-18.7); Bilirubin, Total 0.8 mg/dL (0.2-1.2); Calc. Creatinine Clearance 191 mL/min (70-130); Calcium 8.1 mg/dL (7.8-10.44); Carbon Dioxide 29 mmol/L (22-29); Chloride 106 mmol/L (98-107); Estimated GFR-MDRD Greater than 90; Globulin 2.3 g/dL (2.4-3.5); Glucose 105 mg/dL (70-105); Magnesium 1.2 mg/dL (1.6-2.6); Phosphorus 3.2 mg/dL (2.3-4.7); Protein, Total 5.1 g/dL (6.0-8.3); Sodium 141 mmol/L (136-145)
[2019-09-10] MEDS: Dicyclomine 10 MG CAP PO SCH ×2 (08:19→22:26)
[2019-09-10] MEDS: Lisinopril 10 MG TAB PO SCH (08:19)
[2019-09-10] MEDS: Prenatal Vitamin 1 TAB PO SCH (08:19)
[2019-09-10] MEDS: Rosuvastatin 5 MG TAB PO SCH (08:19)
[2019-09-10] MEDS: DULoxetine 60 MG CAP PO SCH (08:19)
[2019-09-10] MEDS: Folic Acid 1 MG TAB PO SCH (08:19)
[2019-09-10] MEDS: valACYclovir 500 MG TAB PO SCH (08:19)
[2019-09-10] MEDS: Thyroid 30 MG TAB PO SCH (08:20)
[2019-09-10] MEDS: Pregabalin 75 MG CAP PO SCH (08:20)
--- NOTE | 2019-09-10 08:21 | PDOC.MOPN ---
Interval History: no nausea. Frequent diarrhea. Abdominal soreness but no pain. - Vital Signs Vital Signs: Vital Signs (12 hours) Temp Pulse Resp BP Pulse Ox 09/10/19 08:00 98.5 F 81 18 128/79 97 Weight Admit Weight 219 lb Weight 219 lb - Physical Exam General: Alert, Oriented x3, No acute distress HEENT: Atraumatic, PERRLA, EOMI, Mucous membr. moist/pink Lungs: Clear to auscultation, Normal air movement Cardiovascular: Regular rate, Normal S1, Normal S2, No murmurs, Gallops, Rubs Abdomen: Normal bowel sounds, Soft, No tenderness, No hepatospenomegaly, No masses Extremities: No clubbing, No cyanosis, No edema, Normal pulses, No tenderness/ swelling Skin: No rashes, No breakdown, No significant lesion Neurological: Normal gait, Normal speech, Strength at 5/5 X4 ext, Normal tone, Sensation intact, Cranial nerves 3-12 NL, Reflexes 2+ Psych/Mental Status: Mental status NL, Mood NL - Labs Result Diagrams: 09/08/19 05:22 09/10/19 05:24 Lab results: Laboratory Results - last 24 hr 09/10/19 05:24: Sodium 141, Potassium 4.0, Chloride 106, Carbon Dioxide 29, Anion Gap 10, BUN Less than 4 L, Creatinine 0.56 L, Estimated GFR (MDRD) Greater than 90, Glucose 105, Calcium 8.1, Phosphorus 3.2, Magnesium 1.2 L, Total Bilirubin 0.8, AST 13, ALT 12, Alkaline Phosphatase 71, Serum Total Protein 5.1 L, Albumin 2.8 L, Globulin 2.3 L, Albumin/Globulin Ratio 1.2 Status: lab reviewed by me A/P - Problem (1) Enteritis Current Visit: Yes Code(s): K52.9 - NONINFECTIVE GASTROENTERITIS AND COLITIS, UNSPECIFIED Status: Acute (2) Partial small bowel obstruction Current Visit: Yes Status: Acute (3) Ovarian cancer Current Visit: Yes Status: Chronic (4) C. difficile colitis Current Visit: Yes Code(s): A04.72 - ENTEROCOLITIS D/T CLOSTRIDIUM DIFFICILE, NOT SPCF RECUR Status: Acute - Plan Plan: continue abx for c. diff tolerating diet cancel transfer to Dr. Camacho appreciate Surgical and GI assistance
[2019-09-10] MEDS: Polyethylene Glycol OPTH DROP 15 ML BOT EA EYE PRN (08:23)
[2019-09-10] MEDS: Morphine 2 MG/ML SYRINGE SLOW IVP PRN (12:35)
--- NOTE | 2019-09-10 16:41 | PDOC.HOSPP ---
- Subjective Encounter Date: 09/10/19 Encounter Time: 12:30 Subjective: pt up in bed no complains - Objective Vital Signs & Weight: Vital Signs (12 hours) Temp Pulse Resp BP BP Pulse Ox 09/10/19 08:19 128/79 09/10/19 08:16 97 09/10/19 08:00 98.5 F 81 18 128/79 97 Weight Admit Weight 219 lb Weight 219 lb I&O: 09/09/19 09/10/19 09/11/19 06:59 06:59 06:59 Intake Total 3305 1860 Balance 3305 1860 Result Diagrams: 09/08/19 05:22 09/10/19 05:24 Hospitalist ROS - Review of Systems Cardiovascular: denies: chest pain, palpitations, orthopnea, paroxysmal noc. dyspnea, edema, light headedness, other Gastrointestinal: denies: nausea, vomiting, abdominal pain, diarrhea, constipation, melena, hematochezia, other Genitourinary: denies: dysuria, frequency, incontinence, hematuria, retention, other Musculoskeletal: denies: neck pain, shoulder pain, arm pain, back pain, hand pain, leg pain, foot pain, other - Medication Medications: Active Medications Generic Name Dose Route Start Last Admin Trade Name Freq PRN Reason Stop Dose Admin Calcium Carbonate 1,000 mg 09/06/19 12:12 09/06/19 19:18 Tums PO 1,000 mg Q4H PRN Administration Heartburn or Indigestion Dicyclomine HCl 10 mg 09/07/19 09:00 09/10/19 08:19 Bentyl PO 10 mg BID ARIADNE Administration Duloxetine HCl 60 mg 09/07/19 09:00 09/10/19 08:19 Cymbalta PO 60 mg DAILY ARIADEN Administration Folic Acid 0.5 mg 09/07/19 09:00 09/10/19 08:19 Folvite PO 0.5 mg DAILY ARIADNE Administration Sodium Chloride 1,000 mls @ 125 mls/hr 09/06/19 12:15 09/10/19 11:56 Normal Saline 0.9% IV 1,000 mls .Q8H ARIADNE Administration Lisinopril 10 mg 09/07/19 09:00 09/10/19 08:19 Zestril PO 10 mg DAILY ARIADNE Administration Morphine Sulfate 2 mg 09/06/19 12:12 09/10/19 12:35 Morphine SLOW IVP 2 mg Q4H PRN Administration Moderate to Severe Pain (6-10) Ondansetron HCl 4 mg 09/06/19 12:12 09/09/19 08:43 Zofran IVP 4 mg Q6H PRN Administration Nausea/Vomiting Pantoprazole Sodium 40 mg 09/09/19 09:00 09/10/19 08:19 Protonix PO 40 mg DAILY ARIADNE Administration Pregabalin 75 mg 09/07/19 09:00 09/10/19 08:20 Lyrica PO 75 mg DAILY ARIADNE Administration Multivit/Folic Acid/Iron 1 tab 09/07/19 09:00 09/10/19 08:19 Vitamin PO 1 tab DAILY ARIADNE Administration Propylene Glycol 2 drop 09/08/19 00:31 09/10/19 08:23 Systane Opth Drop 15ml Bot EA EYE 2 drop Q4H PRN Administration Dry Eyes Rosuvastatin Calcium 5 mg 09/07/19 09:00 09/10/19 08:19 Crestor PO 5 mg DAILY ARIADNE Administration Sodium Chloride 10 ml 09/07/19 09:00 09/10/19 08:23 Flush - Normal Saline IVF Not Given Q12HR ARIADNE Thyroid 45 mg 09/07/19 09:00 09/10/19 08:20 [place] Thyroid PO 45 mg DAILY ARIADNE Administration Valacyclovir HCl 1,000 mg 09/07/19 09:00 09/10/19 08:19 Valtrex PO 1,000 mg DAILY ARIADNE Administration Vancomycin HCl 125 mg 09/10/19 06:00 09/10/19 11:55 First Vancomycin PO 125 mg Q6HR ARIADNE Administration - Exam Neck: negative: supple, symmetric, no JVD, no thyromegaly, no lymphadenopathy, no carotid bruit, JVD Heart: negative: RRR, no murmur, no gallops, no rubs, normal peripheral pulses, irregular, diminshed peripheral pulses, murmur present, II/IV, III/IV Respiratory: negative: CTAB, no wheezes, no rales, no ronchi, normal chest expansion, no tachypnea, normal percussion, rales, rhonchi, tachypneic, wheezes Gastrointestinal: negative: soft, non-tender, non-distended, normal bowel sounds , no palpable masses, no hepatomegaly, no splenomegaly, no bruit, no guarding, no rigidity, tender to palpation, distended, diminished bowl sounds, voluntary guarding Hosp A/P (1) C. difficile colitis Code(s): A04.72 - ENTEROCOLITIS D/T CLOSTRIDIUM DIFFICILE, NOT SPCF RECUR Status: Acute (2) Enteritis Code(s): K52.9 - NONINFECTIVE GASTROENTERITIS AND COLITIS, UNSPECIFIED Status : Acute (3) Hypothyroidism Code(s): E03.9 - HYPOTHYROIDISM, UNSPECIFIED Status: Acute (4) Partial small bowel obstruction Status: Acute (5) Ovarian cancer Status: Chronic (6) Leukocytosis Code(s): D72.829 - ELEVATED WHITE BLOOD CELL COUNT, UNSPECIFIED Status: Resolved - Plan will add norco for prn pain. she is tolerating her current diet. she did not have diarrhea today.
--- NOTE | 2019-09-10 17:03 | PDOC.GSPN ---
Surgery Progress Note: Subj - Subjective Narrative: Patient feels better today. She is tolerating a low fiber diet and had some fish and potatoes last night and Mexican bread sticks this morning. She is sore but not having severe pain and is passing gas and having liquid bowel movements. No nausea or vomiting. C. difficile was positive and is being treated. Abdomen is soft and nondistended. 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 Assessment/plan: Patient with chronic abdominal hernias containing bowel, not previously obstructing but may be contributing to symptoms now that her bowel wall looks thickened. It is unclear why the bowel wall is thickened but since this appears to have been present since July there is concern for metastatic involvement of the bowel. No urgent indication for surgical intervention at this time. If the patient continues to tolerate her diet and can be discharged home I highly recommend that she follow-up with her gynecologic oncologist to see if repair of the hernia and examination of the abdomen should be done. If she clinically worsens then inpatient transfer should be considered. She will need a functioning Mediport for resumption of chemotherapy so I will schedule that as an outpatient for next week assuming that she is discharged home. I'm going to sign off for now but will see her as an inpatient if she is still here next week. Surgery Progress Note: Obj - Vital signs Vital signs: Vital Signs - Most Recent Temp Pulse Resp BP Pulse Ox 98.5 F 81 18 128/79 97 09/10/19 08:00 09/10/19 08:00 09/10/19 08:00 09/10/19 08:19 09/10/19 08:16 Surgery Progress Note: Results - Labs Result Diagrams: 09/08/19 05:22 09/10/19 05:24 Lab results: Laboratory Results - last 24 hr 09/10/19 05:24 Sodium 141 Potassium 4.0 Chloride 106 Carbon Dioxide 29 Anion Gap 10 BUN Less than 4 L Creatinine 0.56 L Estimated GFR (MDRD) Greater than 90 Glucose 105 Calcium 8.1 Phosphorus 3.2 Magnesium 1.2 L Total Bilirubin 0.8 AST 13 ALT 12 Alkaline Phosphatase 71 Serum Total Protein 5.1 L Albumin 2.8 L Globulin 2.3 L Albumin/Globulin Ratio 1.2
[2019-09-11] MEDS: Vancomycin HCl 25 MG/ML Oral PO SCH ×4 (00:51→16:57)
[2019-09-11] MEDS: Sodium Chloride 0.9% 1,000 ML IV SCH ×2 (04:33→08:42)
[2019-09-11 05:59] LABS: Anion Gap 9 mmol/L (10-20); BUN (Urea Nitrogen) Less than 4 mg/dL (7.0-18.7); Calc. Creatinine Clearance 198 mL/min (70-130); Calcium 7.9 mg/dL (7.8-10.44); Carbon Dioxide 29 mmol/L (22-29); Chloride 107 mmol/L (98-107); Estimated GFR-MDRD Greater than 90; Glucose 106 mg/dL (70-105); Magnesium 1.1 mg/dL (1.6-2.6); Potassium 3.2 mmol/L (3.5-5.1); Sodium 142 mmol/L (136-145)
[2019-09-11] MEDS: Dicyclomine 10 MG CAP PO SCH ×2 (08:30→19:50)
[2019-09-11] MEDS: DULoxetine 60 MG CAP PO SCH (08:31)
[2019-09-11] MEDS: Thyroid 30 MG TAB PO SCH (08:31)
[2019-09-11] MEDS: Lisinopril 10 MG TAB PO SCH (08:31)
[2019-09-11] MEDS: valACYclovir 500 MG TAB PO SCH (08:32)
[2019-09-11] MEDS: Rosuvastatin 5 MG TAB PO SCH (08:33)
[2019-09-11] MEDS: Folic Acid 1 MG TAB PO SCH (08:33)
[2019-09-11] MEDS: Pregabalin 75 MG CAP PO SCH (08:33)
[2019-09-11] MEDS: Polyethylene Glycol OPTH DROP 15 ML BOT EA EYE PRN (08:34)
--- NOTE | 2019-09-11 10:06 | PRG ---
DATE OF SERVICE: 09/10/2019 SUBJECTIVE: Ms. Mosley states she had some abdominal pain this morning, had to get 2 of morphine. She is still having watery diarrhea. She is tolerating soft diet, lactose-free. She states that Dr. Camarena was concerned about the tenderness around her upper abdominal hernia. OBJECTIVE: VITAL SIGNS: Temperature is 98.5, pulse 81, blood pressure 120/79. LUNGS: Clear. HEART: Regular rhythm without clicks or murmurs. ABDOMEN: Soft, nontender, and nondistended. EXTREMITIES: No clubbing, cyanosis, or edema. LABORATORY DATA: No CBC today. Electrolytes; sodium 141, potassium 4, BUN and creatinine 4 and 0.5, albumin 2.8. Clostridium difficile toxin came back positive, and she has been started on vancomycin. ASSESSMENT: 1. Stage IV ovarian cancer with carcinomatosis. 2. Admitted with nausea, vomiting, and diarrhea. It is unclear if this is related to her carcinomatosis and partial obstruction in her hernias which did not seem to be obstructed or very tender and we could not completely reduce her bowel there, or whether this was just a [id number]-pzt-mill gastroenteritis. Her vomiting improved, but her diarrhea did not. She continued to have profuse watery diarrhea with all other studies being negative. Clostridium difficile was checked and was positive. She is now on antibiotics. 3. Metastatic ovarian cancer. 4. Abdominal wall hernias. PLAN: Continue IV hydration, low-residue lactose-free diet, and vancomycin. If this is Clostridium difficile, she should have some response in the next several days. Job ID: [id number]
--- NOTE | 2019-09-11 11:05 | PRG ---
DATE OF SERVICE: 09/11/2019 SUBJECTIVE: Ms. Mosley says she is feeling a lot better today. She is not having any abdominal pain or any nausea. She is tolerating her low-fiber lactose-restricted diet without any difficulty. Her diarrhea does persist. She has had 4 loose bowel movements so far this morning, but she does feel that they may be firming up a little bit. She has no other new complaints. OBJECTIVE: VITAL SIGNS: Temperature 98.3, pulse 74, blood pressure 128/79, and 98% oxygen saturation on room air. GENERAL: Lying in bed comfortably, in no acute distress. HEART: Regular rate and rhythm. LUNGS: Clear to auscultation bilaterally. ABDOMEN: Bowel sounds are present. Soft and nontender to palpation throughout. Anterior abdominal wall hernias are reducible. EXTREMITIES: No peripheral edema. LABORATORY STUDIES: Sodium 142, potassium 3.2, BUN less than 4, creatinine 0.54, glucose 106, calcium 7.9, and magnesium 1.1. ASSESSMENT AND PLAN: 1. Clostridium difficile infection. 2. Diarrhea, secondary to Clostridium difficile. The patient is now on day #3 of oral vancomycin. She continues to have diarrhea, but does feel that this might be improving a little bit. She needs to continue oral vancomycin for a 14-day course. From a GI standpoint, once her diarrhea is manageable and if no recurrence of other symptoms, she could potentially be discharged from the hospital. 3. Stage IV ovarian cancer with carcinomatosis. The patient is going to continue to follow up with Dr. Das and may also follow up with her gynecologic oncologist in [place] as well. Please call anytime with questions or concerns. Job ID: [id number]
[2019-09-11] MEDS: Prenatal Vitamin 1 TAB PO SCH (12:56)
--- NOTE | 2019-09-11 14:16 | PDOC.HOSPP ---
- Subjective Encounter Date: 09/11/19 Encounter Time: 09:45 Subjective: pt is still having some diarrhea but is improving. she is now going every 2-3 hours. - Objective Vital Signs & Weight: Vital Signs (12 hours) Temp Pulse Resp BP BP Pulse Ox 09/11/19 08:31 128/79 09/11/19 08:00 98.3 F 74 20 150/88 H 98 Weight Admit Weight 219 lb Weight 219 lb I&O: 09/10/19 09/11/19 09/12/19 06:59 06:59 06:59 Intake Total 1859 2124 Balance 1859 2124 Result Diagrams: 09/08/19 05:22 09/11/19 05:02 Hospitalist ROS - Review of Systems Cardiovascular: denies: chest pain, palpitations, orthopnea, paroxysmal noc. dyspnea, edema, light headedness, other Gastrointestinal: denies: nausea, vomiting, abdominal pain, diarrhea, constipation, melena, hematochezia, other Genitourinary: denies: dysuria, frequency, incontinence, hematuria, retention, other - Medication Medications: Active Medications Generic Name Dose Route Start Last Admin Trade Name Freq PRN Reason Stop Dose Admin Calcium Carbonate 1,000 mg 09/06/19 12:12 09/06/19 19:18 Tums PO 1,000 mg Q4H PRN Administration Heartburn or Indigestion Dicyclomine HCl 10 mg 09/07/19 09:00 09/11/19 08:30 Bentyl PO 10 mg BID ARIADNE Administration Duloxetine HCl 60 mg 09/07/19 09:00 09/11/19 08:31 Cymbalta PO 60 mg DAILY ARIADNE Administration Folic Acid 0.5 mg 09/07/19 09:00 09/11/19 08:33 Folvite PO 0.5 mg DAILY ARIADNE Administration Sodium Chloride 1,000 mls @ 125 mls/hr 09/06/19 12:15 09/11/19 08:42 Normal Saline 0.9% IV 1,000 mls .Q8H ARIADNE Administration Lisinopril 10 mg 09/07/19 09:00 09/11/19 08:31 Zestril PO 10 mg DAILY ARIADNE Administration Morphine Sulfate 2 mg 09/06/19 12:12 09/10/19 12:35 Morphine SLOW IVP 2 mg Q4H PRN Administration Moderate to Severe Pain (6-10) Ondansetron HCl 4 mg 09/06/19 12:12 09/09/19 08:43 Zofran IVP 4 mg Q6H PRN Administration Nausea/Vomiting Pantoprazole Sodium 40 mg 09/09/19 09:00 09/11/19 08:31 Protonix PO 40 mg DAILY ARIADNE Administration Pregabalin 75 mg 09/07/19 09:00 09/11/19 08:33 Lyrica PO 75 mg DAILY ARIADNE Administration Propylene Glycol 2 drop 09/08/19 00:31 09/11/19 08:34 Systane Opth Drop 15ml Bot EA EYE 2 drop Q4H PRN Administration Dry Eyes Rosuvastatin Calcium 5 mg 09/07/19 09:00 09/11/19 08:33 Crestor PO 5 mg DAILY ARIADNE Administration Sodium Chloride 10 ml 09/07/19 09:00 09/11/19 08:42 Flush - Normal Saline IVF Not Given Q12HR ARIADNE Thyroid 45 mg 09/07/19 09:00 09/11/19 08:31 [place] Thyroid PO 45 mg DAILY ARIADNE Administration Valacyclovir HCl 1,000 mg 09/07/19 09:00 09/11/19 08:32 Valtrex PO 1,000 mg DAILY ARIADNE Administration Vancomycin HCl 125 mg 09/10/19 06:00 09/11/19 12:29 First Vancomycin PO 125 mg Q6HR ARIADNE Administration - Exam Heart: negative: RRR, no murmur, no gallops, no rubs, normal peripheral pulses, irregular, diminshed peripheral pulses, murmur present, II/IV, III/IV Respiratory: negative: CTAB, no wheezes, no rales, no ronchi, normal chest expansion, no tachypnea, normal percussion, rales, rhonchi, tachypneic, wheezes Gastrointestinal: negative: soft, non-tender, non-distended, normal bowel sounds , no palpable masses, no hepatomegaly, no splenomegaly, no bruit, no guarding, no rigidity, tender to palpation, distended, diminished bowl sounds, voluntary guarding Hosp A/P (1) C. difficile colitis Code(s): A04.72 - ENTEROCOLITIS D/T CLOSTRIDIUM DIFFICILE, NOT SPCF RECUR Status: Acute (2) Enteritis Code(s): K52.9 - NONINFECTIVE GASTROENTERITIS AND COLITIS, UNSPECIFIED Status : Acute (3) Hypothyroidism Code(s): E03.9 - HYPOTHYROIDISM, UNSPECIFIED Status: Acute (4) Partial small bowel obstruction Status: Acute (5) Ovarian cancer Status: Chronic (6) Leukocytosis Code(s): D72.829 - ELEVATED WHITE BLOOD CELL COUNT, UNSPECIFIED Status: Resolved - Plan will add norco for prn pain. she is tolerating her current diet. she did not have diarrhea today. 09/11 she is tolerating her diet and feels her diarrhea has improved. if she continues to improve. possible discharge in am if ok with oncology.
--- NOTE | 2019-09-11 15:14 | PDOC.MOPN ---
Interval History: frequency of stool better, but did increase after meals. No abd pain - Vital Signs Vital Signs: Vital Signs (12 hours) Temp Pulse Resp BP BP Pulse Ox 09/11/19 08:31 128/79 09/11/19 08:00 98.3 F 74 20 150/88 H 98 Weight Admit Weight 219 lb Weight 219 lb - Physical Exam General: Alert, Oriented x3, No acute distress HEENT: Atraumatic, PERRLA, EOMI, Mucous membr. moist/pink Lungs: Clear to auscultation, Normal air movement Cardiovascular: Regular rate, Normal S1, Normal S2, No murmurs, Gallops, Rubs Abdomen: Normal bowel sounds, Soft, No tenderness, No hepatospenomegaly, No masses Extremities: No clubbing, No cyanosis, No edema, Normal pulses, No tenderness/ swelling Skin: No rashes, No breakdown, No significant lesion Neurological: Normal gait, Normal speech, Strength at 5/5 X4 ext, Normal tone, Sensation intact, Cranial nerves 3-12 NL, Reflexes 2+ Psych/Mental Status: Mental status NL, Mood NL - Labs Result Diagrams: 09/08/19 05:22 09/11/19 05:02 Lab results: Laboratory Results - last 24 hr 09/11/19 05:02: Sodium 142, Potassium 3.2 L, Chloride 107, Carbon Dioxide 29, Anion Gap 9 L, BUN Less than 4 L, Creatinine 0.54 L, Estimated GFR (MDRD) Greater than 90, Glucose 106 H, Calcium 7.9, Magnesium 1.1 L Status: lab reviewed by me A/P - Problem (1) Enteritis Current Visit: Yes Code(s): K52.9 - NONINFECTIVE GASTROENTERITIS AND COLITIS, UNSPECIFIED Status: Acute (2) Partial small bowel obstruction Current Visit: Yes Status: Acute (3) Ovarian cancer Current Visit: Yes Status: Chronic (4) C. difficile colitis Current Visit: Yes Code(s): A04.72 - ENTEROCOLITIS D/T CLOSTRIDIUM DIFFICILE, NOT SPCF RECUR Status: Acute - Plan Plan: Continue oral antibiotics. Ok to go home tomorrow from our perspective Follow-up Friday with Dr. Das.
[2019-09-11] MEDS: HYDROcodone/Acetaminophen 7.5/325 mg Tablet PO PRN (19:49)
[2019-09-11] MEDS: Morphine 2 MG/ML SYRINGE SLOW IVP PRN (20:21)
[2019-09-11] MEDS ORDERED: Fentanyl 100 MCG/2 ML VIAL SLOW IVP PRN (21:34)
--- NOTE | 2019-09-11 22:35 | RAD ---
Exam: One view chest 2 views abdomen HISTORY: Increasing pain Correlation: Abdomen and pelvic CT 09/06/2019 FINDINGS: Left-sided Mediport catheter terminates in the expected region of the superior vena cava. N ormal cardiac silhouette. No masses or consolidation. No pleural effusion or pneumothorax. There is scarring/atelectasis in the left lung base. 2 views abdomen: Nonspecific bowel gas pattern. There are a few air-filled loops of small bowel near the gastric region. Recent CT does demonstrate a ventral abdominal wall hernia containing a segment of transverse colon through the defect. Additionally, there is a segment of small bowel extending thr ough the defect. This segment of small bowel that have some bowel wall thickening. Possibility of a developing obstructive process cannot be excluded. Previous CT did report a partial small bowel obstr uction and enteritis. IMPRESSION: 1. No acute cardiopulmonary process 2. Possible developing bowel obstruction.. Transcribed Date/Time: 09/11/2019 11:55 PM
--- NOTE | 2019-09-11 23:09 | PDOC.EVN ---
Event Note - Event Note Event Note: Nurse called to report increase in abdomen discomfort which was unrelieved after giving Lortab and Morphine 2mg. Fentanyl 25mcg ordered along with abdominal xray which showed possible developing small bowel obstruction (CT scan from 09/06 did show partial small bowel obstruction). GI and general surgery have seen patient on this hospitalization and did not think intervention was needed... pain is currently improved after fentanyl. Will continue to monitor.
[2019-09-12] MEDS: Vancomycin HCl 25 MG/ML Oral PO SCH ×4 (01:04→16:34)
[2019-09-12] MEDS: Morphine 2 MG/ML SYRINGE SLOW IVP PRN (03:01)
[2019-09-12] MEDS: Sodium Chloride 0.9% 1,000 ML IV SCH ×2 (05:59→14:02)
[2019-09-12] MEDS: valACYclovir 500 MG TAB PO SCH (08:35)
[2019-09-12] MEDS: DULoxetine 60 MG CAP PO SCH (08:37)
[2019-09-12] MEDS: Pregabalin 75 MG CAP PO SCH (08:37)
[2019-09-12] MEDS: Folic Acid 1 MG TAB PO SCH (08:38)
[2019-09-12] MEDS: Dicyclomine 10 MG CAP PO SCH ×2 (08:38→21:15)
[2019-09-12] MEDS: HYDROcodone/Acetaminophen 7.5/325 mg Tablet PO PRN (08:38)
[2019-09-12] MEDS: Lisinopril 10 MG TAB PO SCH (08:39)
[2019-09-12] MEDS: Prenatal Vitamin 1 TAB PO SCH (08:42)
[2019-09-12] MEDS: ALPRAZolam 0.5 MG TAB PO PRN ×2 (08:43→21:15)
[2019-09-12] MEDS: Thyroid 30 MG TAB PO SCH (08:45)
--- NOTE | 2019-09-12 12:21 | PRG ---
DATE OF SERVICE: 09/12/2019 SUBJECTIVE: Ms. Mosley feels her diarrhea has continued to slow down. She has had only one bowel movement so far today. However, last night, a couple hours after dinner time, she had fairly significant generalized abdominal pain. This was cramping in nature. They got quite severe. [place] was ineffective. She received morphine and then finally fentanyl in order to get it to resolved. It lasted for several hours into the night, currently doing better today. Abdominal x-rays showed nonspecific bowel gas pattern. OBJECTIVE: VITAL SIGNS: Temperature 98, pulse 65, blood pressure 125/83, and 97% oxygen saturation on room air. GENERAL: No acute distress. HEART: Regular rate and rhythm. LUNGS: Clear to auscultation bilaterally. ABDOMEN: Nondistended, bowel sounds are present. Soft. Some mild tenderness to palpation in the epigastrium over the hernia site as well as the lower abdomen. No guarding, rebound tenderness. EXTREMITIES: No peripheral edema. LABORATORY STUDIES: Sodium 142, potassium 3.2, BUN less than 4, creatinine 0.54. Acute abdominal series from last night showed nonspecific bowel gas pattern, a few air-filled loops of small bowel near the gastric region. ASSESSMENT AND PLAN: 1. Clostridium difficile infection. The patient is now on day #4 of oral vancomycin. Diarrhea is improving. She needs to continue the oral vancomycin for 14 day course. 2. Recurrent abdominal pain. This was quite severe last night, now improved. I suspect that this is not secondary to the Clostridium difficile, which otherwise seems to be improving symptomatically. It is likely secondary to intermittent partial small-bowel obstruction, as a result of her diffuse metastatic disease in the abdomen. I advised her to try to stick with a low-fiber, low-residue diet going forward, to try to mitigate the frequency of similar episodes. 3. Stage IV ovarian cancer with carcinomatosis. The patient is going to continue to follow up with Dr. Das and may also follow up with her gynecologic oncologist in [place] as well. Please call anytime with questions or concerns. Job ID: [id number]
--- NOTE | 2019-09-12 12:55 | PDOC.HOSPP ---
- Subjective Encounter Date: 09/12/19 Encounter Time: 12:30 Subjective: pt up in bed had severe pain to her lower abdomen area. she is now afraid to go home since she feels that the pain will come back. - Objective Vital Signs & Weight: Vital Signs (12 hours) Temp Pulse Resp BP Pulse Ox 09/12/19 07:42 98.0 F 65 18 125/83 97 Weight Admit Weight 219 lb Weight 219 lb I&O: 09/11/19 09/12/19 09/13/19 06:59 06:59 06:59 Intake Total 2124 Balance 212 Result Diagrams: 09/08/19 05:22 09/11/19 05:02 Hospitalist ROS - Review of Systems Cardiovascular: denies: chest pain, palpitations, orthopnea, paroxysmal noc. dyspnea, edema, light headedness, other Gastrointestinal: denies: nausea, vomiting, abdominal pain, diarrhea, constipation, melena, hematochezia, other Genitourinary: denies: dysuria, frequency, incontinence, hematuria, retention, other - Medication Medications: Active Medications Generic Name Dose Route Start Last Admin Trade Name Freq PRN Reason Stop Dose Admin Alprazolam 0.5 mg 09/07/19 07:45 09/12/19 08:43 Xanax PO 0.5 mg PRN PRN Administration Anxiety Calcium Carbonate 1,000 mg 09/06/19 12:12 09/06/19 19:18 Tums PO 1,000 mg Q4H PRN Administration Heartburn or Indigestion Dicyclomine HCl 10 mg 09/07/19 09:00 09/12/19 08:38 Bentyl PO 10 mg BID ARIADNE Administration Duloxetine HCl 60 mg 09/07/19 09:00 09/12/19 08:37 Cymbalta PO 60 mg DAILY ARIADNE Administration Fentanyl 25 mcg 09/11/19 21:34 09/11/19 21:49 Sublimaze SLOW IVP 25 mcg Q2H PRN Administration Moderate to Severe Pain (6-10) Folic Acid 0.5 mg 09/07/19 09:00 09/12/19 08:38 Folvite PO 0.5 mg DAILY ARIADNE Administration Lisinopril 10 mg 09/07/19 09:00 09/12/19 08:39 Zestril PO 10 mg DAILY ARIADNE Administration Morphine Sulfate 2 mg 09/06/19 12:12 09/12/19 03:01 Morphine SLOW IVP 2 mg Q4H PRN Administration Moderate to Severe Pain (6-10) Ondansetron HCl 4 mg 09/06/19 12:12 09/09/19 08:43 Zofran IVP 4 mg Q6H PRN Administration Nausea/Vomiting Pantoprazole Sodium 40 mg 09/09/19 09:00 09/12/19 08:44 Protonix PO 40 mg DAILY ARIADNE Administration Pregabalin 75 mg 09/07/19 09:00 09/12/19 08:37 Lyrica PO 75 mg DAILY ARIADNE Administration Multivit/Folic Acid/Iron 1 tab 09/12/19 09:00 09/12/19 08:42 Vitamin PO 1 tab DAILY ARIADNE Administration Propylene Glycol 2 drop 09/08/19 00:31 09/11/19 08:34 Systane Opth Drop 15ml Bot EA EYE 2 drop Q4H PRN Administration Dry Eyes Rosuvastatin Calcium 5 mg 09/07/19 09:00 09/11/19 08:33 Crestor PO 5 mg DAILY ARIADNE Administration Sodium Chloride 10 ml 09/07/19 09:00 09/12/19 08:47 Flush - Normal Saline IVF 10 ml Q12HR ARIADNE Administration Thyroid 45 mg 09/07/19 09:00 09/12/19 08:45 [place] Thyroid PO 45 mg DAILY ARIADNE Administration Valacyclovir HCl 1,000 mg 09/07/19 09:00 09/12/19 08:35 Valtrex PO 1,000 mg DAILY ARIADNE Administration Vancomycin HCl 125 mg 09/10/19 06:00 09/12/19 06:06 First Vancomycin PO 125 mg Q6HR ARIADNE Administration - Exam Neck: negative: supple, symmetric, no JVD, no thyromegaly, no lymphadenopathy, no carotid bruit, JVD Heart: negative: RRR, no murmur, no gallops, no rubs, normal peripheral pulses, irregular, diminshed peripheral pulses, murmur present, II/IV, III/IV Respiratory: negative: CTAB, no wheezes, no rales, no ronchi, normal chest expansion, no tachypnea, normal percussion, rales, rhonchi, tachypneic, wheezes Gastrointestinal: soft, tender to palpation Gastrointestinal - other findings: to lower abdomen Hosp A/P (1) C. difficile colitis Code(s): A04.72 - ENTEROCOLITIS D/T CLOSTRIDIUM DIFFICILE, NOT SPCF RECUR Status: Acute (2) Enteritis Code(s): K52.9 - NONINFECTIVE GASTROENTERITIS AND COLITIS, UNSPECIFIED Status : Acute (3) Hypothyroidism Code(s): E03.9 - HYPOTHYROIDISM, UNSPECIFIED Status: Acute (4) Partial small bowel obstruction Status: Acute (5) Ovarian cancer Status: Chronic (6) Leukocytosis Code(s): D72.829 - ELEVATED WHITE BLOOD CELL COUNT, UNSPECIFIED Status: Resolved - Plan will add norco for prn pain. she is tolerating her current diet. she did not have diarrhea today. 09/11 she is tolerating her diet and feels her diarrhea has improved. if she continues to improve. possible discharge in am if ok with oncology. 09/12 pt does not feel comfortable going home and having the pain which occured quickly in about 15 min. She states that she has been off pain meds for 24hr. I will schedule her norco for 24hr to see if this help her. Her diarrhea has improved. she is a scared to eat since she feels that her pain will come back.
[2019-09-12] MEDS: HYDROcodone/Acetaminophen 7.5/325 mg Tablet PO SCH ×2 (13:37→21:14)
[2019-09-12] MEDS: Rosuvastatin 5 MG TAB PO SCH (13:45)
[2019-09-12] MEDS: Ondansetron PF 4 MG/2 ML Vial IVP PRN (21:14)
[2019-09-13] MEDS: Vancomycin HCl 25 MG/ML Oral PO SCH ×2 (01:02→06:18)
[2019-09-13] MEDS: HYDROcodone/Acetaminophen 7.5/325 mg Tablet PO SCH (06:17)
[2019-09-13] MEDS ORDERED: HYDROcodone/Acetaminophen 7.5/325 mg Tablet PO SCH (09:00)
[2019-09-13] MEDS: Lisinopril 10 MG TAB PO SCH (09:35)
[2019-09-13] MEDS: valACYclovir 500 MG TAB PO SCH (09:35)
[2019-09-13] MEDS: Prenatal Vitamin 1 TAB PO SCH (09:36)
[2019-09-13] MEDS: Rosuvastatin 5 MG TAB PO SCH (09:36)
[2019-09-13] MEDS: Dicyclomine 10 MG CAP PO SCH (09:36)
[2019-09-13] MEDS: Folic Acid 1 MG TAB PO SCH (09:36)
[2019-09-13] MEDS: Pregabalin 75 MG CAP PO SCH (09:36)
[2019-09-13] MEDS: DULoxetine 60 MG CAP PO SCH (09:36)
[2019-09-13] MEDS: Thyroid 30 MG TAB PO SCH (09:38)
[2019-09-13] MEDS: ALPRAZolam 0.5 MG TAB PO PRN (09:45)
[2019-09-13 10:44] VITALS: BP 126/84; TEMP 98.2
--- NOTE | 2019-09-13 11:38 | PRG ---
DATE OF SERVICE: 09/13/2019 SUBJECTIVE: Ms. Mosley's diarrhea has essentially resolved. She did have a bout of bad pain yesterday and therefore did not go home. Her abdomen is still sore on the belt line, but is better. She is on a low-residue diet. She is on vancomycin 125 p.o. q.6 hours. OBJECTIVE: VITAL SIGNS: Temperature 97.8, she has been afebrile, pulse 71, blood pressure 141/85. ABDOMEN: She has a midline anterior abdominal wall hernia. There is no evidence of incarceration. Abdomen is much less tender than it was on Friday. LABORATORY DATA: No labs. ASSESSMENT: 1. Clostridium difficile. This is probably the cause of her diarrhea as her diarrhea is markedly better now. 2. Abnormal enhancement of small bowel. This is likely due to carcinomatosis. 3. Abdominal wall hernia. It does not seem that she has any incarcerated hernias at this time. 4. I think she is having intermittent partial small-bowel obstructions from her carcinomatosis. RECOMMENDATIONS: 1. Vancomycin 125 mg p.o. q.i.d. for 14 days, probiotic for 2 months. 2. I talked with the patient about means of reducing risk of reinfection or re-flare including hygiene, cleaning of bathrooms, and bed clothes at home. True risk of transmitting infection as she does have a mother who is also getting chemotherapy, and what we would do if she has recurrent symptoms, what to look for. 3. We will defer to Oncology whether or not they are going to have her see INDUSTRIAL HYGIENE ENGINEER-Oncology. I suspect that there is significant chance she will be back in the hospital with partial obstructive symptoms again. 4. We would recommend a low-residue diet. Job ID: [id number]
--- NOTE | 2019-09-14 14:28 | DIS ---
DATE OF ADMISSION: 09/06/2019 DATE OF DISCHARGE: 09/13/2019 DISCHARGE DIAGNOSES: As of the following, 1. Abdominal pain. 2. Partial small bowel obstruction. 3. Clostridium difficile colitis. 4. Enteritis. 5. Hypothyroidism. 6. Ovarian cancer. 7. Leukocytosis. HOSPITAL COURSE: The patient is a 49-year-old female with a history of recently diagnosed with ovarian cancer. She has undergone some chemotherapy. She initially presented to the hospital with complaints of nausea, vomiting, diarrhea, and abdominal pain. Job ID: [id number]
[2019-09-14 21:07] LABS: Norovirus GI Negative (Negative); Norovirus GII Negative (Negative)
== END 2019-09-13 11:02 | disposition home or self-care (01) | DRG 375 ==
LOC: ERS 08:21 → OBSVTOIN 11:55 → 2SW 11:55 → T4-A 09-07 19:07
PROVIDERS: ADMIT Internal Medicine; ATTEND Internal Medicine
DX: C78.6 Secondary malignant neoplasm of retroperitoneum and peritoneum (principal); C56.9 Malignant neoplasm of unspecified ovary; A04.72 Enterocolitis due to Clostridium difficile, not specified as recurrent; J45.909 Unspecified asthma, uncomplicated; E03.9 Hypothyroidism, unspecified; I10 Essential (primary) hypertension; K46.9 Unspecified abdominal hernia without obstruction or gangrene; Z90.49 Acquired absence of other specified parts of digestive tract; Z79.890 Hormone replacement therapy; Z88.1 Allergy status to other antibiotic agents; Z79.899 Other long term (current) drug therapy
CPT/HCPCS: 36415; 36416; 74022; 74177; 80048; 80053; 81003; 81015; 83690; 83735; 84100; 85025; 87045; 87046; 87324; 87328; 87329; 87427; 87449; 87798; 93005; 96361; 96374; 96375; C9113; J2270; J2405; J3010; Q9967

== ENCOUNTER 2019-09-17 07:23 | Day surgery (SDC) | payer MEDICARE ==
[2019-09-16 11:08] VITALS: BMI 34.4
[2019-09-17] MEDS ORDERED: Acetaminophen 500 MG TAB ONE ×2 (07:44→08:08)
[2019-09-17] MEDS ORDERED: Ketorolac Tromethamine 30 MG/ML VIAL ONE (07:44)
[2019-09-17] MEDS ORDERED: Midazolam HCl 2 mg/2 ml Vial ONE (09:22)
[2019-09-17] MEDS ORDERED: Fentanyl 100 MCG/2 ML VIAL ONE (09:22)
[2019-09-17] MEDS ORDERED: Bupivacaine 0.25% HCL 30 ML VIAL ONE (09:29)
[2019-09-17] MEDS ORDERED: Lidocaine 1% w/Epinephrine 1:100K 20 ML VIAL ONE (09:29)
[2019-09-17] MEDS ORDERED: Lidocaine 2% w/Epinephrine 1:200K 20 ML VIAL ONE ×2 (09:30→09:46)
[2019-09-17] MEDS ORDERED: Lidocaine 2% Jelly 5 ML TUBE ONE (09:52)
[2019-09-17] MEDS ORDERED: PROPOFOL 200 MG/20 ML VIAL ONE (10:07)
[2019-09-17] MEDS ORDERED: Dexamethasone 20 MG/5 ML VIAL ONE (10:07)
[2019-09-17] MEDS ORDERED: EPHEDRINE 25 MG/5 ML SYRINGE ONE (10:07)
[2019-09-17] MEDS ORDERED: Lidocaine 1% PF 5 ML VIAL ONE (10:07)
[2019-09-17] MEDS ORDERED: PHENYLEPHRINE-NS 100 MCG/ML 10 ML SYRINGE ONE (10:07)
[2019-09-17] MEDS ORDERED: Ondansetron PF 4 MG/2 ML Vial ONE (10:07)
[2019-09-17] MEDS ORDERED: Succinylcholine Chloride 20 MG/ML 10 ml SYRINGE FS ONE (10:07)
[2019-09-17] MEDS ORDERED: Albuterol Sulfate HFA (OR ONLY) ONE (10:18)
[2019-09-17] MEDS ORDERED: Sodium Chloride 0.9% 0 ML ONE (10:37)
--- NOTE | 2019-09-17 12:01 | RAD ---
XR Chest 1 View HISTORY: Mediport placement COMPARISON: 09/11/2019 FINDINGS: There is been interval placement of right internal jugular Port-A-Cath with tip in the proj ection of the SVC. The tip of the left Port-A-Cath is to the left of midline likely in the left brachiocephalic vein. The heart size is stable. No lobar consolidation, pneumothoraces or pleural eff usions are seen.
--- NOTE | 2019-09-17 12:20 | PDOC.OP ---
Operative Note - Operative Note Operative Note: PROCEDURE: Right internal jugular MediPort placement with ultrasound and fluoroscopic guidance, and removal of left subclavian Mediport, with internal portion of tubing left in place due to adherence to the vein. DATE OF PROCEDURE: 09/17/2019 SURGEON: Aureliano Camarena M.D. PREOPERATIVE DIAGNOSIS: Nonfunctioning left subclavian Mediport with need for ongoing chemotherapy POSTOPERATIVE DIAGNOSIS: Nonfunctioning left subclavian Mediport with need for ongoing chemotherapy HISTORY: Patient has been diagnosed with stage IV ovarian cancer. She has a left subclavian Mediport in place which appears to be encased in a fibrinous sheath and cannot be injected. She needs ongoing chemotherapy and a new Mediport has been requested for this. OPERATIVE PROCEDURE IN DETAIL: After informed consent was obtained and appropriate preoperative antibiotics administered, the patient was taken to the operating room and placed in supine position and monitored anesthesia care was administered. The patient was then placed in Trendelenburg position and the patent compressible right internal jugular vein accessed easily on the first attempt under direct ultrasound guidance with excellent flow of dark venous non- pulsatile blood. A wire threaded easily and was confirmed to be in the compressible vein by ultrasound and with the tip in the superior vena cava by fluoroscopy. Additional local anesthesia was infused to the skin and subcutaneous tissues of the right neck and chest. A skin incision was made on the right chest and a subcutaneous pocket developed inferiorly. A Mediport was obtained and confirmed to fit in the subcutaneous pocket. This was secured inferiorly to the pectoralis fascia with a Prolene suture, which was clamped, but not tied. Mediport tubing was then tunneled from the chest to the right IJ access site subcutaneously. The dilator and sheath were then placed over the wire and the dilator and wire removed leaving the sheath in place. The clamped MediPort tubing was tunneled through the sheath, which was then split and removed leaving the MediPort tubing in place. The tubing was adjusted until the tip was confirmed by fluoroscopy to be in the superior vena cava just above the atrium. The tubing was clamped at the skin level and cut and the tubing secured to the port, which was then placed in the subcutaneous pocket. The previously placed suture was secured and two additional sutures were placed to fix the port in place within the pocket. The port was aspirated with the Torres needle and had excellent flow of dark venous non-pulsatile blood and easily flushed without resistance. The subcutaneous tissues were closed with a running Monocryl suture, following which the skin was closed with a running subcuticular Monocryl suture. Dermabond dressings were placed. The course of the catheter was confirmed by fluoroscopy to be smooth with the tip appropriately located in the superior vena cava. The left subclavian Mediport was anesthetized with local anesthesia and the previous skin incision reopened. Dissection was carried down to the port which was easily dissected free of the subcutaneous pocket. Attempts to withdraw the tubing however met with a lot of resistance. The tubing was mobile up to the level of the clavicle but the end of the catheter appeared to be adherent to the vein so the decision was made to ligate and leave the distal catheter in place removing the outer portion of the Mediport. The tubing was ligated with a 0 silk tie and the subcutaneous tunnel leading to the pocket was closed with a 3-0 Monocryl suture. The pocket was imbricated with 3-0 Monocryl suture and the skin closed with 4-0 Monocryl and Dermabond placed. The patient was taken back to recovery in good condition. Estimated blood loss was minimal. There were no complications. There were no specimens.
== END 2019-09-17 12:50 | disposition home or self-care (01) ==
LOC: SDC 07:23
PROVIDERS: ATTEND Surgery
PROC: 02HV33Z Insertion of Infusion Device into Superior Vena Cava, Percutaneous Approach (ICD-10-PCS; principal; 2019-09-17)
DX: T85.698A Other mechanical complication of other specified internal prosthetic devices, implants and grafts, initial encounter (principal); C56.9 Malignant neoplasm of unspecified ovary; I10 Essential (primary) hypertension; E03.9 Hypothyroidism, unspecified; G47.33 Obstructive sleep apnea (adult) (pediatric); J44.9 Chronic obstructive pulmonary disease, unspecified; Z79.899 Other long term (current) drug therapy; Z87.891 Personal history of nicotine dependence; Z88.1 Allergy status to other antibiotic agents; Z99.89 Dependence on other enabling machines and devices
CPT/HCPCS: 36561; 36590; 71045; C1788; J0690; J1100; J1642; J1885; J2001; J2250; J2405; J2704; J3010; S0020

== ENCOUNTER 2019-10-29 08:35 | Outpatient (CLI) | payer MEDICARE ==
[2019-10-29] MEDS ORDERED: Iopamidol-370 76% 500 ML 1 ML ONE (09:13)
--- NOTE | 2019-10-29 10:26 | CT ---
CT ABDOMEN AND PELVIS WITH ORAL AND IV CONTRAST: HISTORY: Malignant neoplasm of right ovary. Secondary malignant neoplasm of liver and intrahepatic bile duct. Other neutropenia. Patient on chemotherapy. COMPARISON: 09/06/2019. FINDINGS: There are subsegmental atelectatic changes at the right lung base. No calcified gallstones are seen. The 2 cm hypodense lesion in segment 6 of the right hepatic lobe is stable. The spleen, pancreas, adrenal glands, and kidneys are normal. There has been interval decrease in the amount of free fluid in the pelvis. Peritoneal nodules are a gain seen in the abdomen and pelvis. There is a 3.8 cm mass in the right pelvis which is larger comp ared to the previous study. This may either represent a peritoneal metastasis or tumor recurrence. The remainder of the peritoneal nodules are otherwise stable. The ventral hernias containing bowel are again seen. The small bowel loops are not abnormally dilate d. No osteolytic or osteoblastic lesions are identified. Degenerative changes in the spine are agai n seen. IMPRESSION: Interval increase in the size of the right pelvic mass since 09/06/2019. POS: TOMY
== END 2019-10-29 08:36 | disposition home or self-care (01) ==
LOC: BICCT 08:35
PROVIDERS: ATTEND Internal Medicine Hematology & Oncology
DX: C56.1 Malignant neoplasm of right ovary (principal); C78.7 Secondary malignant neoplasm of liver and intrahepatic bile duct; R19.00 Intra-abdominal and pelvic swelling, mass and lump, unspecified site
CPT/HCPCS: 74177

== ENCOUNTER 2019-12-26 08:21 | Inpatient (IN) | payer MEDICARE ==
[2019-12-26] MEDS ORDERED: Morphine 4 MG/ML VIAL ONE ×2 (08:43→09:41)
[2019-12-26] MEDS ORDERED: Ondansetron PF 4 MG/2 ML Vial ONE ×2 (08:44→15:42)
[2019-12-26 08:56] LABS: White Blood Cell (WBC) Count 8.2 thou/uL (4.8-10.8)
[2019-12-26 09:04] LABS: ALT (SGPT) 49 U/L (8-55); AST (SGOT) 32 U/L (5-34); Albumin 3.9 g/dL (3.5-5.0); Alkaline Phosphatase 131 U/L (40-110); Anion Gap 15 mmol/L (10-20); BUN (Urea Nitrogen) 10 mg/dL (7.0-18.7); Bilirubin, Total 0.7 mg/dL (0.2-1.2); Calc. Creatinine Clearance 0 mL/min (70-130); Calcium 8.8 mg/dL (7.8-10.44); Carbon Dioxide 27 mmol/L (22-29); Chloride 102 mmol/L (98-107); Estimated GFR-MDRD 90; Globulin 2.9 g/dL (2.4-3.5); Glucose 128 mg/dL (70-105); Potassium 4.1 mmol/L (3.5-5.1); Protein, Total 6.8 g/dL (6.0-8.3); Sodium 140 mmol/L (136-145)
[2019-12-26 09:19] LABS: Eosinophils 1 % (0-10); Hemoglobin 15.4 g/dL (12.0-16.0); Hypersemented Neutrophil SLIGHT; Large Platelets SLIGHT; Lymphocytes 16 % (21-51); MDiff Complete? YES; Macrocytosis SLIGHT = 6-15 cells (100X) (0-5/hpf); Mean Corpuscular HGB CONC 33.4 g/dL (32.0-36.0); Mean Corpuscular Hemoglobin 35.3 pg (27.0-31.0); Mean Platelet Volume 8.6 fL (7.4-10.4); Monocytes 24 % (0-10); Neutrophil 59 % (42-75); Platelet Count 213 thou/uL (130-400); Platelet Morphology Comment Appears Adequate; RBC Distribution Width 13.9 % (11.5-14.5); Red Blood Cell (RBC) Count 4.35 mill/uL (4.20-5.40)
[2019-12-26] MEDS ORDERED: Iopamidol-370 76% 500 ML 1 ML ONE (09:35)
[2019-12-26] MEDS ORDERED: Fentanyl 100 MCG/2 ML VIAL ONE ×2 (10:32→10:34)
[2019-12-26] MEDS ORDERED: HYDROmorphone 0.5 MG/0.5 ML SYRINGE ONE ×2 (10:34→12:49)
--- NOTE | 2019-12-26 11:24 | CT ---
CT ABDOMEN AND PELVIS WITH IV CONTRAST: Date: 12/26/2019 HISTORY: Abdominal pain. Ovarian cancer with metastatic disease to liver and intrahepatic bile duct. Patient i s status post hysterectomy and bilateral oophorectomy. Patient had vomiting yesterday. COMPARISON: 10/29/2019. FINDINGS: The lung bases are clear. No calcified gallstones are seen. A 2.0 cm hypodense lesion in segment o f the right lobe of the liver is stable. The spleen, pancreas, adrenal glands, and kidneys are normal . Peritoneal nodularity demonstrates interval worsening. There has been interval increase in size of the pelvic masses measuring 4.5 cm on the right and 3.7 cm anteriorly. The ventral hernias containing small and large bowel are again seen. Interval development of mild asc ites has occurred. The inferior ventral hernia contains loops of small bowel which demonstrate proxim al dilatation and transition zone in the efferent loop. There is enhancement of the ramirez of the affe rent and efferent loops. There are vascular calcifications without evidence of aneurysmal dilatation of the abdominal aorta. N o osteolytic or osteoblastic lesions are noted. There are degenerative changes in the spine. There is anterior wedging of the superior end plate of L2 vertebral body which appears new since the last exa m. IMPRESSION: 1. Small bowel obstruction with suggestion of strangulation of the herniated small bowel loop in the inferior anterior abdominal wall hernia. 2. Interval worsening of peritoneal metastases and pelvic masses since 10/29/2019. 3. Anterior wedge compression of the superior end plate of L2 is new since the previous study. Discussed over the telephone with ER physician, Dr. Colton Rain, at 0923 hours. CODE CR. POS: OFF
[2019-12-26] MEDS ORDERED: Promethazine HCl 25 MG/ML VIAL SLOW IVP PRN (12:35)
[2019-12-26] MEDS ORDERED: PACU-Morphine 4MG/ML VIAL SLOW IVP PRN (12:35)
[2019-12-26] MEDS ORDERED: Promethazine HCl 25 MG/ML VIAL IM PRN ×3 (12:35→14:30)
[2019-12-26] MEDS ORDERED: Naloxone HCl 0.4 mg/ml Vial IV PRN (12:35)
[2019-12-26] MEDS ORDERED: Zolpidem Tartrate 5 MG TAB PO PRN (12:35)
[2019-12-26] MEDS ORDERED: HYDROmorphone 2 MG/ML VIAL SLOW IVP PRN (12:35)
[2019-12-26] MEDS ORDERED: HYDROmorphone 10 mg/100 ml CADD IVPB PRN (12:35)
[2019-12-26] MEDS ORDERED: Ondansetron PF 4 MG/2 ML Vial IVP PRN ×2 (12:35→14:30)
[2019-12-26] MEDS ORDERED: Ondansetron HCl/PF 4 MG/2 ML Vial IVP PRN (12:35)
[2019-12-26] MEDS ORDERED: diphenhydrAMINE 25 MG CAP PO PRN (12:35)
[2019-12-26] MEDS ORDERED: diphenhydrAMINE 50 MG/ML VIAL IM PRN (12:35)
[2019-12-26] MEDS ORDERED: diphenhydrAMINE 50 MG/ML VIAL IVP PRN (12:35)
[2019-12-26] MEDS ORDERED: Communication Order-Pharmacy FS PRN (12:45)
[2019-12-26] MEDS ORDERED: Dextrose 5% in Water 1,000 ML IV PRN (14:30)
[2019-12-26] MEDS ORDERED: Dextrose 50% Abboject 50 ML SYRINGE SLOW IVP PRN (14:30)
[2019-12-26] MEDS ORDERED: hydrALAZINE 20 MG/ML VIAL SLOW IVP PRN (14:30)
[2019-12-26] MEDS ORDERED: Albuterol Sulfate HFA (OR ONLY) FS PRN (14:30)
--- NOTE | 2019-12-26 14:40 | OP ---
DATE OF PROCEDURE: 12/26/2019 PREOPERATIVE DIAGNOSIS: Incarcerated incisional hernia. POSTOPERATIVE DIAGNOSIS: Incarcerated incisional hernia. PROCEDURE PERFORMED: Incarcerated incisional hernia repair with mesh x2. ANESTHESIA: General. ESTIMATED BLOOD LOSS: Minimal. COMPLICATIONS: None. SPECIMENS: None. FINDINGS: Incarcerated hernia x2. DESCRIPTION OF PROCEDURE: The patient was taken to the operating room and laid supine on the operating room table. After general anesthetic was obtained, a Yip was placed. The abdomen was shaved, prepped, and draped in a sterile fashion. A midline incision was made in the upper abdomen to the umbilicus. Cautery was used to dissect down to the hernia sacs. Hernia sacs were dissected back away from the subcutaneous fat to the hernia defects. They were both reducible. The fascia had to be released a little bit a small amount to get the lower hernia to completely reduce. The posterior edges of fascia were dissected free of scar tissue. The abdominal cavity was not completely entered and I stayed preperitoneal. [address] meshes were brought in and placed in each defect and the anterior layer of the mesh was sewn to the posterior fascia using permanent braided suture. Care was taken to avoid damage to the intestine or colon during this portion of the procedure. The wound was irrigated. A 19 round drain brought out through a separate stab incision. The fascia was able to be closed over the mesh using PDS suture in both locations. The subcutaneous tissues were irrigated and closed using 3-0 Vicryl, 4-0 Monocryl, and Dermabond. The patient was sent to Recovery in stable condition. All instrument counts, needle counts, and lap counts were correct. Job ID: [id number]
--- NOTE | 2019-12-26 14:41 | HP ---
CHIEF COMPLAINT: Abdominal pain. HISTORY OF PRESENT ILLNESS: This is a 49-year-old female with a history of metastatic ovarian cancer and known carcinomatosis, who is a patient of Dr. Das and Dr. Kiersten Camacho. She presents with severe increased abdominal pain in the upper abdomen. CT in the ER shows evidence of strangulation of her known hernia. Attempts of complete reduction at bedside are unsuccessful. PAST MEDICAL HISTORY: Include stage IV ovarian cancer, hemorrhoids, hypothyroidism, asthma, hypertension. PAST SURGICAL HISTORY: Appendectomy, tonsillectomy, laparoscopic biopsy. ALLERGIES: CIPRO AND DOXYCYCLINE. MEDICATIONS: See list. SOCIAL HISTORY: No tobacco, alcohol, or other drugs. REVIEW OF SYSTEMS: Ten-system review of systems is otherwise negative unless described above. PHYSICAL EXAMINATION: HEENT: Sclerae are anicteric. Oropharynx is clear. NECK: No lymphadenopathy. CHEST: Clear. HEART: Regular rate. ABDOMEN: Soft. Diffuse tender in the area of the hernias with localized guarding without rebound. EXTREMITIES: No ischemia or edema to extremities. LABORATORY DATA: White blood cell count is 8, hemoglobin 15, platelet count is 213. Creatinine is 0.69. CT scan reviewed. ASSESSMENT: Incarcerated, rule out strangulated incisional hernias. PLAN: Urgent repair. She understands that she is high risk for this procedure for infection and malignant erosion through the skin, however, without repair, she is certainly at risk for clinical deterioration. Job ID: [id number]
[2019-12-26] MEDS ORDERED: Rocuronium Bromide 10 MG/ML (10ML VIAL) ONE (15:42)
[2019-12-26] MEDS ORDERED: Glycopyrrolate 0.2 MG/ML 5 ML SYRINGE ONE (15:42)
[2019-12-26] MEDS ORDERED: Dexamethasone 20 MG/5 ML VIAL ONE (15:42)
[2019-12-26] MEDS ORDERED: PROPOFOL 200 MG/20 ML VIAL ONE (15:42)
[2019-12-26] MEDS ORDERED: Ketorolac Tromethamine 30 MG/ML VIAL ONE (15:42)
[2019-12-26] MEDS ORDERED: Lidocaine 1% PF 5 ML VIAL ONE (15:42)
[2019-12-26] MEDS: Sodium Chloride 0.9% 1,000 ML IV SCH (16:52)
[2019-12-26] MEDS: Famotidine/PF 20 mg/2ml Vial SLOW IVP SCH (21:20)
[2019-12-26] MEDS: Famotidine 20 MG TAB PO SCH (21:20)
[2019-12-26 21:29] VITALS: BMI 34.4
[2019-12-27] MEDS: Sodium Chloride 0.9% 1,000 ML IV SCH (00:08)
[2019-12-27] MEDS: DULoxetine 60 MG CAP PO SCH (08:58)
[2019-12-27] MEDS: Famotidine 20 MG TAB PO SCH ×2 (08:58→21:08)
[2019-12-27] MEDS: Lisinopril 10 MG TAB PO SCH (08:58)
[2019-12-27] MEDS: Famotidine/PF 20 mg/2ml Vial SLOW IVP SCH ×2 (09:03→21:08)
[2019-12-27] MEDS ORDERED: Sodium Chloride 0.9% 1,000 ML IV SCH (09:05)
--- NOTE | 2019-12-27 09:36 | PRG ---
DATE OF SERVICE: 12/27/2019 SUBJECTIVE: Ms. Mosley is complaining of postop pain, mild nausea. OBJECTIVE: VITAL SIGNS: She is afebrile. Vital signs are stable. ABDOMEN: Soft. The wound is healing well. BRIT drain serosanguineous. ASSESSMENT: Postoperative day 1, incarcerated ventral incisional hernia repair with mesh. PLAN: Advance to full liquids. 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 Job ID: [id number]
[2019-12-27] MEDS ORDERED: ALPRAZolam 0.5 MG TAB PO SCH (13:00)
[2019-12-27] MEDS: Acetaminophen 500 MG TAB PO SCH ×2 (15:51→21:08)
--- NOTE | 2019-12-27 18:50 | CON ---
DATE OF CONSULTATION: REASON FOR CONSULTATION: Ovarian cancer. HISTORY OF PRESENT ILLNESS: Ms. 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 She has also had a history of ventral abdominal wall hernia. On Friday, she began to have severe abdominal pain with vomiting. She presented to the emergency room for evaluation. CT scan showed a strangulation of her hernia. It was unable to be reduced at bedside, so she underwent hernia repair with mesh by Dr. Tiwari. The patient is on Alimta for her ovarian cancer. She had a recent of her mother who was also our patient. She has been struggling with depression and anxiety. She is resting at bedside. She remains on a Dilaudid EQUIPMENT MAINTENANCE TECHNICIAN pump. Her diet was advanced today and she tolerated solid food. She has had no flatulence or bowel movement. PAST MEDICAL HISTORY: 1. 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 2. Liver hemangioma. 3. Hemorrhoids. 4. Hypothyroidism. 5. Asthma. 6. Hypertension. 7. History of C difficile in 08/2019. PAST SURGICAL HISTORY: 1. Tonsillectomy. 2. Laparoscopic biopsy. 3. Appendectomy. ALLERGIES: CIPRO AND DOXYCYCLINE. HOME MEDICATIONS: 1. Alprazolam 0.5 mg p.r.n. 2. [place] Thyroid 30 mg daily. 3. Crestor 5 mg daily. 4. Prozac 60 mg daily. 5. Folic acid daily. 6. Naubinway 7.5 mg two tablets q.6 h. 7. Lisinopril 10. 8. Lyrica 75 daily. 9. Prilosec daily. FAMILY HISTORY: Mother had breast cancer. SOCIAL HISTORY: Single. One child lives with her parents. No alcohol, tobacco , or illicit drug use. REVIEW OF SYSTEMS: A 10-point review of systems is negative except for noted in HPI. PHYSICAL EXAMINATION: VITAL SIGNS: Temperature is 98.3, pulse is 88, respiratory rate 18, BP is 119/ 68, and she is 97% on room air. GENERAL: This is a well-developed, well-nourished female, depressed. HEENT: Normocephalic and atraumatic. Pupils are equal and reactive to light. CV: Regular rate and rhythm. LUNGS: Clear. ABDOMEN: Nontender and soft. She has a midline incision intact. EXTREMITIES: No clubbing or cyanosis. SKIN: No rash. HEMATOLOGIC: No petechiae or purpura. NEUROLOGIC: Nonfocal. PERTINENT LABORATORY DATA AND X-RAYS: Current WBCs 8.2, hemoglobin 15.4, hematocrit 46, and platelet count 213,000. She got 59% neutrophils, 16% lymphocytes, and 24% monocytes. Sodium 140, potassium 4.1, chloride 102, CO2 is 27, BUN is 10, creatinine 0.69, and calcium is 8.8. Bilirubin 0.7, AST is 32, ALT is 49, alkaline phosphatase is 131, serum total protein 6.8, albumin 3.9, globulin 2.9, and lipase 5. ASSESSMENT: 1. Metastatic ovarian cancer. 2. Incarcerated hernia status post repair. 3. Depression. DISCUSSION: The patient's pain is better managed with EQUIPMENT MAINTENANCE TECHNICIAN. She has Xanax and Ambien to help her sleep, as she states she has not slept in 2 days. She is tearful during our conversation. I would recommend resuming her Cymbalta once she is tolerating oral intake. Case has been discussed with Dr. Tiwari and Dr. Das, will follow along with her hospital course. She will follow-up with Dr. Das in the clinic. Thank you for the consult. Job ID: [id number] [facility]
[2019-12-27] MEDS: Enoxaparin Sodium 40 MG/0.4 ML SYRINGE SC SCH (21:07)
[2019-12-28] MEDS ORDERED: ALPRAZolam 0.5 MG TAB PO PRN (00:01)
[2019-12-28] MEDS: Acetaminophen 500 MG TAB PO SCH ×2 (03:14→09:48)
[2019-12-28] MEDS: Pregabalin 75 MG CAP PO SCH (08:54)
[2019-12-28] MEDS: Famotidine 20 MG TAB PO SCH ×2 (09:45→19:51)
[2019-12-28] MEDS: DULoxetine 60 MG CAP PO SCH (09:45)
[2019-12-28] MEDS: Famotidine/PF 20 mg/2ml Vial SLOW IVP SCH ×2 (09:56→19:52)
[2019-12-28] MEDS: Lisinopril 10 MG TAB PO SCH (09:57)
[2019-12-28] MEDS ORDERED: HYDROcodone/Acetaminophen 7.5/325 mg Tablet PO PRN (10:29)
[2019-12-28] MEDS ORDERED: Fentanyl 100 MCG/2 ML VIAL SLOW IVP PRN ×2 (10:29)
--- NOTE | 2019-12-28 10:36 | PDOC.GSPN ---
Surgery Progress Note: Subj - Subjective Narrative: Pain better controlled. Ambulating, tolerated regular diet Surgery Progress Note: Obj - Vital signs Vital signs: Vital Signs - Most Recent Temp Pulse Resp BP Pulse Ox 98.1 F 76 20 115/74 96 12/28/19 07:48 12/28/19 07:48 12/28/19 07:48 12/28/19 09:57 12/28/19 07:48 - Physical Exam General: no distress Respiratory: clear to auscultation Abdomen: soft, appropriately tender Wound: healing well (BRIT serosang) Surgery Progress Note: Results - Labs Result Diagrams: 12/26/19 08:30 12/26/19 08:30 Surgery Progress Note: A/P - Problem (1) Incarcerated ventral hernia Current Visit: Yes Code(s): K43.6 - OTHER AND UNSP VENTRAL HERNIA WITH OBSTRUCTION, W/O GANGRENE Status: Acute - Plan Plan: POD 2 -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
--- NOTE | 2019-12-28 15:01 | PDOC.MOPN ---
Interval History: feeling better today, off AD OPERATIONS COORDINATOR. Ambulating - Vital Signs Vital Signs: Vital Signs (12 hours) Temp Pulse Resp BP BP Pulse Ox 12/28/19 14:57 98.4 F 81 20 114/71 95 12/28/19 12:32 98.2 F 76 16 114/65 97 12/28/19 09:57 115/74 12/28/19 08:00 96 12/28/19 07:48 98.1 F 76 20 109/58 L 96 12/28/19 03:58 98.1 F 73 18 107/62 96 Weight Weight 219 lb 12.814 oz - Physical Exam General: Alert, Oriented x3, No acute distress HEENT: Atraumatic, PERRLA, EOMI, Mucous membr. moist/pink Lungs: Clear to auscultation, Normal air movement Cardiovascular: Regular rate, Normal S1, Normal S2, No murmurs, Gallops, Rubs Abdomen: Other (mid line incision with remigio drain) Extremities: No clubbing, No cyanosis, No edema, Normal pulses, No tenderness/ swelling Neurological: Normal gait, Normal speech, Strength at 5/5 X4 ext, Normal tone, Sensation intact, Cranial nerves 3-12 NL, Reflexes 2+ - Labs Result Diagrams: 12/26/19 08:30 12/26/19 08:30 Status: lab reviewed by me A/P - Problem (1) Incarcerated ventral hernia Current Visit: Yes Code(s): K43.6 - OTHER AND UNSP VENTRAL HERNIA WITH OBSTRUCTION, W/O GANGRENE Status: Acute (2) Ovarian cancer Current Visit: No Status: Chronic - Plan Plan: continue pain meds prn advance diet as tolerated likely home in am follow-up next week with Dr. Das.
[2019-12-28] MEDS: HYDROcodone/Acetaminophen 7.5/325 mg Tablet PO PRN ×2 (17:09→23:47)
[2019-12-28] MEDS: Enoxaparin Sodium 40 MG/0.4 ML SYRINGE SC SCH (19:51)
[2019-12-29 03:25] VITALS: TEMP 97.9
[2019-12-29] MEDS: HYDROcodone/Acetaminophen 7.5/325 mg Tablet PO PRN (06:52)
[2019-12-29] MEDS: Famotidine 20 MG TAB PO SCH (09:15)
[2019-12-29] MEDS: Pregabalin 75 MG CAP PO SCH (09:15)
[2019-12-29] MEDS: Lisinopril 10 MG TAB PO SCH (09:15)
[2019-12-29] MEDS: DULoxetine 60 MG CAP PO SCH (09:15)
[2019-12-29 09:16] VITALS: BP 115/74
[2019-12-29] MEDS: Famotidine/PF 20 mg/2ml Vial SLOW IVP SCH (09:25)
--- NOTE | 2019-12-29 14:39 | DIS ---
DATE OF ADMISSION: 12/26/2019 DATE OF DISCHARGE: 12/29/2019 ADMIT DIAGNOSIS: Incarcerated ventral hernia. DISCHARGE DIAGNOSES: 1. Incarcerated ventral hernia. 2. Ovarian cancer, metastatic, with carcinomatosis. PROCEDURES: Emergent incarcerated ventral hernia repair with mesh by Dr. Tiwari without complication. CONDITION ON DISCHARGE: Improved. HOSPITAL COURSE: Patient was admitted and underwent emergency surgery. Postop course uneventful. Advanced her diet without difficulty. Pain was well controlled. On postop day 3, her drain is removed. She is doing well. Her wound looks clear. PLAN: She is going to follow up with me next 01/03/2020 at 8:20 a.m. She already has pain medicine at home for her chronic pain. Prescriptions for Zofran 8 mg dissolvable as well as Lovenox shots to prevent [facility]. Condition on discharge is improved. Follow up with me next Friday. Job ID: [id number]
== END 2019-12-29 14:29 | disposition home or self-care (01) | DRG 354 ==
LOC: ERS 08:21 → SDC 10:28 → SURG B 16:06
PROVIDERS: ADMIT Surgery; ATTEND Surgery
PROC: 0WUF0JZ Supplement Abdominal Wall with Synthetic Substitute, Open Approach (ICD-10-PCS; principal; 2019-12-26)
DX: K43.6 Other and unspecified ventral hernia with obstruction, without gangrene (principal); C56.9 Malignant neoplasm of unspecified ovary; C80.0 Disseminated malignant neoplasm, unspecified; E03.9 Hypothyroidism, unspecified; J45.909 Unspecified asthma, uncomplicated; I10 Essential (primary) hypertension; G47.33 Obstructive sleep apnea (adult) (pediatric); F32.9 Major depressive disorder, single episode, unspecified; R13.10 Dysphagia, unspecified; F17.210 Nicotine dependence, cigarettes, uncomplicated; Z90.49 Acquired absence of other specified parts of digestive tract; Z88.1 Allergy status to other antibiotic agents; Z88.8 Allergy status to other drugs, medicaments and biological substances; Z90.710 Acquired absence of both cervix and uterus
CPT/HCPCS: 74177; 80053; 83690; 85025; C1781; J0690; J1100; J1170; J1650; J1885; J2001; J2270; J2405; J2704; J3010; Q9967; S0028

== ENCOUNTER 2020-06-08 08:27 | Outpatient (CLI) | payer MEDICARE ==
--- NOTE | 2020-06-08 10:17 | CT ---
CT ABDOMEN AND PELVIS WITH ORAL AND IV CONTRAST: HISTORY: Ovarian cancer with mets to liver and intrahepatic bile duct. Neutropenia. COMPARISON: 12/26/2019 and 10/29/2019. FINDINGS: The lung bases are clear. No calcified gallstones are seen. The gallbladder is contracted. The spl een, pancreas, adrenal glands, and kidneys are normal. The 2 cm hypodense lesion in segment 6 of the right lobe of the liver is stable. No new liver lesion s are seen. The peritoneal nodularity has improved in the interim. A residual 5 mm nodule is seen i n the left upper quadrant (previously 15 mm). The right-sided pelvic mass is smaller measuring about 15 mm. No free air, free fluid, or retroperitoneal lymphadenopathy is seen. The small bowel loops are not abnormally dilated. Interval postop changes of herniated bowel are see n. A 7.2 x 5.8 x 7.6 cm fluid collection/cystic mass in the subcutaneous fat of the anterior abdomin al wall is likely a postop seroma. There is no evidence of aneurysmal dilatation of the abdominal aorta. There are degenerative changes in the spine. No osteolytic or osteoblastic lesions are seen. Anterior wedging of the superior end plate of L2 vertebral body is stable. IMPRESSION: 1. Stable liver lesion. 2. Interval reduction in sizes of the peritoneal nodules and right pelvic mass. 3. Postop seroma in the anterior abdominal wall. POS: OFF
[2020-06-08] MEDS ORDERED: Iopamidol-370 76% 500 ML 1 ML ONE (14:52)
== END 2020-06-08 08:28 | disposition home or self-care (01) ==
LOC: BICCT 08:27
PROVIDERS: ATTEND Internal Medicine Hematology & Oncology
DX: C56.1 Malignant neoplasm of right ovary (principal); C78.7 Secondary malignant neoplasm of liver and intrahepatic bile duct; K76.9 Liver disease, unspecified; R19.00 Intra-abdominal and pelvic swelling, mass and lump, unspecified site; Z98.890 Other specified postprocedural states
CPT/HCPCS: 74177; Q9967

== ENCOUNTER 2020-09-25 08:47 | Outpatient (CLI) | payer MEDICARE ==
--- NOTE | 2020-09-25 09:48 | CT ---
Exam: Chest CT with contrast Abdomen CT with contrast Pelvic CT with contrast HISTORY: Ovarian cancer. Correlation: None COMPARISON: 08/05/2019, 10/29/2019, abdomen and pelvic CT 06/08/2020 FINDINGS: Chest CT: Mediastinum: No mass, lymphadenopathy or hematoma. Aorta: Thoracic and abdominal aorta have a normal caliber. No periaortic fat stranding. Heart: Normal heart size. No significant pericardial fluid. Trachea and central bronchi: Patent. Pleural spaces: No pleural effusion. Right lung: No mass, consolidation or contusion. Left lung:No mass, consolidation or contusion. Pneumothorax: None. Abdomen CT: Gallbladder: Contracted. Portal vein: Patent. Liver: Redemonstration of a hypodense focus with central hyperdensity noted in segment VII of the sanchez er. This focus measures 1.5 x 1.0 cm, previously measuring 1.9 x 1.1 cm. No additional abnormal enhancing lesions in the hepatic parenchyma.. Spleen: Appropriate enhancement. Pancreas: Appropriate enhancement. Adrenal glands: Appropriate enhancement. Lymphadenopathy: No gastrohepatic, retrocrural or periportal lymphadenopathy. Kidneys: Symmetric enhancement. Bilaterally no obstructive uropathy. Mesentery: No free air or free fluid. Multiple punctate soft tissue densities in the left upper quadr ant mesentery, which has slightly decreased in size. Largest hypodense focus measures 0.7 cm x 0.7 cm, previously measuring 1.4 cm. Alimentary canal: No evidence of a bowel obstruction. Normal ileocecal junction. Scattered fecal mate rial in a nondistended, nondilated colon. Pelvis CT: No mass, lymphadenopathy, free air, or free fluid. Uterus is surgically absent. Unremarkable urinary bladder. Abdominal wall: Redemonstration of a hypodense collection in the anterior right abdominal subcutaneou s fat measuring 6.5 x 5.3 cm with an attenuation coefficient of 11 Hounsfield units. Previously, this collection measures 5.8 x 7.1 cm. Osseous structures: There are no lytic or blastic lesions in the osseous structures. Chronic endplate changes. IMPRESSION: 1. Redemonstration of a lesion in segment VII of liver which appears to have slightly decreased in si ze when compared to the previous exam. Findings may represent partial response to therapy. 2. Interval decrease in size of peritoneal lymph node in the left upper quadrant. 3. Stable postoperative changes with seroma in the anterior right subcutaneous fat. Transcribed Date/Time: 09/25/2020 9:55 AM
[2020-09-25] MEDS ORDERED: Iopamidol-370 76% 500 ML 1 ML ONE (14:58)
== END 2020-09-25 08:48 | disposition home or self-care (01) ==
LOC: BICCT 08:47
PROVIDERS: ATTEND Internal Medicine Hematology & Oncology
DX: C56.1 Malignant neoplasm of right ovary (principal); C78.7 Secondary malignant neoplasm of liver and intrahepatic bile duct; L76.34 Postprocedural seroma of skin and subcutaneous tissue following other procedure
CPT/HCPCS: 71260; 74177; Q9967

== ENCOUNTER 2020-11-28 08:02 | Outpatient (CLI) | payer MEDICARE ==
[2020-11-28] MEDS ORDERED: Iopamidol-370 76% 500 ML 1 ML ONE (09:36)
== END 2020-11-28 08:03 | disposition home or self-care (01) ==
LOC: BICCT 08:02
PROVIDERS: ATTEND Internal Medicine Hematology & Oncology
DX: C56.1 Malignant neoplasm of right ovary (principal); C78.7 Secondary malignant neoplasm of liver and intrahepatic bile duct; R97.1 Elevated cancer antigen 125 [CA 125]; R19.09 Other intra-abdominal and pelvic swelling, mass and lump
CPT/HCPCS: 71260; 74177; Q9967

== ENCOUNTER 2021-01-01 13:16 | Outpatient (CLI) | payer MEDICARE ==
[~2021-01-01 13:16] MED LIST changes: -Iopamidol 300 61% 50 ML VIAL FS ONE; +Iopamidol 370 76% 100 ML VIAL ONE
== END 2021-01-01 13:17 | disposition home or self-care (01) ==
LOC: CT 13:16
PROVIDERS: ATTEND Internal Medicine Hematology & Oncology
DX: C56.1 Malignant neoplasm of right ovary (principal); C78.7 Secondary malignant neoplasm of liver and intrahepatic bile duct; K56.609 Unspecified intestinal obstruction, unspecified as to partial versus complete obstruction
CPT/HCPCS: 74177; Q9967

== ENCOUNTER 2021-03-05 09:10 | Emergency (ER) | payer MEDICARE ==
[2021-03-05] MEDS ORDERED: Morphine 4 MG/ML VIAL ONE ×2 (10:18→12:20)
[2021-03-05] MEDS ORDERED: Ondansetron PF 4 MG/2 ML Vial ONE (10:18)
[2021-03-05 10:39] LABS: Hemoglobin 12.2 g/dL (12.0-16.0); Mean Corpuscular HGB CONC 31.5 g/dL (32.0-36.0); Mean Corpuscular Hemoglobin 29.5 pg (27.0-31.0); Mean Corpuscular Volume 93.7 fL (78.0-98.0); Mean Platelet Volume 9.3 fL (7.4-10.4); Platelet Count 245 thou/uL (130-400); RBC Distribution Width 17.4 % (11.5-14.5); Red Blood Cell (RBC) Count 4.15 mill/uL (4.20-5.40); White Blood Cell (WBC) Count 7.1 thou/uL (4.8-10.8)
[2021-03-05] MEDS ORDERED: Iopamidol-370 76% 500 ML 1 ML ONE (10:58)
[2021-03-05 11:00] LABS: Albumin 3.9 g/dL (3.5-5.0); Anion Gap 14 mmol/L (10-20); BUN (Urea Nitrogen) 9 mg/dL (7.0-18.7); Bilirubin, Total 0.5 mg/dL (0.2-1.2); Calc. Creatinine Clearance 0 mL/min (70-130); Calcium 9.4 mg/dL (7.8-10.44); Carbon Dioxide 27 mmol/L (22-29); Chloride 99 mmol/L (98-107); Globulin 3.1 g/dL (2.4-3.5); Glucose 113 mg/dL (70-105); Potassium 4.3 mmol/L (3.5-5.1); Sodium 136 mmol/L (136-145)
[2021-03-05 11:01] LABS: ALT (SGPT) 37 U/L (8-55); ALT (SGPT) 38 U/L (8-55); AST (SGOT) 24 U/L (5-34); Albumin 3.8 g/dL (3.5-5.0); Alkaline Phosphatase 159 U/L (40-110); Anion Gap 14 mmol/L (10-20); BUN (Urea Nitrogen) 8 mg/dL (7.0-18.7); Bilirubin, Total 0.5 mg/dL (0.2-1.2); Calc. Creatinine Clearance 0 mL/min (70-130); Calcium 9.4 mg/dL (7.8-10.44); Carbon Dioxide 25 mmol/L (22-29); Chloride 100 mmol/L (98-107); Globulin 3.2 g/dL (2.4-3.5); Glucose 113 mg/dL (70-105); Lipase 6 U/L (8-78); Potassium 4.1 mmol/L (3.5-5.1); Sodium 135 mmol/L (136-145)
[2021-03-05 11:04] LABS: Band 4 % (5-11); Lymphocytes 32 % (21-51); MDiff Complete? YES; Monocytes 16 % (0-10); Neutrophil 48 % (42-75); Platelet Morphology Comment Appears Adequate; Polychromasia SLIGHT = 2-3 cells (100X) (0-2/hpf)
[2021-03-05 12:48] LABS: Bacteria/HPF None Seen HPF (None Seen); Bilirubin Negative (Negative); Blood, Urine Negative (Negative); Clarity Clear (Clear); Glucose, Urine (Dipstick) Normal (Negative); Ketone, Urine Negative (Negative); Leukocyte 250 Leu/uL (Negative); Nitrite Negative (Negative); Protein, Urine (Dipstick) 10 mg/dL (Neg-Trace); RBC/HPF 0-3 HPF (0-3); WBC/HPF 0-3 HPF (0-3)
[2021-03-05 12:57] LABS: Specific Gravity, Urine Greater than 1.060 (1.002-1.036)
== END 2021-03-05 13:00 | disposition home or self-care (01) ==
LOC: ERS 09:10
DX: R10.12 Left upper quadrant pain (principal); I10 Essential (primary) hypertension; F17.210 Nicotine dependence, cigarettes, uncomplicated; Z79.899 Other long term (current) drug therapy
CPT/HCPCS: 36415; 74177; 80053; 81003; 81015; 83605; 83690; 84484; 85025; 87086; 93005; 96374; 96375; 96376; J1642; J2270; J2405; Q9967

== ENCOUNTER 2021-05-14 08:34 | Outpatient (CLI) | payer MEDICARE ==
[2021-05-14] MEDS ORDERED: Iopamidol-370 76% 500 ML 1 ML ONE (09:30)
== END 2021-05-14 08:35 | disposition home or self-care (01) ==
LOC: BICCT 08:34
PROVIDERS: ATTEND Internal Medicine Hematology & Oncology
DX: C56.1 Malignant neoplasm of right ovary (principal); C78.7 Secondary malignant neoplasm of liver and intrahepatic bile duct; D70.8 Other neutropenia; K76.89 Other specified diseases of liver; M79.89 Other specified soft tissue disorders
CPT/HCPCS: 74177; Q9967

== ENCOUNTER 2021-07-02 10:36 | Emergency (ER) | payer MEDICARE | END 2021-07-02 12:08 | disposition home or self-care (01) | LOC: ERS 10:36 | DX: S82.832A Other fracture of upper and lower end of left fibula, initial encounter for closed fracture (principal); I10 Essential (primary) hypertension; E03.9 Hypothyroidism, unspecified; F17.210 Nicotine dependence, cigarettes, uncomplicated; Z79.51 Long term (current) use of inhaled steroids; W10.9XXA Fall (on) (from) unspecified stairs and steps, initial encounter ==

== ENCOUNTER 2021-07-04 15:29 | Inpatient (IN) | payer MEDICARE ==
[2021-07-04 16:15] LABS: #Monocytes 1.8 thou/uL (0.11-0.59); #Neutrophils 10.7 thou/uL (1.40-6.50); %Basophils 0.1 % (0.0-1.0); %Eosinophils 0.3 % (0.0-10.0); %Lymphocytes 7.4 % (21.0-51.0); %Neutrophils 79.1 % (42.0-75.0); Hemoglobin 14.3 g/dL (12.0-16.0); Mean Corpuscular HGB CONC 29.9 g/dL (32.0-36.0); Mean Corpuscular Hemoglobin 33.7 pg (27.0-31.0); Mean Platelet Volume 7.9 fL (7.4-10.4); Platelet Count 496 thou/uL (130-400); RBC Distribution Width 16.9 % (11.5-14.5); Red Blood Cell (RBC) Count 4.25 mill/uL (4.20-5.40); White Blood Cell (WBC) Count 13.5 thou/uL (4.8-10.8)
[2021-07-04 16:33] LABS: Anisocytosis SLIGHT = 6-15 cells (100X) (0-5/hpf); MDiff Complete? YES; Macrocytosis SLIGHT = 6-15 cells (100X) (0-5/hpf); Platelet Morphology Comment Appears Adequate; Polychromasia SLIGHT = 2-3 cells (100X) (0-2/hpf)
[2021-07-04 16:40] LABS: Bacteria/HPF 1+ HPF (None Seen); Bilirubin Negative (Negative); Blood, Urine Trace (Negative); Clarity Turbid (Clear); Glucose, Urine (Dipstick) Normal (Negative); Ketone, Urine Negative (Negative); Leukocyte 500 Leu/uL (Negative); Nitrite Negative (Negative); Protein, Urine (Dipstick) 30 mg/dL (Neg-Trace); Squamous Epithelial 0-3 HPF (0-3); Urobilinogen 3 mg/dL (Less than 2); pH, Urine 6.5 (5.0-9.0)
[2021-07-04 16:55] LABS: Albumin 3.3 g/dL (3.5-5.0)
[2021-07-04 16:56] LABS: Calcium 9.1 mg/dL (7.8-10.44); Chloride 103 mmol/L (98-107); Potassium 4.2 mmol/L (3.5-5.1); Sodium 133 mmol/L (136-145)
[2021-07-04 16:57] LABS: Globulin 3.3 g/dL (2.4-3.5); Glucose 126 mg/dL (70-105); Protein, Total 6.6 g/dL (6.0-8.3)
[2021-07-04 16:59] LABS: Anion Gap 19 mmol/L (10-20); Bilirubin, Total 1.3 mg/dL (0.2-1.2); Carbon Dioxide 15 mmol/L (22-29)
[2021-07-04 17:00] LABS: Alkaline Phosphatase 134 U/L (40-110); Calc. Creatinine Clearance 0 mL/min (70-130)
[2021-07-04 17:01] LABS: BUN (Urea Nitrogen) 12 mg/dL (7.0-18.7)
[2021-07-04 17:02] LABS: AST (SGOT) 88 U/L (5-34)
[2021-07-04 17:03] LABS: ALT (SGPT) 60 U/L (8-55); Lipase 7 U/L (8-78)
[2021-07-04] MEDS ORDERED: Ondansetron PF 4 MG/2 ML Vial ONE ×2 (18:01→22:01)
[2021-07-04] MEDS ORDERED: Morphine 4 MG/ML VIAL ONE ×3 (18:01→23:58)
[2021-07-05] MEDS ORDERED: Morphine 4 MG/ML VIAL SLOW IVP PRN ×2 (00:23→01:17)
[2021-07-05] MEDS ORDERED: Ondansetron PF 4 MG/2 ML Vial IVP PRN ×2 (00:30→15:32)
[2021-07-05] MEDS ORDERED: Ondansetron ODT 4 MG TAB SL PRN (00:30)
[2021-07-05 00:39] VITALS: BMI 33.5
[2021-07-05] MEDS ORDERED: hydrALAZINE 20 MG/ML VIAL SLOW IVP PRN (01:14)
[2021-07-05] MEDS ORDERED: Lorazepam 2 MG/ML VIAL SLOW IVP PRN ×2 (01:15→23:30)
[2021-07-05] MEDS: Sodium Chloride 0.9% 1,000 ML IV SCH ×2 (01:39→08:35)
[2021-07-05] MEDS: Morphine 4 MG/ML VIAL SLOW IVP PRN ×2 (01:40→08:32)
[2021-07-05 04:25] LABS: #Eosinphils 0.1 thou/uL (0.0-0.7); #Lymphocytes 0.9 thou/uL (1.20-3.40); #Monocytes 1.4 thou/uL (0.11-0.59); #Neutrophils 14.4 thou/uL (1.40-6.50); %Basophils 0.1 % (0.0-1.0); %Eosinophils 0.4 % (0.0-10.0); %Lymphocytes 5.5 % (21.0-51.0); %Monocytes 8.1 % (0.0-10.0); Hemoglobin 15.3 g/dL (12.0-16.0); Mean Corpuscular HGB CONC 31.7 g/dL (32.0-36.0); Mean Corpuscular Hemoglobin 34.4 pg (27.0-31.0); Mean Platelet Volume 8.2 fL (7.4-10.4); Platelet Count 540 thou/uL (130-400); Red Blood Cell (RBC) Count 4.45 mill/uL (4.20-5.40); White Blood Cell (WBC) Count 16.8 thou/uL (4.8-10.8)
[2021-07-05 04:42] LABS: Anion Gap 14 mmol/L (10-20); BUN (Urea Nitrogen) 14 mg/dL (7.0-18.7); Calc. Creatinine Clearance 169 mL/min (70-130); Carbon Dioxide 24 mmol/L (22-29); Chloride 103 mmol/L (98-107); Glucose 132 mg/dL (70-105); Potassium 4.1 mmol/L (3.5-5.1); Sodium 137 mmol/L (136-145)
[2021-07-05] MEDS ORDERED: Morphine 4 MG/ML VIAL SLOW IVP SCH (05:15)
[2021-07-05 09:14] LABS: SARS-CoV-2 NAA Rapid Test Not Detected (NotDetected)
[2021-07-05] MEDS ORDERED: Fentanyl 100 MCG/2 ML VIAL ONE ×3 (13:46→15:33)
[2021-07-05] MEDS ORDERED: Dexmedetomidine 200 MCG/2 ML VIAL ONE (13:46)
[2021-07-05] MEDS ORDERED: Midazolam HCl 2 mg/2 ml Vial ONE (13:47)
[2021-07-05] MEDS ORDERED: Ondansetron PF 4 MG/2 ML Vial ONE (14:00)
[2021-07-05] MEDS ORDERED: PROPOFOL 200 MG/20 ML VIAL ONE (14:00)
[2021-07-05] MEDS ORDERED: Phenylephrine 10 MG/ML VIAL ONE ×2 (14:00→14:40)
[2021-07-05] MEDS ORDERED: Lidocaine 1% PF 5 ML VIAL ONE (14:00)
[2021-07-05] MEDS ORDERED: Rocuronium Bromide 10 MG/ML (10ML VIAL) ONE (14:00)
[2021-07-05] MEDS ORDERED: Succinylcholine 200 MG/10 ml SYRINGE FS ONE (14:00)
[2021-07-05] MEDS ORDERED: HYDROmorphone 2 MG/ML VIAL ONE ×2 (14:40→15:33)
[2021-07-05] MEDS ORDERED: SUGAMMADEX SODIUM 200 MG/2 ML VIAL ONE (14:41)
[2021-07-05] MEDS ORDERED: Ondansetron HCl/PF 4 MG/2 ML Vial IVP PRN (15:24)
[2021-07-05] MEDS ORDERED: Promethazine HCl 25 MG/ML VIAL IM PRN ×3 (15:24→16:12)
[2021-07-05] MEDS ORDERED: Promethazine HCl 25 MG/ML VIAL IVPB PRN (15:24)
[2021-07-05] MEDS ORDERED: HYDROmorphone 2 MG/ML VIAL SLOW IVP PRN (15:24)
[2021-07-05] MEDS ORDERED: Meperidine HCl/PF 25 MG/ML VIAL SLOW IVP PRN (15:24)
[2021-07-05] MEDS ORDERED: Dextrose 5% in Water 1,000 ML IV PRN (15:32)
[2021-07-05] MEDS ORDERED: Dextrose 50% Abboject 50 ML SYRINGE SLOW IVP PRN (15:32)
[2021-07-05] MEDS ORDERED: diphenhydrAMINE 50 MG/ML VIAL IVP PRN (16:12)
[2021-07-05] MEDS ORDERED: diphenhydrAMINE 25 MG CAP PO PRN (16:12)
[2021-07-05] MEDS ORDERED: diphenhydrAMINE 50 MG/ML VIAL IM PRN (16:12)
[2021-07-05] MEDS ORDERED: Naloxone HCl 0.4 mg/ml Vial IV PRN (16:12)
[2021-07-05] MEDS ORDERED: Zolpidem Tartrate 5 MG TAB PO PRN (16:12)
[2021-07-05] MEDS ORDERED: PCA Communication Order-Pharmacy FS SCH (16:15)
[2021-07-05] MEDS: D5 1/2 NS w/20 mEq KCL 1,000 ML IV SCH (17:37)
[2021-07-05] MEDS ORDERED: Lorazepam 2 MG/ML VIAL SLOW IVP SCH (21:30)
[2021-07-05] MEDS: Famotidine 20 MG TAB PO SCH (22:05)
[2021-07-05] MEDS: Famotidine/PF 20 mg/2ml Vial SLOW IVP SCH (22:06)
[2021-07-06] MEDS: D5 1/2 NS w/20 mEq KCL 1,000 ML IV SCH ×3 (00:56→18:00)
[2021-07-06 04:57] LABS: Anion Gap 10 mmol/L (10-20); BUN (Urea Nitrogen) 15 mg/dL (7.0-18.7); Calc. Creatinine Clearance 159 mL/min (70-130); Calcium 8.3 mg/dL (7.8-10.44); Carbon Dioxide 26 mmol/L (22-29); Chloride 103 mmol/L (98-107); Glucose 170 mg/dL (70-105); Potassium 4.2 mmol/L (3.5-5.1); Sodium 135 mmol/L (136-145)
[2021-07-06 05:01] LABS: Anisocytosis SLIGHT = 6-15 cells (100X) (0-5/hpf); Band 14 % (5-11); Hemoglobin 13.9 g/dL (12.0-16.0); Lymphocytes 9 % (21-51); MDiff Complete? YES; Macrocytosis SLIGHT = 6-15 cells (100X) (0-5/hpf); Mean Corpuscular HGB CONC 31.2 g/dL (32.0-36.0); Mean Corpuscular Hemoglobin 33.5 pg (27.0-31.0); Monocytes 4 % (0-10); Neutrophil 73 % (42-75); Platelet Count 307 thou/uL (130-400); Platelet Morphology Comment Appears Adequate; Polychromasia SLIGHT = 2-3 cells (100X) (0-2/hpf); RBC Distribution Width 16.8 % (11.5-14.5); Red Blood Cell (RBC) Count 4.16 mill/uL (4.20-5.40); White Blood Cell (WBC) Count 10.5 thou/uL (4.8-10.8)
[2021-07-06] MEDS: Famotidine 20 MG TAB PO SCH ×2 (08:56→20:17)
[2021-07-06] MEDS: Enoxaparin Sodium 40 MG/0.4 ML SYRINGE SC SCH (09:16)
[2021-07-06] MEDS: Famotidine/PF 20 mg/2ml Vial SLOW IVP SCH ×2 (09:47→20:18)
[2021-07-06] MEDS: fentaNYL Citrate/PF 2,000 MCG in Sodium Chloride 0.9% 60 ML IV PRN (22:17)
[2021-07-07] MEDS: D5 1/2 NS w/20 mEq KCL 1,000 ML IV SCH ×3 (01:27→16:11)
[2021-07-07 06:36] LABS: #Eosinphils 0.1 thou/uL (0.0-0.7); #Lymphocytes 0.9 thou/uL (1.20-3.40); #Monocytes 0.2 thou/uL (0.11-0.59); #Neutrophils 5.7 thou/uL (1.40-6.50); %Basophils 0.1 % (0.0-1.0); %Eosinophils 1.1 % (0.0-10.0); %Lymphocytes 13.6 % (21.0-51.0); %Monocytes 2.2 % (0.0-10.0); %Neutrophils 82.9 % (42.0-75.0); Hemoglobin 12.5 g/dL (12.0-16.0); Mean Corpuscular HGB CONC 31.7 g/dL (32.0-36.0); Mean Corpuscular Hemoglobin 34.3 pg (27.0-31.0); Mean Platelet Volume 8.4 fL (7.4-10.4); Platelet Count 198 thou/uL (130-400); RBC Distribution Width 16.7 % (11.5-14.5); Red Blood Cell (RBC) Count 3.65 mill/uL (4.20-5.40); White Blood Cell (WBC) Count 6.8 thou/uL (4.8-10.8)
[2021-07-07 06:58] LABS: Anion Gap 11 mmol/L (10-20); BUN (Urea Nitrogen) 11 mg/dL (7.0-18.7); Calc. Creatinine Clearance 185 mL/min (70-130); Calcium 8.3 mg/dL (7.8-10.44); Carbon Dioxide 25 mmol/L (22-29); Chloride 101 mmol/L (98-107); Glucose 129 mg/dL (70-105); Sodium 133 mmol/L (136-145)
[2021-07-07] MEDS: Famotidine 20 MG TAB PO SCH ×2 (08:02→19:40)
[2021-07-07] MEDS: Enoxaparin Sodium 40 MG/0.4 ML SYRINGE SC SCH (08:33)
[2021-07-07] MEDS: Famotidine/PF 20 mg/2ml Vial SLOW IVP SCH ×3 (08:33→20:20)
[2021-07-07] MEDS: Ondansetron PF 4 MG/2 ML Vial IVP PRN (20:20)
[2021-07-08] MEDS: D5 1/2 NS w/20 mEq KCL 1,000 ML IV SCH ×3 (02:13→21:21)
[2021-07-08] MEDS: Ondansetron PF 4 MG/2 ML Vial IVP PRN (04:52)
[2021-07-08] MEDS: fentaNYL Citrate/PF 2,000 MCG in Sodium Chloride 0.9% 60 ML IV PRN (05:23)
[2021-07-08] MEDS: Enoxaparin Sodium 40 MG/0.4 ML SYRINGE SC SCH (09:03)
[2021-07-08] MEDS: Famotidine 20 MG TAB PO SCH ×2 (09:03→21:21)
[2021-07-08] MEDS: Famotidine/PF 20 mg/2ml Vial SLOW IVP SCH (09:31)
[2021-07-09] MEDS: D5 1/2 NS w/20 mEq KCL 1,000 ML IV SCH ×4 (02:30→23:40)
[2021-07-09] MEDS: hydrALAZINE 20 MG/ML VIAL SLOW IVP PRN ×2 (04:45→13:41)
[2021-07-09 05:52] LABS: #Eosinphils 0.1 thou/uL (0.0-0.7); #Lymphocytes 1.2 thou/uL (1.20-3.40); #Monocytes 0.6 thou/uL (0.11-0.59); #Neutrophils 2.9 thou/uL (1.40-6.50); %Basophils 0.1 % (0.0-1.0); %Eosinophils 1.2 % (0.0-10.0); %Monocytes 13.3 % (0.0-10.0); %Neutrophils 60.3 % (42.0-75.0); Hemoglobin 11.5 g/dL (12.0-16.0); Mean Corpuscular HGB CONC 32.2 g/dL (32.0-36.0); Mean Corpuscular Hemoglobin 34.6 pg (27.0-31.0); Mean Platelet Volume 8.5 fL (7.4-10.4); Platelet Count 167 thou/uL (130-400); RBC Distribution Width 16.1 % (11.5-14.5); Red Blood Cell (RBC) Count 3.31 mill/uL (4.20-5.40); White Blood Cell (WBC) Count 4.7 thou/uL (4.8-10.8)
[2021-07-09 06:21] LABS: Anion Gap 9 mmol/L (10-20); BUN (Urea Nitrogen) Less than 4 mg/dL (7.0-18.7); Calc. Creatinine Clearance 188 mL/min (70-130); Calcium 8.7 mg/dL (7.8-10.44); Carbon Dioxide 27 mmol/L (22-29); Chloride 101 mmol/L (98-107); Glucose 104 mg/dL (70-105); Potassium 4.1 mmol/L (3.5-5.1); Sodium 133 mmol/L (136-145)
[2021-07-09] MEDS: Famotidine/PF 20 mg/2ml Vial SLOW IVP SCH ×2 (09:19→21:17)
[2021-07-09] MEDS: Enoxaparin Sodium 40 MG/0.4 ML SYRINGE SC SCH (09:19)
[2021-07-09] MEDS: Famotidine 20 MG TAB PO SCH ×2 (10:08→21:16)
[2021-07-09] MEDS: fentaNYL Citrate/PF 2,000 MCG in Sodium Chloride 0.9% 60 ML IV PRN (11:44)
[2021-07-10] MEDS: Enoxaparin Sodium 40 MG/0.4 ML SYRINGE SC SCH (08:59)
[2021-07-10] MEDS: Famotidine/PF 20 mg/2ml Vial SLOW IVP SCH ×2 (08:59→20:36)
[2021-07-10] MEDS: Famotidine 20 MG TAB PO SCH ×2 (10:06→20:37)
[2021-07-10] MEDS ORDERED: D5 1/2 NS w/20 mEq KCL 1,000 ML IV SCH (12:05)
[2021-07-10] MEDS ORDERED: fentaNYL 50 mcg/hour Patch TD SCH (14:00)
[2021-07-10] MEDS ORDERED: HYDROcodone/Acetaminophen 7.5/325 mg Tablet PO PRN (17:00)
[2021-07-10] MEDS ORDERED: Fentanyl 100 MCG/2 ML VIAL SLOW IVP PRN (17:00)
[2021-07-11] MEDS: Famotidine 20 MG TAB PO SCH (08:31)
[2021-07-11] MEDS: Enoxaparin Sodium 40 MG/0.4 ML SYRINGE SC SCH (08:31)
[2021-07-11] MEDS: Famotidine/PF 20 mg/2ml Vial SLOW IVP SCH (08:32)
[2021-07-11] MEDS ORDERED: DULoxetine 60 MG CAP PO SCH (09:00)
[2021-07-11 12:39] VITALS: BP 140/83; TEMP 97.4
[2021-07-11] MEDS ORDERED: Fentanyl 100 MCG/2 ML VIAL SLOW IVP PRN (12:45)
== END 2021-07-11 15:07 | disposition home health service (06) | DRG 336 ==
LOC: ERS 15:29 → MSONC 23:08
PROVIDERS: ADMIT Specialist; ATTEND Specialist
PROC: 0D9670Z Drainage of Stomach with Drainage Device, Via Natural or Artificial Opening (ICD-10-PCS; 2021-07-04)
PROC: 0DN80ZZ Release Small Intestine, Open Approach (ICD-10-PCS; principal; 2021-07-05)
DX: C78.6 Secondary malignant neoplasm of retroperitoneum and peritoneum (principal); K56.7 Ileus, unspecified; K43.6 Other and unspecified ventral hernia with obstruction, without gangrene; Z51.5 Encounter for palliative care; Z20.822 Contact with and (suspected) exposure to COVID-19; Z66 Do not resuscitate; I10 Essential (primary) hypertension; E78.5 Hyperlipidemia, unspecified; E03.9 Hypothyroidism, unspecified; J45.909 Unspecified asthma, uncomplicated; K21.9 Gastro-esophageal reflux disease without esophagitis; K76.9 Liver disease, unspecified; E78.00 Pure hypercholesterolemia, unspecified; Z90.49 Acquired absence of other specified parts of digestive tract; Z90.710 Acquired absence of both cervix and uterus; Z88.1 Allergy status to other antibiotic agents; Z79.899 Other long term (current) drug therapy; Z85.43 Personal history of malignant neoplasm of ovary; S82.832A Other fracture of upper and lower end of left fibula, initial encounter for closed fracture; F17.210 Nicotine dependence, cigarettes, uncomplicated; Z79.51 Long term (current) use of inhaled steroids; W10.9XXA Fall (on) (from) unspecified stairs and steps, initial encounter
CPT/HCPCS: 36415; 71045; 74177; 80048; 80053; 81003; 81015; 82248; 83605; 83615; 83690; 84100; 84550; 85025; 86304; 87086; 96374; 96375; 96376; J0360; J1170; J1642; J1650; J2060; J2250; J2270; J2370; J2405; J2704; J3010; J3480; J3490; J7050; S0028; U0002

== ENCOUNTER 2021-07-27 09:36 | Emergency (ER) | payer MEDICARE ==
[2021-07-27 10:23] LABS: ALT (SGPT) 14 U/L (8-55); AST (SGOT) 24 U/L (5-34); Albumin 2.9 g/dL (3.5-5.0); Alkaline Phosphatase 132 U/L (40-110); Anion Gap 14 mmol/L (10-20); BUN (Urea Nitrogen) 8 mg/dL (7.0-18.7); Bilirubin, Total 0.9 mg/dL (0.2-1.2); Calc. Creatinine Clearance 0 mL/min (70-130); Calcium 8.9 mg/dL (7.8-10.44); Carbon Dioxide 21 mmol/L (22-29); Chloride 103 mmol/L (98-107); Globulin 3.2 g/dL (2.4-3.5); Glucose 103 mg/dL (70-105); Lipase 9 U/L (8-78); Potassium 3.8 mmol/L (3.5-5.1); Protein, Total 6.1 g/dL (6.0-8.3); Sodium 134 mmol/L (136-145)
[2021-07-27 10:59] LABS: Band 2 % (5-11); Eosinophils 2 % (0-10); Hemoglobin 13.1 g/dL (12.0-16.0); Lymphocytes 38 % (21-51); MDiff Complete? YES; Mean Corpuscular HGB CONC 33.4 g/dL (32.0-36.0); Mean Corpuscular Hemoglobin 34.4 pg (27.0-31.0); Mean Platelet Volume 8.2 fL (7.4-10.4); Monocytes 8 % (0-10); Neutrophil 49 % (42-75); Platelet Count 321 thou/uL (130-400); Red Blood Cell (RBC) Count 3.81 mill/uL (4.20-5.40); White Blood Cell (WBC) Count 6.7 thou/uL (4.8-10.8)
[2021-07-27] MEDS ORDERED: Iopamidol-370 76% 500 ML 1 ML ONE (11:15)
[2021-07-27] MEDS ORDERED: Lidocaine 4% Cream 5 GM TUBE w/ Tegaderm ONE ×2 (13:46→13:47)
[2021-07-27] MEDS ORDERED: Lidocaine 1% PF 5 ML VIAL ONE (14:24)
== END 2021-07-27 15:33 | disposition home or self-care (01) ==
LOC: ERS 09:36
DX: L76.34 Postprocedural seroma of skin and subcutaneous tissue following other procedure (principal); L03.311 Cellulitis of abdominal wall; I10 Essential (primary) hypertension; E03.9 Hypothyroidism, unspecified; F17.210 Nicotine dependence, cigarettes, uncomplicated
CPT/HCPCS: 10140; 36415; 74177; 80053; 83605; 83690; 85025; 87040; Q9967

== ENCOUNTER 2021-11-19 13:57 | Outpatient (CLI) | payer OTHER | END 2021-11-19 13:58 | disposition home or self-care (01) | LOC: BICRAD 13:57 | PROVIDERS: ATTEND Family Medicine | DX: R10.84 Generalized abdominal pain (principal) | CPT/HCPCS: 74018; 80053; 85025 ==

== ENCOUNTER 2022-02-07 13:32 | Outpatient (CLI) | payer OTHER | END 2022-02-07 13:33 | disposition home or self-care (01) | LOC: BICMAMMO 13:32 | PROVIDERS: ATTEND Family Medicine | DX: Z12.31 Encounter for screening mammogram for malignant neoplasm of breast (principal); Z80.3 Family history of malignant neoplasm of breast | CPT/HCPCS: 77063; 77067 ==

== ENCOUNTER 2022-02-21 09:25 | Outpatient (CLI) | payer OTHER ==
[2022-02-21] MEDS ORDERED: Iopamidol-370 76% 500 ML 1 ML ONE (15:57)
== END 2022-02-21 09:26 | disposition home or self-care (01) ==
LOC: BICCT 09:25
PROVIDERS: ATTEND Internal Medicine Hematology & Oncology
DX: C78.7 Secondary malignant neoplasm of liver and intrahepatic bile duct (principal); C56.1 Malignant neoplasm of right ovary; R91.1 Solitary pulmonary nodule
CPT/HCPCS: 71260; 74177; Q9967

== ENCOUNTER 2022-08-12 07:54 | Outpatient (CLI) | payer OTHER ==
[2022-08-12] MEDS ORDERED: Iopamidol 370 76% 100 ML VIAL ONE (09:19)
== END 2022-08-12 07:55 | disposition home or self-care (01) ==
LOC: CT 07:54
PROVIDERS: ATTEND Family Medicine
DX: N82.3 Fistula of vagina to large intestine (principal); K76.9 Liver disease, unspecified; R59.0 Localized enlarged lymph nodes; C78.6 Secondary malignant neoplasm of retroperitoneum and peritoneum; M85.88 Other specified disorders of bone density and structure, other site; K76.0 Fatty (change of) liver, not elsewhere classified; K62.89 Other specified diseases of anus and rectum; C78.7 Secondary malignant neoplasm of liver and intrahepatic bile duct
CPT/HCPCS: 74177; Q9967

== ENCOUNTER 2022-08-21 17:42 | Inpatient (IN) | payer OTHER ==
[~2022-08-21 17:42] MED LIST changes: -Iopamidol 370 76% 100 ML VIAL ONE; +Iopamidol-370 76% 500 ML 1 ML ONE
[2022-08-21] MEDS ORDERED: Morphine 4 MG/ML VIAL ONE ×3 (18:12→20:21)
[2022-08-21] MEDS ORDERED: Ondansetron PF 4 MG/2 ML Vial ONE ×2 (18:12→23:03)
[2022-08-21 19:11] LABS: ALT (SGPT) 18 U/L (8-55); AST (SGOT) 17 U/L (5-34); Albumin 3.6 g/dL (3.5-5.0); Alkaline Phosphatase 89 U/L (40-110); Anion Gap 17 mmol/L (10-20); BUN (Urea Nitrogen) 31 mg/dL (9.8-20.1); Bilirubin, Direct 0.2 mg/dL (0.1-0.3); Bilirubin, Total 0.6 mg/dL (0.2-1.2); Calc. Creatinine Clearance 0 mL/min (70-130); Calcium 9.3 mg/dL (7.8-10.44); Carbon Dioxide 21 mmol/L (22-29); Chloride 104 mmol/L (98-107); Estimated GFR 106; Globulin 2.8 g/dL (2.4-3.5); Glucose 131 mg/dL (70-105); Lipase 5 U/L (8-78); Potassium 4.3 mmol/L (3.5-5.1); Protein, Total 6.4 g/dL (6.0-8.3); Sodium 138 mmol/L (136-145)
[2022-08-21] MEDS ORDERED: HYDROmorphone 0.5 MG/0.5 ML SYRINGE ONE ×3 (21:14→21:59)
[2022-08-21 22:33] LABS: Hemoglobin 13.2 g/dL (12.0-16.0); Mean Corpuscular HGB CONC 31.3 g/dL (32.0-36.0); Mean Corpuscular Hemoglobin 24.9 pg (27.0-31.0); Mean Corpuscular Volume 79.8 fl (78.0-98.0); Mean Platelet Volume 8.7 fL (7.4-10.4); Platelet Count 349 10x3/uL (130-400); RBC Distribution Width 18.4 % (11.5-14.5); Red Blood Cell (RBC) Count 5.29 mill/uL (4.20-5.40); White Blood Cell (WBC) Count 10.3 10x3/uL (4.8-10.8)
[2022-08-21 22:34] LABS: Lactic Acid 2.6 mmol/L (0.5-2.2)
[2022-08-21 22:52] LABS: Anisocytosis SLIGHT = 6-15 cells (100X) (0-5/hpf); Band 46 % (5-11); Eosinophils 1 % (0-10); Hypochromia SLIGHT = 6-15 cells (100X) (0-5/hpf); Lymphocytes 13 % (21-51); MDiff Complete? YES; Metamyelocyte 1 % (0-0); Myelocyte 1 % (0-0); Neutrophil 38 % (42-75); Platelet Morphology Comment Appears Adequate; Polychromasia SLIGHT = 2-3 cells (100X) (0-2/hpf); Reflex for Review?? YES
[2022-08-21] MEDS ORDERED: Piperacillin/Tazobactam 3.375 GM VIAL ONE (22:56)
[2022-08-21] MEDS ORDERED: ALPRAZolam 0.5 MG TAB PO PRN (23:02)
[2022-08-21] MEDS ORDERED: Piperacillin/Tazobactam 3.375 GM in Sodium Chloride 0.9% 100 ML IVPB SCH (23:15)
[2022-08-22 00:03] LABS: SARS-CoV-2 NAA Rapid Test Not Detected (NotDetected)
[2022-08-22] MEDS: Sodium Chloride 0.9% 1,000 ML IV SCH ×4 (00:23→14:47)
[2022-08-22] MEDS: Ondansetron PF 4 MG/2 ML Vial IVP PRN ×2 (02:46→08:39)
[2022-08-22] MEDS: Morphine 4 MG/ML VIAL SLOW IVP PRN ×3 (02:47→08:36)
[2022-08-22 03:35] VITALS: BMI 26.4
[2022-08-22] MEDS: Piperacillin/Tazobactam 3.375 GM in Sodium Chloride 0.9% 100 ML IVPB SCH ×2 (04:28→12:00)
[2022-08-22] MEDS ORDERED: Pantoprazole 40 MG VIAL IVP SCH (09:00)
[2022-08-22] MEDS ORDERED: Pregabalin 75 MG CAP PO SCH (09:00)
[2022-08-22] MEDS ORDERED: Thyroid 30 MG TAB PO SCH (09:00)
[2022-08-22] MEDS ORDERED: Dicyclomine 10 MG CAP PO SCH (09:00)
[2022-08-22] MEDS: Morphine 4 MG/ML VIAL SLOW IVP SCH ×4 (09:44→14:44)
[2022-08-22] MEDS: Lorazepam 2 MG/ML VIAL SLOW IVP SCH ×4 (09:45→14:35)
[2022-08-22 11:59] VITALS: TEMP 98.1
[2022-08-22] MEDS ORDERED: Fentanyl CADD 100 ML IV SCH (14:00)
[2022-08-22] MEDS ORDERED: DISCONTINUE PREVIOUS NARCOTIC PAIN MEDICATIONS AND BENZODIAZEPINES FS SCH (14:00)
[2022-08-22] MEDS ORDERED: Morphine 4 MG/ML VIAL SLOW IVP SCH (14:00)
== END 2022-08-22 14:56 | disposition hospice, inpatient (51) | DRG 394 ==
LOC: ERS 17:42 → ERHOLD 22:37 → IMCU/EMU 08-22 02:39
PROVIDERS: ADMIT Family Medicine; ATTEND Internal Medicine
DX: K63.1 Perforation of intestine (nontraumatic) (principal); C56.9 Malignant neoplasm of unspecified ovary; C78.5 Secondary malignant neoplasm of large intestine and rectum; C78.7 Secondary malignant neoplasm of liver and intrahepatic bile duct; Z51.5 Encounter for palliative care; Z66 Do not resuscitate; E03.9 Hypothyroidism, unspecified; I10 Essential (primary) hypertension; F17.210 Nicotine dependence, cigarettes, uncomplicated; F41.9 Anxiety disorder, unspecified; R10.84 Generalized abdominal pain; E86.0 Dehydration; Z20.822 Contact with and (suspected) exposure to COVID-19; K21.9 Gastro-esophageal reflux disease without esophagitis; J45.909 Unspecified asthma, uncomplicated; Z88.1 Allergy status to other antibiotic agents; Z79.899 Other long term (current) drug therapy; Z79.890 Hormone replacement therapy; Z90.49 Acquired absence of other specified parts of digestive tract; Z98.890 Other specified postprocedural states; Z90.722 Acquired absence of ovaries, bilateral; Z90.89 Acquired absence of other organs; Z80.3 Family history of malignant neoplasm of breast
CPT/HCPCS: 36415; 74177; 80053; 80076; 83605; 83690; 85025; 85060; 93005; C9113; J1170; J2060; J2270; J2405; J2543; J3490; J7050; Q9967

== ENCOUNTER 2022-08-22 15:03 | Inpatient (IN) | payer OTHER ==
[2022-08-22] MEDS ORDERED: Lorazepam 2 MG/ML VIAL SLOW IVP PRN (15:22)
[2022-08-22] MEDS ORDERED: Morphine 4 MG/ML VIAL SLOW IVP PRN (15:25)
[2022-08-22] MEDS ORDERED: Acetaminophen 650 MG Suppository PR PRN (15:30)
[2022-08-22] MEDS ORDERED: Ondansetron PF 4 MG/2 ML Vial IVP PRN (15:30)
[2022-08-22] MEDS ORDERED: diphenhydrAMINE 50 MG/ML VIAL IVP PRN (15:30)
[2022-08-22] MEDS ORDERED: Scopolamine 1.5 mg/72 hour Patch TOP PRN ×2 (15:30)
[2022-08-22 16:59] VITALS: BMI 26.4
[2022-08-22] MEDS ORDERED: FLU VACC QS2022-23(6MO UP)/PF 60 MCG/0.5 ML SYRINGE IM ONE (17:15)
[2022-08-22] MEDS: Morphine 4 MG/ML VIAL SLOW IVP SCH ×2 (18:09→18:10)
[2022-08-22] MEDS: Lorazepam 2 MG/ML VIAL SLOW IVP SCH (18:09)
== END 2022-08-22 18:24 | disposition expired | DRG 951 ==
LOC: T4-B 15:03 → IMCU/EMU 15:17
PROVIDERS: ADMIT Family Medicine; ATTEND Family Medicine
DX: Z51.5 Encounter for palliative care (principal); K63.1 Perforation of intestine (nontraumatic); A41.9 Sepsis, unspecified organism; C56.9 Malignant neoplasm of unspecified ovary; C78.80 Secondary malignant neoplasm of unspecified digestive organ; C78.5 Secondary malignant neoplasm of large intestine and rectum; Z66 Do not resuscitate; E03.9 Hypothyroidism, unspecified; F41.9 Anxiety disorder, unspecified; I49.9 Cardiac arrhythmia, unspecified; I46.2 Cardiac arrest due to underlying cardiac condition; Z79.890 Hormone replacement therapy; Z79.51 Long term (current) use of inhaled steroids; Z79.52 Long term (current) use of systemic steroids; Z79.899 Other long term (current) drug therapy